=== PATIENT | female | born 1985 | race Caucasian/White ===

== ENCOUNTER 2021-10-26 08:09 | Outpatient (CLI) | payer BC, SELFPAY ==
--- NOTE | ~2021-10-26 | US_ITS ---
EXAMINATION: US abdomen complete EXAM DATE: 10/26/2021 08:52 INDICATION: Unspecified abdominal pain. TECHNIQUE: Multiple grayscale and Doppler images of the complete abdomen were obtained (by a technolo eliceo who performed the scan) and subsequently reviewed. There is no prior study for comparison. FINDINGS: The abdominal aorta is normal in caliber. Visualized portion IVC is patent. The pancreatic head a nd body are normal in appearance. The pancreatic tail is not visualized. There is echogenic liver parenchyma, hepatic steatosis. There are no focal liver lesions identified. There is no evidence of intrahepatic biliary duct dilation. Portal venous flow was seen in the he patopedal, normal direction and has normal Doppler waveform. Common bile duct measures 11 mm, which is dilated but not uncommon for postcholecystectomy status. Right kidney: There is normal contour and echogenicity. It measures 12.1 x 5.0 x 7.0 centimeters. There are no focal renal lesions identified. There is no hydronephrosis. Left kidney: There is normal contour and echogenicity. It measures 13.1 x 5.7 x 5.6 centimeters. T here are no focal renal lesions identified. There is no hydronephrosis. The spleen measures 13.5 x 4.8 centimeters and is morphologically normal. IMPRESSION: 1. Hepatic steatosis. Reviewed, dictated and finalized at location B. IMPRESSION: 1. Hepatic steatosis.
== END 2021-10-26 08:10 ==
PROVIDERS: PCP Family Medicine; Visit Provider Family Medicine
DX: R10.9 Unspecified abdominal pain (principal); K76.0 Fatty (change of) liver, not elsewhere classified
CPT/HCPCS: 76700

== ENCOUNTER 2021-12-18 15:54 | Outpatient (CLI) | payer BC, SELFPAY ==
--- NOTE | ~2021-12-18 | US_ITS ---
EXAMINATION: US thyroid DATE: 12/18/2021 16:09 INDICATION: Goiter. TECHNIQUE: Multiple ultrasound images of the thyroid were obtained. COMPARISON: None. FINDINGS: The right thyroid lobe measures 6.3 x 2.1 x 2.0 cm. The left thyroid lobe measures 5.1 x 1.6 x 1.7 c m. The thyroid is diffusely heterogeneous and hypoechoic. Vascularity is normal. No discrete nodule. IMPRESSION: 1. Heterogeneous thyroid, likely chronic lymphocytic (Martín) thyroiditis. Reviewed, dictated and finalized at location A.
== END 2021-12-18 15:55 ==
PROVIDERS: PCP Family Medicine; Visit Provider Internal Medicine Endocrinology, Diabetes & Metabolism
DX: E04.9 Nontoxic goiter, unspecified (principal)
CPT/HCPCS: 76536

== ENCOUNTER 2024-03-30 09:20 | Outpatient (CLI) | payer BC, SELFPAY ==
--- NOTE | ~2024-03-30 | CT_ITS ---
EXAMINATION: CT abdomen wo/w con DATE: 03/30/2024 10:54 INDICATION: Adrenal hyperplasia TECHNIQUE: Computed tomography (CT) of the abdomen was performed without and with 100 mL Omnipaque-35 0 intravenous contrast utilizing a standard adrenal protocol. Automated exposure control and iterativ e reconstruction technique were employed. The dose-length product was 2631.69 mGy-cm. COMPARISON: None FINDINGS: Lung bases are clear. Heart size is normal. No pericardial or pleural effusion. Diffuse hepatic steat osis. Bladder not visualized and likely surgically absent. Spleen, pancreas, bilateral adrenal glands and kidneys are normal. Postoperative change of prior gastric bypass procedure. Visualized bowels ar e unremarkable with normal appendix. No pathologically enlarged abdominal or upper pelvic lymphadenop athy. Chronic mild likely physiologic anterior wedging at T10-T12. Mild lower thoracic spondylosis. IMPRESSION: 1. Diffuse hepatic steatosis. 2. Normal bilateral adrenal glands. Reviewed, dictated and finalized at location A.
== END 2024-03-30 09:21 | disposition home or self-care (01) ==
DX: E27.0 Other adrenocortical overactivity (principal); K76.0 Fatty (change of) liver, not elsewhere classified
CPT/HCPCS: 74170; Q9967

== ENCOUNTER 2024-05-18 13:29 | Outpatient (CLI) | payer BC, SELFPAY ==
--- NOTE | ~2024-05-18 | MR_ITS ---
Procedure: MR brain/brain stem wo/w con Ordering provider: Violeta Mendez, History: . Disorder of pituitary gland . Comparison: None. Technique: MRI brain with and without contrast. MRI pituitary utilizing thin slice coronal and sagit dixie pre- and postcontrast images per protocol. 20 mL of MultiHance was given IV. FINDINGS: BONES: Normal. CRANIOCERVICAL JUNCTION: normal. MAJOR INTRACRANIAL VESSELS: Normal flow void. OPTIC NERVES AND CRANIAL NERVES VII AND VIII COMPLEXES: Grossly normal. BRAIN PARENCHYMA AND CSF SPACES: No visible white matter disease. The brainstem and cerebellum are n ormal. No acute or chronic intracranial hemorrhage. No extra axial fluid collections. Diffusion weigh nemo and ADC mapping images reveal no recent ischemia. No midline shift or mass effect. PARANASAL SINUSES: Normal. PITUITARY: Partial empty sella turcica is noted. Slight asymmetry is seen in the pituitary gland with right small area of late nonenhancement which may represent an adenoma although this is not the typi joaquina pattern of enhancement. Follow-up advised.No suprasellar abnormality. MASTOIDS: Normal SUPERFICIAL/SURROUNDING SOFT TISSUES: Normal. IMPRESSION: Possible pituitary adenoma in the right paracentral area of the pituitary gland measuring 5 mm. Follo w-up advised. Otherwise, no abnormality seen in the brain. Reviewed, dictated and finalized at location A. IMPRESSION: Possible pituitary adenoma in the right paracentral area of the pituitary gland measuring 5 mm. Follow-up advised. Otherwise, no abnormality seen in the brain .
== END 2024-05-18 13:30 | disposition home or self-care (01) ==
PROVIDERS: Visit Provider Internal Medicine Endocrinology, Diabetes & Metabolism
DX: E23.7 Disorder of pituitary gland, unspecified (principal)
CPT/HCPCS: 70553; A9577

== ENCOUNTER 2025-01-31 08:51 | Outpatient (CLI) | payer BC, SELFPAY ==
--- NOTE | ~2025-01-31 | MR_ITS ---
EXAMINATION: MR brain/brain stem wo/w con DATE: 01/31/2025 10:22 INDICATION: Disorder of pituitary TECHNIQUE: Magnetic resonance imaging (MRI) of the brain and brainstem was performed without and with 19 mL Multihance intravenous contrast. Whole-brain sequences included sagittal T1-weighted FSE, axia l diffusion-weighted FS EPI, axial T2*-weighted GRE, axial T2-weighted FLAIR Propeller, and axial T2- weighted Propeller. Small [id number] sequences included sagittal and coronal T1-weighted FSE cente red at the pituitary. Postcontrast sequences included small [id number] coronal T1-weighted FSE in a time course and sagittal T1-weighted FSE and whole-brain axial T1-weighted FSE. Apparent diffusion coefficient (ADC) maps were created. COMPARISON: 05/18/2024 FINDINGS: There are no areas of restricted diffusion to suggest acute infarction. No intracranial hemorrhage or abnormal intracranial mass lesion. There are no intraparenchymal signal abnormalities seen on the ot her pulse sequences. The ventricles are symmetric and normal in size. No interval change in the pitui tary which occupies the inferior third of the sella with a concave cephalad margin consistent with pa rtially empty sella. The pituitary stalk is midline. Again seen is a subtle inconsistently visualiz ed thin linear region of decreased signal on the post contrast images at the right side of the pituit rosmery on the coronal imaging and measures 1 mm diameter on the sagittal imaging which could represent a small microadenoma or a tiny arterial flow void. There are no abnormal extra-axial fluid collections . Flow voids are seen in the cerebral arteries on the T2-weighted sequences consistent with their exp ected patency. Visualized orbits and soft tissues are unremarkable. No other abnormal enhancing lesio ns on postcontrast imaging. IMPRESSION: 1. Partially empty sella with concave margin to the pituitary which occupies the caudal third of the sella hemorrhage can be seen in the setting of idiopathic intracranial hypertension. Thin linear focu s of decreased signal which is inconsistently visualized in the right side of the pituitary on the po stcontrast coronal imaging. This could represent a small microadenoma although configuration favors a tiny arterial flow void. 2. Otherwise unremarkable brain MRI. Reviewed, dictated and finalized at location A. IMPRESSION: 1. Partially empty sella with concave margin to the pituitary which occupies th e caudal third of the sella hemorrhage can be seen in the setting of idiopathic intracranial hypertension. Thin linear focus of decreased signal which is inco nsistently visualized in the right side of the pituitary on the postcontrast co obed imaging. This could represent a small microadenoma although configuration favors a tiny arterial flow void. 2. Otherwise unremarkable brain MRI.
--- OUTSIDE RECORDS SUMMARY | 2025-01-31 08:55 | XMS_ITS | Clinical Summary ---
Author Organization [facility] Address [address] [place] [address] Phone Care Team Providers Care Psych Rn Name Role Phone Pallavi Meeks MD Primary Care Provider [phone] Allergies Active Allergy Reactions Criticality Noted Date Comments Codeine Anaphylaxis High 11/16/2017 Medications iron,carb/vit C/vit B12/folic (IRON 100 PLUS ORAL) Take by mouth. Activ e ergocalciferol (VITAMIN D2) 50,000 unit capsule Take 1 Capsule (50,000 Units) by mouth every 7 days. 12 Capsule 1 9 Active diazePAM (VALIUM) 5 mg tabletIndicatio ns:Claustrophob ia 1-2 tab 1/hr before procedure and may repeat in 1 hr if needed during the procedure.. 4 Tablet 9 Active Active Problems Problem Noted Date Diagnosed Date Numbness and tingling of right face 01/04/2019 Eye twitch 01/04/2019 Family history of MS (multiple sclerosis) 2018 Fatigue 08/29/2018 Sciatica of right side 08/29/2018 Morbid obesity with BMI of 50.0-59.9, adult 08/02 History of PCOS 08/29/2018 History of tonsillectomy 08/29/2018 Chronic anemia 08/29/2018 Benign positional vertigo 08/29/2018 Vaginal delivery 03/18/2018 Clear vaginal discharge 01/23/2018 Post depression 03/25/2016 NVD, F 7/14 02/11/2016 04/24, Fever, WBC 5.1, UT I/pyelo?, cipro PO, pt refusing IV 04/24/2013 Lower abdominal pain Resolved Problems Problem Noted Date Diagnosed Date Resolved Date labor, AROM(1215), gbs-, B+ 04/24/2013 04/24/2013 Immunizations Immunization Administration Dates Next Due (ADACEL/BOOSTRIX)(10 YR UP) TDAP VACCINE, 0.5ML, IM 01/14/2016 Family History Medical History Relation Name Comments Healthy Father Healthy Mother Relation Name Status Comments Father Alive Mother Alive Social History Tobacco Use Types Packs/Day Years Used Date Smoking Tobacco: Never Smokeless Tobacco: Never Alcohol Use Standard Drinks/Week Comments No 0 (1 standard drink = 0.6 oz pur e alcohol) Comments No Sex and Gender Information Value Date Recorded Sex Assigned at Not on file Legal Sex Female 10:26 PM CDT Gender Identity Not on file Sexual Orientation Not on file Last Filed Vital Signs Vital Sign Reading Time Taken Comments Blood Pressure 122/82 01/04/2019 11:33 AM CDT Pulse 70 01/04/2019 11:33 AM CDT Temperature 36.8 C (98.2 F) 01/04/2019 11:33 AM CDT Respiratory Rate 16 01/04/2019 11:33 AM CDT Oxygen Saturation 97% 01/04/2019 11:33 AM CDT Inhaled Oxygen Concentration - - Weight 174.2 kg (384 lb) 01/04/2019 11:33 AM CDT Height 172.7 cm (5' 8) 01/04/2019 11:33 AM CDT Body Mass Index 58.39 01/04/2019 11:33 AM CDT Plan of Treatment Health Maintenance Due Date Last Done Comments HEPATITIS B VACCINES (1 of 3 - 19+ 3-dose series) 2004 HPV/Cotest (21-29) 2006 CERVICAL CANCER SCREENING 10/10/2015 HPV/Cotest (30-65) 10/10/2015 PAP SMEAR 10/10/2015 Pre-Diabetes and Diabetes Screening 01/04/2022 01/04/2019 Preventative Visit- Commercial 08/01/2024 07/07/2017, 08/22/2012 INFLUENZA VACCINE (#1) 2025 04/01/2018 DTAP/TDAP/TD VACCINES (3 - T d or Tdap) 01/13/2026 01/14/2016, 06/05/2013 HPV VACCINES Aged Out No longer eligi ble based on patient's age to complete this topic Procedures Procedure Name Priority Date/Time Associated Diagnosis Comments HEMOGLOBIN A1C Routine 01/04/2019 12:34 PM CDT Neurological deficit present Numbness and tingling of right face Fatigue, unspecified type Chronic anemia Morbid obesity with BMI of 50.0-59.9, adult (CMS/[facility]) Normal routine physical examination from Last 3 Months or Most Recently Relevant to Health Maintenance Results * HEMOGLOBIN A1C (01/04/2019 12:34 PM CDT) HEMOGLOBIN A1C 5.6 <5.7 % 01/04/2019 7:31 PM CDT [facility] EST. AVG GLUCOSE, A1C 114 mg/dL 01/04/2019 7:31 PM CDT [facility] Blood Venipuncture / Unknown 01/04/2019 12:34 PM CDT 01/04/2019 12:34 PM CDT Narrative [facility] - 01/04/2019 7:31 PM CDT HGB A1C INTERPRETATION NORMAL: <5.7% PRE-DIABETES: 5.7 - 6.4% DIABETES: 6.5% OR GREATER Pallavi Meeks MD CHEMISTRY ORDERABLES Final Resu lt [facility] [employer] [facility] CLIA# [id number] [address] [place] [address] [address] from Last 3 Months or Most Recently Relevant to Health Maintenance Insurance [address] [place] [place] [address] [employer] [facility] Address: [facility] [id number] [place] [id number] [address] [id number] Advance Directives For more information, please contact: [phone] * Full Code (Latest Code Status on File) Date Activated Date Inactivated Comments 03/18/2018 7:39 PM 03/19/2018 7:38 PM * Full Code Date Activated Date Inactivated Comments 03/18/2018 3:36 PM 03/18/2018 7:39 PM * Full Code Date Activated Date Inactivated Comments 01/23/2018 5:24 PM 01/23/2018 9:01 PM * Full Code Date Activated Date Inactivated Comments 11/16/2017 1:31 PM 11/16/2017 4:34 PM * Full Code Date Activated Date Inactivated Comments 02/12/2016 4:58 AM 02/14/2016 1:03 PM Care Teams Psych Rn Relationship Specialty [place] [address] [place] [address] PCP - General Internal Medicine 08/29/18
--- OUTSIDE RECORDS SUMMARY | 2025-01-31 08:55 | XMS_ITS | Encounter Summary ---
Author Organization [facility] Address [address] [place] [address] Phone Care Team Providers Care Math And Science Instructor Name Role Phone Andre Novoa MD Unavailable [phone] Jacki Medel NP Primary Care Provider [phone] Encounter Details Date Type Department Care Team (Late st Contact Info) Description 01/31/2025 Orders Only [facility] [address] [place] [address] [address] [place] [address] Katya Murillo RN Iron deficiency anemia due to chronic blood loss (Primary Dx) Social History Tobacco Use Types Packs/Day Years Used Date Smoking Tobacco: Never Smokeless Tobacco: Never Alcohol Use Standard Drinks/Week Comments Yes 0 (1 standard drink = 0.6 oz pur e alcohol) AUDIT-C Answer Date Recorded Q1: How often do you have a drink containing alc ohol? Monthly or less 03/19/2022 Q2: How many drinks containi ng alcohol do you have on a typical day when you are drinking? 1 or 2 03/19/2022 Q3: How often do you have si x or more drinks on one occasion? 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 Gender Identity Not on file Sexual Orientation Not on file documented as of this encounter Plan of Treatment Scheduled Orders Name Type Priority Associated Diagnoses Orde r Schedule CBC with auto differential Lab Routine Iron deficiency anemia due to chronic blood loss Expected: 02/06/2025, Expires: 01/31/2026 Ferritin Lab Routine Iron deficiency anemia due to chronic blood loss Expected: 02/06/2025, Expires: 01/31/2026 Iron profile w/ IBC Lab Routine Iron deficiency anemia due to chronic blood loss Expected: 02/06/2025, Expires: 01/31/2026 Vitamin B12 Lab Routine Iron deficiency anemia due to chronic blood loss Expected: 02/06/2025, Expires: 01/31/2026 Folate Lab Routine Iron deficiency anemia due to chronic blood loss Expected: 02/06/2025, Expires: 01/31/2026 documented as of this encounter Visit Diagnoses Diagnosis Iron deficiency anemia due to chronic blood loss- Primary Iron deficiency anemia secondary to blood loss (chronic) documented in this encounter Orders Appointment Requests Count Last Ordered Date Fi rst Ordered Date ONCBCN LAB APPOINTMENT 1 01/31/2025 documented in this encounter Care Teams Math And Science Instructor Relationship Specialty Start Date End Date Jacki Medel NP [address] [address] PCP - General Nurse Practitioner 02/01/24 Andre Novoa MD [address] [place] [address] MEDICAL ONCOLOGY, [facility] [address] [place] [address] Medical Oncologist/Men'S Golf Coach Hematology and Oncology 02/01/24 documented as of this encounter
--- OUTSIDE RECORDS SUMMARY | 2025-01-31 08:55 | XMS_ITS | Encounter Summary ---
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 Gender Identity Not on file Sexual Orientation Not on file documented as of this encounter Plan of Treatment Not on file documented as of this encounter Procedures Procedure Name Priority Date/Time Associated Diagnosis Comments DIFFERENTIAL AUTO Routine 01/30/2025 1:0 1 PM CDT Iron deficiency anemia due to chronic blood loss IRON PROFILE W/ IBC Routine 01/30/2025 1 :01 PM CDT Iron deficiency anemia due to chronic blood loss CBC WITH AUTO DIFFERENTIAL Routine 01/30/2025 1:01 PM CDT Iron deficiency anemia due to chronic blood loss FOLATE Routine 01/30/2025 1:01 PM CDT Iron deficiency anemia due to chronic blood loss FERRITIN Routine 01/30/2025 1:01 PM CDT Iron deficiency anemia due to chronic blood loss VITAMIN B12 Routine 01/30/2025 1:01 PM CDT Iron deficiency anemia due to chronic blood loss documented in this encounter Results * Differential, auto (01/30/2025 1:01 PM CDT) [facility] Neutrophil abs 4.38 1.50 - 6.50 K/cumm Comment:Testing performed by : [address] [address] Imm gran abs 0.02 0.00 - 0.10 K/cumm CHANCE Comment:Testing performed by : [address] [address] Lymphocyte abs 1.93 0.80 - 3.30 K/cumm CHANCE Comment:Testing performed by : [address] [address] Monocyte abs 0.48 0.20 - 0.80 K/cumm CHANCE Comment:Testing performed by : [address] [address] Eosinophil abs 0.13 0.00 - 0.50 K/cumm CHANCE Comment:Testing performed by : [address] [address] Basophil abs 0.02 0.00 - 0.10 K/cumm CHANCE Comment:Testing performed by : [address] [address] Neutrophil pct 62.9 % CHANCE Comment: Interpretive Data Percent cell count reference ranges are not reported, since discordance with absolute values may lead to misinterpretation of CBC data. Current Interpretive Data was last revised on 2017. Testing performed by: [address] [address] Imm gran pct 0.3 % [facility] Comment: Interpretive Data Percent cell count reference ranges are not reported, since discordance with absolute values may lead to misinterpretation of CBC data. Current Interpretive Data was last revised on 2017. Testing performed by: [address] [address] Lymphocyte pct 27.7 % C[facility] Comment: Interpretive Data Percent cell count reference ranges are not reported, since discordance with absolute values may lead to misinterpretation of CBC data. Current Interpretive Data was last revised on 2017. Testing performed by: [address] [address] Monocyte pct 6.9 % [facility] Comment: Interpretive Data Percent cell count reference ranges are not reported, since discordance with absolute values may lead to misinterpretation of CBC data. Current Interpretive Data was last revised on 2017. Testing performed by: [address] [address] Eosinophil pct 1.9 % [facility] Comment: Interpretive Data Percent cell count reference ranges are not reported, since discordance with absolute values may lead to misinterpretation of CBC data. Current Interpretive Data was last revised on 2017. Testing performed by: [address] [address] Basophil pct 0.3 % [facility] Comment: Interpretive Data Percent cell count reference ranges are not reported, since discordance with absolute values may lead to misinterpretation of CBC data. Current Interpretive Data was last revised on 2017. Testing performed by: [address] [address] Blood 01/30/2025 1:01 PM CDT 01/30/2025 1:03 PM CDT Andre Novoa MD LAB BLOOD ORDERABLES Fi nal Result CHACNE [address] [facility] Department [place] [address] * CBC with auto differential (01/30/2025 1:01 PM CDT) WBC 6.96 3.80 - 9.90 K/cumm Comment:Testing performed by : [address] [address] Hgb 13.1 11.9 - 15.5 g/dL CHANCE Comment:Testing performed by : [address] [address] Hct 39.7 35.6 - 45.5 % CHANCE Comment:Testing performed by : [address] [address] Plt 329 150 - 400 K/cumm CHANCE Comment:Testing performed by : [address] [address] MPV 9.4 9.1 - 12.3 fL CHANCE Comment:Testing performed by : [address] [address] RBC 4.79 3.90 - 5.20 M/cumm CHANCE Comment:Testing performed by : [address] [address] MCV 82.9 81.3 - 96.4 fL [facility]ANCE Comment:Testing performed by : [address] [address] MCH 27.3 27.1 - 33.3 pg CHANCE Comment:Testing performed by : [address] [address] MCHC 33.0 32.3 - 35.7 g/dL CHANCE Comment:Testing performed by : [address] [address] RDW CV 13.2 11.1 - 14.9 % CHANCE Comment:Testing performed by : [address] [address] RDW SD 39.8 35.7 - 48.1 fL CHANCE Comment:Testing performed by : [address] [address] NRBC abs 0.00 0.00 - 0.01 K/cumm CHANCE Comment:Testing performed by : [address] [address] ANC Prelim 4.38 1.50 - 6.50 K/cumm [facility] [place] Comment: Interpretive Data The rapid ANC is a preliminary automated count and may vary from the final ANC (Neut Abs) reported in the WBC differential that follows. Current interpretive data was last revised 2024. Testing performed by: [address] [address] Blood 01/30/2025 1:01 PM CDT 01/30/2025 1:03 PM CDT Andre Novoa MD LAB BLOOD ORDERABLES Fi nal Result Performing Organization Address City/[facility]/ZIP Co de Phone Number [address] [place] [address] * Ferritin (01/30/2025 1:01 PM CDT) Ferritin 53 13 - 150 ng/mL Comment:Testing performed by : [address] [address] Blood 01/30/2025 1:01 PM CDT 01/30/2025 4:13 PM CDT Andre Novoa MD LAB BLOOD ORDERABLES Fi nal Result [address] [place] [address] * Iron profile w/ IBC (01/30/2025 1:01 PM CDT) Iron See Comment 20 - 944 Comment: Unable to perform testing due to: hemolysis. If testing still needed, please re-order and contact the patient to return for testing. Testing performed by: [address] [address] TIBC See Comment 250 - 400 [facility] Comment: Unable to perform testing due to: hemolysis. If testing still needed, please re-order and contact the patient to return for testing. Testing performed by: [address] [address] Transferrin saturation See Comment 20 - 50 [facility] Comment: Unable to perform testing due to: hemolysis. If testing still needed, please re-order and contact the patient to return for testing. Testing performed by: [address] [address] Blood 01/30/2025 1:01 PM CDT 01/30/2025 4:13 PM CDT Andre Novoa MD LAB BLOOD ORDERABLES Fi nal Result Performing Organization Address [facility] Co de Phone Number [address] [place] [address] * Vitamin B12 (01/30/2025 1:01 PM CDT) Pathologist [facility] Vitamin B12 See Comment [phone] Comment: Unable to perform testing due to: hemolysis. If testing still needed, please re-order and contact the patient to return for testing. Testing performed by: [address] [address] Blood 01/30/2025 1:01 PM CDT 01/30/2025 4:14 PM CDT Andre Novoa MD LAB BLOOD ORDERABLES Fi nal Result Performing Organization Address [facility] Co de Phone Number [address] [facility] [place] [address] * Folate (01/30/2025 1:01 PM CDT) Folic acid See Comment >=5.0 Comment: Unable to perform testing due to: hemolysis. If testing still needed, please re-order and contact the patient to return for testing. Testing performed by: [address] [address] Blood 01/30/2025 1:01 PM CDT 01/30/2025 4:14 PM CDT us Andre Novoa MD LAB BLOOD ORDERABLES Fi nal Result [facility] [address] [facility] Department [place] [address] documented in this encounter Visit Diagnoses Diagnosis Iron deficiency anemia due to chronic blood loss Iron deficiency anemia secondary to blood loss (chronic) documented in this encounter Orders Appointment Requests Count Last Ordered Date Fi rst Ordered Date ONCBCN LAB APPOINTMENT 1 01/30/2025 documented in this encounter Care Teams Server Systems Administrator Relationship Specialty Start Date End Date Jacki Medel NP [address] [facility] [address] [place] [address] PCP - General Nurse Practitioner 02/01/24 Andre Novoa MD [address] [place] [address] MEDICAL ONCOLOGY, [facility] [address] [place] [address] Medical Oncologist/Project Surveyor Hematology and Oncology 02/01/24 documented as of this encounter
--- OUTSIDE RECORDS SUMMARY | 2025-01-31 08:55 | XMS_ITS | Encounter Summary ---
Author Organization [facility] Address [address] [place] [address] Phone Care Team Providers Care Medical Administrative Assistant Name Role Phone Andre Novoa MD Unavailable [phone] Jacki Medel NP Primary Care Provider [phone] Encounter Details Date Type Department Care Team (Late st Contact Info) Description 01/30/2025 1:15 PM CDT Office Visit [facility] Oncology [facility] [address] [place] [address] Andre Novoa MD [address] [place], [place] [id number] Iron deficiency anemia due to chronic blood [...] on file 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 Gender Identity Not on file Sexual Orientation Not on file documented as of this encounter Last Filed Vital Signs Vital Sign Reading Time Taken Comments Blood Pressure 117/77 01/30/2025 1:07 PM CDT Pulse 88 01/30/2025 1:07 PM CDT Temperature 36.7 C (98 F) 01/30/2025 1:07 PM CDT Respiratory Rate 16 01/30/2025 1:07 PM CDT Oxygen Saturation 97% 01/30/2025 1:07 PM CDT Inhaled Oxygen Concentration - - Weight 158.9 kg (350 lb 5 oz) 01/30/2025 1:07 PM CDT Height 170 cm (5' 6.93) 01/30/2025 1:07 PM CDT Body Mass Index 54.98 01/30/2025 1:07 PM CDT documented in this encounter Progress Notes * Andre Novoa MD - 01/30/2025 1:15 PM CDT Hematology/Oncology Return Visit Date: 01/30/2025 Primary Care Physician: Jacki Medel, CARL Julianna Martinez 39 y.o. female Interval History: Ms. Martinez is a 39 y.o. year old female who returns today for follow up with Hematology for Iron deficiency anemia. Since the last visit, the patient has been doing well but still has complaints of easy fatigability HPI: This is a 39-year-old woman with remote history of iron deficiency that was secondary probably to absorbed of defect from gastric bypass surgery and formerly heavy menstrual periods, but she did havehysterectomy Ultimately, the patient did require intravenous iron therapy but she has not required intravenous iron therapy for some time now. In addition, while she lost a significant amount of weight following her gastric bypass surgery in 2008 she subsequently became and following that she regained all her weight and she currently has a weight of 166 kg. 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 She does take however folic acid by mouth but she takes a 1000 mcg of B12 parenterally every week. CBC performed January 30, 2025 revealed a white blood cell count of 6900 hemoglobin of 13.1 hematocrit 39.7 and a platelet count of [id number]. Cell indices were completely normal. Last iron studies were performed 01/2024 and she had a iron of 55 ferritin of 83 and 15% saturation. Past Medical History: Diagnosis Date ??? Anemia ??? Anxiety ??? Complex atypical endometrial hyperplasia ??? Depression Depression ??? Frequent headaches ??? HX OTHER MEDICAL fatty liver related to obesity ??? Hypotension ??? Hypothyroidism ??? Low iron ??? Morbid obesity (HCC) ??? Motion sickness long distances in car Past Surgical History: Procedure Laterality Date ??? CHOLECYSTECTOMY 2008 Cholecystectomy ??? COLONOSCOPY W/ ENDOSCOPIC US 2021 ??? DILATION AND CURETTAGE OF UTERUS 2021 ??? GASTRIC BYPASS 2007 Gastric bypass ??? TONSILLECTOMY 2002 Tonsillectomy ??? WISDOM TOOTH EXTRACTION 2001 Current Outpatient Medications: ??? BD Insulin Syringe Ultra-Fine, as directed ??? medical cannabis, 1 Dose, PRN ??? Vitamin D3, take by Oral route (Patient taking differently: 5,000 Units, oral, Every morning) ??? cyanocobalamin, 1,000 mcg, subcutaneous, Weekly ??? dextroamphetamine-amphetamine, 5 mg, oral, BID ??? diphenhydrAMINE, 50 mg, oral, Nightly PRN ??? ergocalciferol, TAKE 1 CAPSULE BY MOUTH ONE TIME PER WEEK IN THE MORNING ??? ferrous sulfate, Take 1 tablet (325 mg total) by mouth ??? FLUoxetine, 40 mg, oral, QAM ??? FLUoxetine, Take 1 capsule (20 mg total) by mouth Takes with 40mg to =60 mg daily ??? folic acid, 1,000 mcg, oral, QAM ??? levothyroxine, 125 mcg, oral, Daily - 0600 ??? medroxyPROGESTERone, ??? melatonin, 6 mg, oral, Nightly PRN ??? metFORMIN XR, 500 mg, oral, Nightly ??? multivitamin with minerals, 1 tablet, oral, QAM ??? Ozempic, INJECT 1 MG SUBCUTANEOUSLY ONCE A WEEK 90 DAYS ??? spironolactone, 100 mg, oral, QAM ??? Unithroid, 50 mcg, oral, QAM Allergies Allergen Reactions ??? Codeine Anaphylaxis Tolerated Hydromorphone and Fentanyl during surgery 03/25/22. Social History Tobacco Use ??? Smoking status: Never ??? Smokeless tobacco: Never Substance and Sexual Activity ??? Drug use: Yes Frequency: 1.5 times per week Types: Marijuana Comment: CBD/THC gummy ??? Sexual activity: Defer Alcohol Use: Not At Risk (03/19/2022) AUDIT-C ??? Frequency of Alcohol Consumption: Monthly or less ??? Average Number of Drinks: 1 or 2 ??? Frequency of Binge Drinking: Never Family History Problem Relation Age of Onset ??? Hypertension Mother ??? Other Mother Alive and well; ??? Depression Mother Depression; ??? Esophageal cancer Mother ??? Stroke Mother ??? Dementia Father ??? Coronary artery disease Father Coronary artery disease; ??? Hypertension Father Hypertension; ??? Heart attack Father ??? Asthma Sister Asthma; ??? Other (hpv) Sister ??? Allergies Sister ??? No Known Problems Sister ??? Allergies Brother ??? Multiple sclerosis Brother ??? Asthma Brother Asthma; ??? Depression Brother Depression; ??? Uterine cancer Maternal Grandmother ??? Prostate cancer Maternal Grandfather Cancer -prostate; ??? Stroke Paternal Grandmother ??? Heart attack Paternal Grandfather ??? No Known Problems Child ??? Asthma Child ??? Allergies Child ??? Autism Child ??? No Known Problems Child ??? Breast cancer Father's Sister Cancer -breast; ??? Breast cancer Cousin ??? Ovarian cancer Maternal Great-Grandmother ??? Colon cancer Maternal Great-Grandfather ??? Other Other No family history of Diabetes mellitus; ??? Other Other No family history of Stroke; ??? Anesthesia problems Neg Hx Review of Systems: Review of Systems Constitutional: Positive for fatigue. Negative for unexpected weight change. 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 Physical Exam: Physical Exam Constitutional: Appearance: She is obese. Cardiovascular: Rate and Rhythm: Normal rate and regular rhythm. Psychiatric: Mood and Affect: Mood normal. Behavior: Behavior normal. Thought Content: Thought content normal. Judgment: Judgment normal. Lab/Radiology/Diagnostic Review: Recent Results (from the past 12 weeks) CBC with auto differential Collection Time: 01/30/25 1:01 PM Result Value Ref Range WBC 6.96 3.80 - 9.90 K/cumm Hgb 13.1 11.9 - 15.5 g/dL Hct 39.7 35.6 - 45.5 % Plt 329 150 - 400 K/cumm MPV 9.4 9.1 - 12.3 fL RBC 4.79 3.90 - 5.20 M/cumm MCV 82.9 81.3 - 96.4 fL MCH 27.3 27.1 - 33.3 pg MCHC 33.0 32.3 - 35.7 g/dL RDW CV 13.2 11.1 - 14.9 % RDW SD 39.8 35.7 - 48.1 fL NRBC abs 0.00 0.00 - 0.01 K/cumm ANC Prelim 4.38 1.50 - 6.50 K/cumm Differential, auto Collection Time: 01/30/25 1:01 PM Result Value Ref Range Neutrophil abs 4.38 1.50 - 6.50 K/cumm Imm gran abs 0.02 0.00 - 0.10 K/cumm Lymphocyte abs 1.93 0.80 - 3.30 K/cumm Monocyte abs 0.48 0.20 - 0.80 K/cumm Eosinophil abs 0.13 0.00 - 0.50 K/cumm Basophil abs 0.02 0.00 - 0.10 K/cumm Neutrophil pct 62.9 % Imm gran pct 0.3 % Lymphocyte pct 27.7 % Monocyte pct 6.9 % Eosinophil pct 1.9 % Basophil pct 0.3 % No results found. Patient Active Problem List Diagnosis Date Noted ??? Complex atypical endometrial hyperplasia 03/16/2022 ??? Menorrhagia with irregular cycle 03/16/2022 ??? Lower abdominal pain 03/04/2022 ??? Painless rectal bleeding 03/04/2022 ??? Iron deficiency anemia due to chronic blood loss 02/04/2022 ??? Hypothyroidism 01/06/2022 ??? Anxiety 10/15/2021 ??? Attention deficit hyperactivity disorder 10/15/2021 ??? Depressive disorder 10/15/2021 ??? Neuropathy 10/15/2021 ??? Polycystic ovary syndrome 10/15/2021 ??? 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 Neuropathic pain 01/25/2019 ??? Eye twitch 01/04/2019 ??? Numbness and tingling of right face 01/04/2019 ??? Benign positional vertigo 08/29/2018 ??? Chronic anemia 08/29/2018 ??? Fatigue 08/29/2018 ??? Sciatica of right side 08/29/2018 ??? History of surgical procedure 04/28/2011 ??? Irregular menstrual cycle 06/08/2010 Assessment: In summary, this is a 39-year-old woman who had gastric bypass surgery in 2008 as described above. Subsequently following a , all the weight that she had lost she regained. She did require IV iron in the past however her current a CBC and platelet count as well as iron studies are normal and she has not received intravenous iron for several years. Plan: Monitor iron studies as well as B12 and folic acid levels. It is highly likely that she does not require parental B12 in that dose and that frequency but will await the B12 levels. Otherwise her follow-up in probably be made for 1 year. My total encounter time on 01/30/2025 was 25 minutes which was spent in the activities documented in the note. This includes time spent prior to the visit and after the visit in direct care of the patient. This time does not include time spent in any separately reportable services. Dr. Andre Novoa [facility] Hematology Department documented in this encounter Plan of Treatment Scheduled Orders Name Type Priority Associated Diagnoses Orde r Schedule CBC with auto differential Lab Routine Iron deficiency anemia due to chronic blood loss Expected: 01/29/2026, Expires: 08/02/2026 Ferritin Lab Routine Iron deficiency anemia due to chronic blood loss Expected: 01/29/2026, Expires: 08/02/2026 Iron profile w/ IBC Lab Routine Iron deficiency anemia due to chronic blood loss Expected: 01/29/2026, Expires: 08/02/2026 Vitamin B12 Lab Routine Iron deficiency anemia due to chronic blood loss Expected: 01/29/2026, Expires: 08/02/2026 Folate Lab Routine Iron deficiency anemia due to chronic blood loss Expected: 01/29/2026, Expires: 08/02/2026 documented as of this encounter Visit Diagnoses Diagnosis Iron deficiency anemia due to chronic blood loss- Primary Iron deficiency anemia secondary to blood loss (chronic) documented in this encounter Orders Appointment Requests Count Last Ordered Date Fi rst Ordered Date ONCBCN CLINIC APPOINTMENT REQUEST 2 025 ONCBCN LAB APPOINTMENT 1 01/30/2025 documented in this encounter Care Teams Medical Administrative Assistant Relationship Specialty Start Date End Date Jacki Medel NP [address] [facility] [address] [place] [address] PCP - General Nurse Practitioner 02/01/24 Andre Novoa MD [facility], [facility] [address] [place] [address] Medical Oncologist/Water Hydrant Installer Hematology and Oncology 02/01/24 documented as of this encounter
--- OUTSIDE RECORDS SUMMARY | 2025-01-31 08:55 | XMS_ITS | Referral Summary ---
Author Organization [facility] Address [address] [place] [id number] Care Team Providers Care Job Change Crew Member Name Role Phone Andre Novoa MD Unavailable [phone] Jacki Medel NP Primary Care Provider [phone] Encounters Date Type Department Care Team Description 01/31/2025 Orders Only [facility] Oncology [address] [place] [phone] Katya Murillo RN Iron deficiency anemia due to chronic blood loss (Primary Dx) 01/30/2025 12:45 PM CDT Lab [facility] at [address] [id number] Iron deficiency anemia due to chronic blood loss 01/30/2025 1:15 PM CDT Office Visit [facility] Oncology [address] [place] [phone] Andre Novoa MD Iron deficiency anemia due to chronic blood loss (Primary Dx) 11/28/2024 Telephone [facility] Oncology [address] [place] [phone] Remedios Johnson, TEMPLATE CLERK from Last 3 Months Allergies Active Allergy Reactions Criticality Noted Date Comments Codeine Anaphylaxis High 11/16/2017 Tolerated Hydromorphone and Fentanyl during surgery 03/25/22. Medications cholecalciferol (VITAMIN D3) 2,000 unit capsule take by Oral route 0 0 10/15/19 15 Active Additional Information Patient taking differently: 5,000 Units oral Every morning, Informant: Self, Reported on 01/30/2025 multivitamin with minerals tabletIndications :supplement Take 1 tablet by mouth every morning Active ferrous sulfate 325 mg (65 mg of elemental iron) tabletIndications :Iron Deficiency Anemia Take 1 tablet (325 mg total) by mouth Active FLUoxetine (PROzac) 20 mg capsuleIndication s:depression Take 1 capsule (20 mg total) by mouth Takes with 40mg to =60 mg daily 01/19/20 22 Active FLUoxetine (PROzac) 10 mg tablet/capsuleInd ications:Anxiety with Depression Take 4 tablet/capsule (40 mg total) by mouth every morning 60 mg daily Active metFORMIN XR (GLUCOPHAGE XR) 500 mg 24 hr tabletIndications :prediabetic Take 1 tablet (500 mg total) by mouth nightly 02/27/20 22 Active spironolactone (ALDACTONE) 50 mg tabletIndications :Polycystic Ovarian Syndrome Take 2 tablets (100 mg total) by mouth every morning 02/29/20 22 Active BD Insulin Syringe Ultra-Fine 1 mL 31 gauge x 5/16 syringe as directed 02/29/20 22 Active cyanocobalamin (Vitamin B-12) 1,000 mcg/mL injectionIndicati ons:Vitamin B12 Deficiency Inject 1 mL (1,000 mcg total) under the skin once a week Tuesday02/29/20 22 Active dextroamphetamine -amphetamine (ADDERALL) 5 mg tabletIndications :Attention-Defici t Hyperactivity Disorder Take 1 tablet (5 mg total) by mouth 2 (two) times a day 03/01/20 22 Active Unithroid 50 mcg tabletIndications :hypothyroidism Take 1 tablet (50 mcg total) by mouth every morning 02/29/20 22 Active medroxyPROGESTERo ne (PROVERA) 10 mg tablet 03/15/20 22 Active melatonin tabletIndications :sleep Take 2 tablets (6 mg total) by mouth nightly as needed for sleep Active diphenhydrAMINE (BENADRYL) 50 mg capsuleIndication s:sleep Take 1 capsule (50 mg total) by mouth nightly as needed for itching or sleep Active cannabidiol, CBD, (medical cannabis) eachIndications:p ain 1 Dose as needed 40 mg CBD+20mg THC Active folic acid (FOLVITE) 1 mg tablet Take 1 tablet (1,000 mcg total) by mouth every morning 03/14/20 Active ergocalciferol (VITAMIN D) 50,000 unit capsule TAKE 1 CAPSULE BY MOUTH ONE TIME PER WEEK IN THE MORNING 02/10/20 Active Ozempic 1 mg/dose (4 mg/3 mL) pen injector injection INJECT 1 MG SUBCUTANEOUSLY ONCE A WEEK 90 DAYS Active levothyroxine (SYNTHROID) 125 mcg tablet Take 1 tablet (125 mcg total) by mouth brickmason before breakfast Active Active Problems Problem Noted Date Diagnosed Date Complex atypical endometrial hyperplasia 022 Overview (03/16/2022): Added automatically from request for surgery [id number] Menorrhagia with irregular cycle 03/16/2022 Overview (03/16/2022): Added automatically from request for surgery [id number] Lower abdominal pain 03/04/2022 Painless rectal bleeding 03/04/2022 Iron deficiency anemia due to chronic blood loss 02/04/2022 Hypothyroidism 01/06/2022 Anxiety 10/15/2021 Attention deficit hyperactivity disorder 022 Depressive disorder 10/15/2021 Neuropathy 10/15/2021 Polycystic ovary syndrome 10/15/2021 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 Neuropathic pain 01/25/2019 Eye twitch 01/04/2019 Numbness and tingling of right face 01/04/2019 Benign positional vertigo 08/29/2018 Chronic anemia 08/29/2018 Fatigue 08/29/2018 Sciatica of right side 08/29/2018 History of surgical procedure 04/28/2011 Overview (11/05/2016): BARIATRIC SURGERY STATUS Irregular menstrual cycle 06/08/2010 Overview (11/04/2016): IRREGULAR MENSTRUATION Immunizations Immunization Administration Dates Next Due Influenza, Quadrivalent, Spl it, Preservative Free, Intradermal 05/19/2016,05/01/2015 Influenza, Quadrivalent, Spl it, Preservative Free, Intramuscular 06/12/2021,04/29/2020 Influenza, Trivalent, IM (MDV) 04/01/2013 Influenza, Trivalent, Preservative Free, Intramu scular 04/14/2018 Tdap 01/14/2016 Social History Tobacco Use Types Packs/Day Years Used Date Smoking Tobacco: Never Smokeless Tobacco: Never Tobacco Cessation:Counseling Given: Not Answered Alcohol Use Standard Drinks/Week Comments Yes 0 [...] on file 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 Gender Identity Not on file Sexual Orientation [...] Mass Index 54.98 01/30/2025 1:07 PM CDT Plan of Treatment Not on file Procedures Procedure Name Priority Date/Time Associated Diagnosis [...] deficiency anemia due to chronic blood loss from Last 3 Months Results * Differential, auto (01/30/2025 1:01 PM CDT) Pathologist [facility] Neutrophil abs 4.38 1.50 - 6.50 K/cumm Comment:Testing performed by : [address] [address] Imm gran abs 0.02 0.00 - 0.10 K/cumm [facility]ANCE Comment:Testing performed by : [address] [address] Lymphocyte abs 1.93 0.80 - 3.30 K/cumm [facility] Comment:Testing performed by : [address] [address] Monocyte abs 0.48 0.20 - 0.80 K/cumm [facility]ANCE Comment:Testing performed by : [address] [address] Eosinophil abs 0.13 0.00 - 0.50 K/cumm [facility]ANCE Comment:Testing performed by : [address] [address] Basophil abs 0.02 0.00 - 0.10 K/cumm [facility]ANCE Comment:Testing performed by : [address] [address] Neutrophil pct 62.9 % [facility] Comment: Interpretive Data Percent cell count reference ranges are not reported, since discordance with absolute values may lead to misinterpretation of CBC data. Current Interpretive Data was last revised on 2017. Testing performed by: [address] [address] Imm gran pct 0.3 % [facility] Comment: Interpretive Data Percent cell count reference ranges are not reported, since discordance with absolute values may lead to misinterpretation of CBC data. Current Interpretive Data was last revised on 2017. Testing performed by: [address] [address] Lymphocyte pct 27.7 % [facility] Comment: Interpretive Data Percent cell count reference ranges are not reported, since discordance with absolute values may lead to misinterpretation of CBC data. Current Interpretive Data was last revised on 2017. Testing performed by: [address] [address] Monocyte pct 6.9 % [facility] Comment: Interpretive Data Percent cell count reference ranges are not reported, since discordance with absolute values may lead to misinterpretation of CBC data. Current Interpretive Data was last revised on 2017. Testing performed by: [address] [address] Eosinophil pct 1.9 % [facility] Comment: Interpretive Data Percent cell count reference ranges are not reported, since discordance with absolute values may lead to misinterpretation of CBC data. Current Interpretive Data was last revised on 2017. Testing performed by: [address] [address] Basophil pct 0.3 % [facility] Comment: Interpretive Data Percent cell count reference ranges are not reported, since discordance with absolute values may lead to misinterpretation of CBC data. Current Interpretive Data was last revised on 2017. Testing performed by: [address] [address] Blood 01/30/2025 1:01 PM CDT 01/30/2025 1:03 PM CDT us Andre Novoa MD LAB BLOOD ORDERABLES Fi nal Result [facility] [address] [facility] Department [place] [address] * Iron profile w/ IBC (01/30/2025 1:01 PM CDT) Iron See Comment 68 - 534 Comment: Unable to perform testing due to: hemolysis. If testing still needed, please re-order and contact the patient to return for testing. Testing performed by: [address] [address] TIBC See Comment 250 - 400 [facility] Comment: Unable to perform testing due to: hemolysis. If testing still needed, please re-order and contact the patient to return for testing. Testing performed by: [address] [address] Transferrin saturation See Comment 20 - 50 [facility] Comment: Unable to perform testing due to: hemolysis. If testing still needed, please re-order and contact the patient to return for testing. Testing performed by: [address] [address] Blood 01/30/2025 1:01 PM CDT 01/30/2025 4:13 PM CDT us Andre Novoa MD LAB BLOOD ORDERABLES nal Result Performing Organization Address City/State/[facility] Co de Phone Number [facility] [address] [facility] Department [place] [address] * CBC with auto differential (01/30/2025 1:01 PM CDT) WBC 6.96 3.80 - 9.90 K/cumm Comment:Testing performed by : [address] [address] Hgb 13.1 11.9 - 15.5 g/dL [facility] Comment:Testing performed by : [address] [address] Hct 39.7 35.6 - 45.5 % [facility] Comment:Testing performed by : [address] [address] Plt 329 150 - 400 K/cumm [facility]AN[facility] Comment:Testing performed by : [address] [address] MPV 9.4 9.1 - 12.3 fL [facility] Comment:Testing performed by : [address] [address] RBC 4.79 3.90 - 5.20 M/cumm [facility] Comment:Testing performed by : [address] [address] MCV 82.9 81.3 - 96.4 fL [facility] Comment:Testing performed by : [address] [address] MCH 27.3 27.1 - 33.3 pg [facility] Comment:Testing performed by : [address] [address] MCHC 33.0 32.3 - 35.7 g/dL [facility] Comment:Testing performed by : [address] [address] RDW CV 13.2 11.1 - 14.9 % [facility] Comment:Testing performed by : [address] [address] RDW SD 39.8 35.7 - 48.1 fL [facility] Comment:Testing performed by : [address] [address] NRBC abs 0.00 0.00 - 0.01 K/cumm [facility] Comment:Testing performed by : [address] [address] ANC Prelim 4.38 1.50 - 6.50 K/cumm [facility] Comment: Interpretive Data The rapid ANC is a preliminary automated count and may vary from the final ANC (Neut Abs) reported in the WBC differential that follows. Current interpretive data was last revised 2024. Testing performed by: [address] [address] Blood 01/30/2025 1:01 PM CDT 01/30/2025 1:03 PM CDT us Andre Novoa MD LAB BLOOD ORDERABLES Fi nal Result [facility] [address] [facility] Department [place] [address] * Folate (01/30/2025 1:01 PM CDT) [facility] Folic acid See Comment >=5.0 Comment: Unable to perform testing due to: hemolysis. If testing still needed, please re-order and contact the patient to return for testing. Testing performed by: [address] [address] Blood 01/30/2025 1:01 PM CDT 01/30/2025 4:14 PM CDT Andre Novoa MD LAB BLOOD ORDERABLES Fi nal Result [facility] [address] [place] [address] * Ferritin (01/30/2025 1:01 PM CDT) [facility] Ferritin 53 13 - 150 ng/mL Comment:Testing performed by : [address] [address] Blood 01/30/2025 1:01 PM CDT 01/30/2025 4:13 PM CDT Andre Novoa MD LAB BLOOD ORDERABLES Fi nal Result Performing Organization Address [facility] Co de Phone Number BEN[address] [place] [address] * Vitamin B12 (01/30/2025 1:01 PM CDT) [facility] Vitamin B12 See Comment [phone] Comment: Unable to perform testing due to: hemolysis. If testing still needed, please re-order and contact the patient to return for testing. Testing performed by: [address] [address] Blood 01/30/2025 1:01 PM CDT 01/30/2025 4:14 PM CDT Andre Novoa MD LAB BLOOD ORDERABLES Fi nal Result [address] [employer] [place], [place] [id number] from Last 3 Months Insurance [facility] [employer] [place] [employer] [place] Care Teams Job Change Crew Member Relationship Specialty Start Date End Date Jacki Medel NP [address] [place] [address] [address] [place] [address] PCP - General Nurse Practitioner 02/01/24 Andre Novoa MD [address] [place] [address] [place] [id number] Medical Oncologist/Relay Associate Hematology and Oncology 02/01/24
--- OUTSIDE RECORDS SUMMARY | 2025-01-31 08:55 | XMS_ITS | Data Portability ---
Author Organization [place] - [facility] [place], Main Office Address [address] [place] [address] Assessment No assessment recorded. Plan of Treatment Reminders Order Date Submit Date Provider Last Modified By Organization Details Last Modified Time Details Appointments None recorded. Lab None recorded. Referral psychiatris t referral 2022 023 [email or web address] [place], [address] [facility], [address], [place], [address], 3 09:53:28 Procedures None recorded. Surgeries None recorded. Imaging None recorded. Medication Orders dextroamphe tamine-amph etamine 10 mg tablet 2023 024 [facility] #[id number], [address] , [place], [address], 4 08:57:53 dextroamphe tamine-amph etamine 10 mg tablet 2022 023 [id number] [address], [place], [address], 3 08:17:55 cyanocobala min (vit B-12) 1,000 mcg/mL injection solution 2022 023 [facility], [address], [place], [address], 3 10:21:52 spironolact one 50 mg tablet 2022 023 [facility], [address], [place], [address], 3 10:17:06 metformin ER 500 mg tablet,exte nded release 24 hr 2022 023 [facility], [address], [place], [address], 3 10:17:07 Synthroid 100 mcg tablet 2022 023 [facility], [address], [place], [address], 3 10:17:08 fluoxetine 20 mg capsule 2022 023 [facility], [address], [place], [address], 3 08:12:57 Patient TargetsNo targets recorded. Patient InstructionsNo instructions recorded. Reason for Referral Psychiatrist Referral for De pressive disorder Referring Physician: Kelsy Khan, Family Medicine, Encounter Date: 03/17/2023 Results Created Date Observation Date Name Description Value Unit Range Abnormal Flag Note LastModifiedBy Organization Detail LastModifiedTime 03/04/2003/05/2023 IRON AND TOTAL IRON DANIEL NG CAPAC ITY iron, total 73 mcg/d L 40-190 normal Not Available [facility] [address] [address] [place], [address], 03/05/2023 04:25:57 03/04/2003/05/2023 IRON AND TOTAL IRON DANIEL NG CAPAC ITY iron binding capacity 376 mcg/d L_(ca lc) 250-45 0 normal Not Available [facility] [address] [address] [place], [address], 03/05/2023 04:25:57 03/04/20 23 03/05/2023 IRON AND TOTAL IRON DANIEL NG CAPAC ITY % saturation 19 %_(ca lc) 16-45 normal Not Available [address], [address], 03/05/2023 04:25:57 03/04/2003/05/2023 CBC (INCL UDES DIFF/ PLT) white blood cell count 7.2 thous and/u L 3.8-10 .8 normal Not Available [address], [address], 03/05/2023 04:25:59 03/04/20 23 03/05/2023 CBC (INCL UDES DIFF/ PLT) red blood cell count 4.42 priscilla on/uL 3.80-5 .10 normal Not Available [address], [address], 03/05/2023 04:25:59 03/04/2003/05/2023 CBC (INCL UDES DIFF/ PLT) hemoglobin 13.0 g/dL 11.7-1 5.5 normal Not Available [address], [address], 03/05/2023 04:25:59 03/04/20 23 03/05/2023 CBC (INCL UDES DIFF/ PLT) hematocrit 39.1 % 35.0-4 5.0 normal Not Available [address], [address], 03/05/2023 04:25:59 03/04/2003/05/2023 CBC (INCL UDES DIFF/ PLT) MCV 88.5 fL 80.0-1 00.0 normal Not Available [address], [address], 03/05/2023 04:25:59 03/04/20 23 03/05/2023 CBC (INCL UDES DIFF/ PLT) MCH 29.4 pg 27.0-3 3.0 normal Not Available [facility] [address], [address], 03/05/2023 04:25:59 03/04/2003/05/2023 CBC (INCL UDES DIFF/ PLT) MCHC 33.2 g/dL 32.0-3 6.0 normal Not Available [address], [address], 03/05/2023 04:25:59 03/04/20 23 03/05/2023 CBC (INCL UDES DIFF/ PLT) RDW 12.3 % 11.0-1 5.0 normal Not Available [address], [address], 03/05/2023 04:25:59 03/04/20 23 03/05/2023 CBC (INCL UDES DIFF/ PLT) platelet count 297 thous and/u L 140-40 0 normal Not Available [address], [address], 03/05/2023 04:25:59 03/04/20 23 03/05/2023 CBC (INCL UDES DIFF/ PLT) MPV 9.9 fL 7.5-12 .5 normal Not Available [address], [address], 03/05/2023 04:25:59 03/04/2003/05/2023 CBC (INCL UDES DIFF/ PLT) absolute neutrophils 3665 cells /uL 1500-7 800 normal Not Available [facility] [address], [address], 03/05/2023 04:25:59 03/04/2003/05/2023 CBC (INCL UDES DIFF/ PLT) absolute lymphocytes 2837 cells /uL 850-39 00 normal Not Available [facility] [address], [address], 03/05/2023 04:25:59 03/04/20 23 03/05/2023 CBC (INCL UDES DIFF/ PLT) absolute monocytes 418 cells /uL 200-95 0 normal Not Available [address], [address], 03/05/2023 04:25:59 03/04/20 23 03/05/2023 CBC (INCL UDES DIFF/ PLT) absolute eosinophils 252 cells /uL 15-500 normal Not Available [facility] [address], [address], 03/05/2023 04:25:59 03/04/20 23 03/05/2023 CBC (INCL UDES DIFF/ PLT) absolute basophils 29 cells /uL 0-200 normal Not Available [facility] [address], [address], 03/05/2023 04:25:59 03/04/20 23 03/05/2023 CBC (INCL UDES DIFF/ PLT) neutrophils 50.9 % normal Not Available [facility] [address], [address], 03/05/2023 04:25:59 03/04/20 23 03/05/2023 CBC (INCL UDES DIFF/ PLT) lymphocytes 39.4 % normal Not Available [facility] [address], [address], 03/05/2023 04:25:59 03/04/20 23 03/05/2023 CBC (INCL UDES DIFF/ PLT) monocytes 5.8 % normal Not Available [facility] [address], [address], 03/05/2023 04:25:59 03/04/20 23 03/05/2023 CBC (INCL UDES DIFF/ PLT) eosinophils 3.5 % normal Not Available [facility] [address], [address], 03/05/2023 04:25:59 08/04/03/05/2023 CBC (INCL UDES DIFF/ PLT) basophils 0.4 % normal Not Available [address], [address], 03/05/2023 04:25:59 03/04/20 23 03/05/2023 DUC TIN ferritin 62 NG/mL 16-154 normal Not Available [address], [address], 03/05/2023 04:25:59 03/04/2003/10/2023 COMPR EHENS RITCHIE METAB OLIC PANEL glucose 94 mg/dL 65-99 normal Fasti ng refer ence inter yoselyn Not Available [address], [address], 03/10/2023 17:39:13 03/04/20 23 03/10/2023 COMPR EHENS RITCHIE METAB OLIC PANEL urea nitrogen (BUN) 13 mg/dL 7-25 normal Not Available [address], [address], 03/10/2023 17:39:13 03/04/20 23 03/10/2023 COMPR EHENS RITCHIE METAB OLIC PANEL creatinine 0.59 mg/dL 0.50-0 .97 normal Not Available [address], [address], 03/10/2023 17:39:13 03/04/20 23 03/10/2023 COMPR EHENS RITCHIE METAB OLIC PANEL eGFR 119 mL/mi n/1.7 3m2 > or = 60 normal Not Available [address], [address], 03/10/2023 17:39:13 03/04/20 23 03/10/2023 COMPR EHENS RITCHIE METAB OLIC PANEL BUN/creatini ne ratio SEE NOTE: (calc ) 6-22 Not Repor nemo: BUN and Creat inine are withi n refer ence range . Not Available [address], [address], 03/10/2023 17:39:13 03/04/2003/10/2023 COMPR EHENS RITCHIE METAB OLIC PANEL sodium 139 mmol/ L 135-14 6 normal Not Available [address], [address], 03/10/2023 17:39:13 03/04/20 23 03/10/2023 COMPR EHENS RITCHIE METAB OLIC PANEL potassium 4.2 mmol/ L 3.5-5. 3 normal Not Available [address], [address], 03/10/2023 17:39:13 03/04/2003/10/2023 COMPR EHENS RITCHIE METAB OLIC PANEL chloride 103 mmol/ L 98-110 normal Not Available [address], [address], 03/10/2023 17:39:13 03/04/20 23 03/10/2023 COMPR EHENS RITCHIE METAB OLIC PANEL carbon dioxide 26 mmol/ L 20-32 normal Not Available [address], [address], 03/10/2023 17:39:13 03/04/20 23 03/10/2023 COMPR EHENS RITCHIE METAB OLIC PANEL calcium 9.5 mg/dL 8.6-10 .2 normal Not Available [address], [address], 03/10/2023 17:39:13 03/04/2003/10/2023 COMPR EHENS RITCHIE METAB OLIC PANEL protein, total 6.8 g/dL 6.1-8. 1 normal Not Available [address], [address], 03/10/2023 17:39:13 03/04/20 23 03/10/2023 COMPR EHENS RITCHIE METAB OLIC PANEL albumin 4.5 g/dL 3.6-5. 1 normal Not Available [address], [address], 03/10/2023 17:39:13 03/04/20 23 03/10/2023 COMPR EHENS RITCHIE METAB OLIC PANEL globulin 2.3 g/dL_ (calc ) 1.9-3. 7 normal Not Available [address], [address], 03/10/2023 17:39:13 03/04/20 23 03/10/2023 COMPR EHENS RITCHIE METAB OLIC PANEL albumin/glob ulin ratio 2.0 (calc ) 1.0-2. 5 normal Not Available [address], [address], 03/10/2023 17:39:13 03/04/20 23 03/10/2023 COMPR EHENS RITCHIE METAB OLIC PANEL bilirubin, total 0.3 mg/dL 0.2-1. 2 normal Not Available [address], [address], 03/10/2023 17:39:13 03/04/20 23 03/10/2023 COMPR EHENS RITCHIE METAB OLIC PANEL alkaline phosphatase 53 U/L 31-125 normal Not Available [address], [address], 03/10/2023 17:39:13 03/04/20 23 03/10/2023 COMPR EHENS RITCHIE METAB OLIC PANEL AST 15 U/L 10-30 normal Not Available [address], [address], 03/10/2023 17:39:13 03/04/20 23 03/10/2023 COMPR EHENS RITCHIE METAB OLIC PANEL ALT 22 U/L 6-29 normal Not Available [address] [place], [address], 03/10/2023 17:39:13 03/04/2003/10/2023 DEXAM ETHAS ONE dexamethason e 52 NG/dL Refer ence Range s for Dexam ethas one: Basel ine: Less than 20 ng/dL 1 mg dexam ethas one overn ight: 180-5 50 ng/dL (8:00 -10:0 0 AM) This test was devel oped and its naomy tical perfo rmanc e jackelin cteri stics have been deter mined by [facility] Maximiliano Strongi matthew Sanz . It has not been clear ed or appro moe by FDA. This assay has been valid ated pursu ant to the CLIA regul ation s and is used for clini joaquina purpo ses. Not Available [facility] [address] [address] [place], [address], 03/10/2023 17:39:13 03/04/2003/10/2023 INSUL IN insulin 13.2 uIU/m L normal Refer ence Range < or = 18.4 Risk: Optim al < or = 18.4 Moder ate NA High >18.4 Adult cardi ovasc ular event risk categ ory cut point s (opti mal, moder ate, high) are based on Insul in Refer ence Inter yoselyn studi es perfo rmed at [facility] in 2021. Not Available [facility] [address] [place], [address], 03/10/2023 17:39:14 03/04/2003/10/2023 CORTI GIANNA, A.M. cortisol, A.M. 5.1 mcg/d L normal Refer ence Range 8 a.m. (7-9 a.m.) Speci men: 4.0-2 2.0 Not Available [facility] [address] [address] [place], [address], 03/10/2023 17:39:14 03/04/2003/10/2023 VITAM IN B12/F OLATE , SERUM PANEL vitamin B12 780 pg/mL 200-11 00 normal Not Available [address], [address], 03/10/2023 17:39:15 03/04/20 23 03/10/2023 VITAM IN B12/F OLATE , SERUM PANEL folate, serum 8.7 NG/mL normal Refer ence Range Low: <3.4 Borde rline : 3.4-5 .4 Gayle l: >5.4 Not Available [address], [address], 03/10/2023 17:39:15 03/04/2003/10/2023 T3, FREE T3, free 2.6 pg/mL 2.3-4. 2 normal Not Available [address], [address], 03/10/2023 17:39:16 03/04/2003/10/2023 TSH+F REE T4 TSH 0.75 mIU/L normal Refer ence Range > or = 20 Years 0.40- 4.50 Pregn nithya Range s First trime ster 0.26- 2.66 Secon d trime ster 0.55- 2.73 Third trime ster 0.43- 2.91 Not Available [address], [address], 03/10/2023 17:39:16 03/04/2003/10/2023 TSH+F REE T4 T4, free 0.9 NG/dL 0.8-1. 8 normal Not Available [address], [address], 03/10/2023 17:39:16 03/04/2003/10/2023 HEMOG LOBIN A1C hemoglobin A1C 5.3 %_of_ total _HGB <5.7 normal For the purpo se of scree neva for the prese nce of diabe duncan: <5.7% Consi stent with the absen ce of diabe duncan 5.7-6 .4% Consi stent with incre ased risk for diabe duncan (pred iabet es) > or =6.5% Consi stent with diabe duncan This assay resul t is consi stent with a decre ased risk of diabe duncan. Curre ntly, no conse nsus exist s wyatt spencer use of hemog lobin A1c for diagn osis of diabe duncan in child jazzy. Accor ding to Ameri can [place] dun[place] Assoc iatio n (ADA) guide lines , hemog lobin A1c <7.0% repre sents optim al contr ol in non-p regna nt diabe tic patie nts. Diffe rent metri cs may apply to speci fic patie nt popul ation s. [facility]ds of Medic al Care in [place] dun[place](A DA). Not Available [facility] [address] [place], [address], 03/10/2023 17:39:17 05/21/20 24 05/18/2024 MRI, brain + brain stem, w/wo contr ast No observ ation record ed. [email or web address] [facility] [address], [place], [address], 05/21/2024 17:05:42 Result Notes None recorded. Problems Name Problem SNOMED Code Status Onset Date Resolution Date Notes Provider Name and Address Organization Details Recorded Time Polycystic ovary syndrome 987610804 Active 2021 Not Available [facility] 3 00:27:16 Depressive disorder 54570996 Active 2021 Not Available [facility] 3 00:27:16 Neuropathy 152230119 Active 2021 Not Available [facility] 3 00:27:16 Attention deficit hyperactivity disorder 597238611 Active 2021 Not Available [facility] 3 00:27:16 Hypothyroidis m 33780592 Active 2021 Not Available [facility] 3 00:27:16 Painless rectal bleeding 624822903 Active Not Available [facility] 3 00:27:16 Anxiety 55159565 Active 2021 Not Available [facility] 3 00:27:16 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 3 17:19:46 Vitamin B12 deficiency (non anemic) 43115568 Active 2022 Cady Ghotra [facility], [facility] 3 12:03:11 Acute sinusitis 27773110 Active 2023 EVAN Logan [address] [facility] [address], [place], [address] , [facility] 4 15:44:32 Problem Notes Documentation Provider Name and Address Organization Details Recorded Time Consult Note : [facility] [address], [facility] [address]ESHCNO, Amber (id #[id number], : 1985) Documents sent via fax will include the following message: This fax may contain sensitive and confidential personal health information that is being sent for the sole use of the intended recipient. Unintended recipients are directed to securely destroy any materials received. You are hereby notified that the unauthorized disclosure or other unlawful use of this fax or any personal health information is prohibited. To the extent patient information contained in this fax is subject to 42 CFR Part 2, this regulation prohibits unauthorized disclosure of these records. If you received this fax in error, please visit [email or web address] to notify the sender and confirm that the information will be destroyed. If you do not have internet access, please call to notify the sender and confirm that the information will be destroyed. Thank you for your attention and cooperation. [ID:[id number]][facility] [address] [place] [address] , Date: 03/29/2023RE: Julianna Martinez, : 1985, PT ID #[id number] L Kalaher MD, I would like to thank you for referring Julianna Martinez to our practice for consultation and evaluation of FU ON LABS , on 03/29/2023. I have enclosed a copy of the office evaluation for your records. Once again, thank you for allowing me to participate in the care of this patient. Sincerely, Electronically Signed by: GERMAN DEE MD Encounter Reason/Date FU ON LABS 03/29/2023 - 09:00AM - [facility] Bryanna Bradley Problems:Problems not reviewed (last reviewed 03/17/2023) Hypothyroidism - Onset: 01/06/2022 Vitamin B12 deficiency (non anemic) - Onset: 11/19/2022 Iron deficiency anemia - Onset: 11/04/2021 Anxiety - Onset: 10/15/2021 Depressive disorder - Onset: 10/15/2021 Attention deficit hyperactivity disorder - Onset: 10/15/2021 Trigeminal nerve disorder - Onset: 10/15/2021 Neuropathy - Onset: 10/15/2021 Hemorrhoids - Onset: 10/14/2022 Painless rectal bleeding Prediabetes - Onset: 10/18/2022 Polycystic ovary syndrome - Onset: 10/15/2021 Allergies: Reviewed Allergies CODEINE: Anaphylaxis Medications: Reviewed Medications NameDate Source BD Insulin Syringe Ultra-Fine 1 mL 31 gauge x 5/16USE DIRECTED.01/17/23 filled surescripts cyanocobalamin (vit B-12) 1,000 mcg/mL injection solutionInject 1 mL every week by subcutaneous route in the morning for 90 days.03/29/23 prescribed German Dee MD dextroamphetamine-amphetamine 5 mg tabletTAKE 1 TABLET BY MOUTH ONCE DAILY IN THE MORNING THEN 1 BY MOUTH IN EARLY NCFNGOTTG32/16/23 prescribed Kelsy Khan MD ergocalciferol (vitamin D2) 1,250 mcg (50,000 unit) capsuleTAKE 1 CAPSULE BY MOUTH ONE TIME PER WEEK IN THE USXAFOO85/12/23 filled surescripts FLUoxetine 20 mg capsuleTAKE 1 CAPSULE BY MOUTH ONCE DAILY WITH 40 MG CAPSULE DAILY FOR TOTAL OF 60 MG A DAY03/17/23 filled surescripts FLUoxetine 40 mg capsuleTAKE 1 CAPSULE BY MOUTH EVERY DAY02/06/23 filled surescripts folic acid 1 mg tabletTAKE 1 TABLET BY MOUTH EVERY DAY IN THE ONBVRNP36/14/23 filled surescripts hydrocortisone 2.5 % topical cream with perineal applicatorAPPLY TOPICALLY A THIN LAYER TO AFFECTED AREA TWICE A DAY TO 4 TIMES A DAY ODQXMD70/16/23 filled surescripts metFORMIN ER 500 mg tablet,extended release 24 hrTake 1 tablet(s) every day by oral route at dinner for 90 days.03/29/23 prescribed German Dee MD spironolactone 50 mg tabletTAKE 2 TABLETS EVERY DAY BY ORAL ROUTE IN THE MORNING FOR 90 DAYS.03/29/23 prescribed German Dee MD Synthroid 100 mcg tabletTake 1 tablet(s) every day by oral route in the morning for 90 days.03/29/23 prescribed German Dee MD Unithroid 75 mcg tabletTAKE 1 TABLET BY MOUTH EVERY DAY IN THE QCERVTM87/21/23 filled surescripts Vitamin D3 125 mcg (5,000 unit) tabletTAKE 2 TABLETS EVERY DAY BY ORAL ROUTE AT DINNER FOR 90 DAYS.02/06/23 filled surescripts iron mvi Family History:Family History not reviewed (last reviewed 12/14/2022) Maternal Grandmother - Malignant neoplasm of skin - Malignant tumor of ovary Maternal Grandfather - Malignant tumor of pancreas Paternal Grandmother - Cerebrovascular accident - Peripheral vascular disease Paternal Grandfather - Myocardial infarction - in his 50s Father - Heart disease Mother - Sj gren's syndrome - Rheumatoid arthritis - Essential hypertension - Malignant tumor of esophagus ( age: 70) Sister - Asthma Brother - Asthma Brother - Multiple sclerosis breast cancer-cousin Social History:Social History not reviewed (last reviewed 12/14/2022) Substance UseDo you or have you ever smoked tobacco?: Never smokerDo you or have you ever used any other forms of tobacco or nicotine?: NoWhat was the date of your most recent tobacco screening?: 10/15/2021Has tobacco cessation counseling been provided?: NoWhat is your level of alcohol consumption?: NoneDo you use any illicit or recreational drugs?: YesWhich illicit or recreational drugs have you used?: CBD gummies (Notes: once or twice per week)Have you used IV drugs?: NoWhat is your level of caffeine consumption?: NonePublic Health and TravelHave you recently traveled abroad?: NoIn the 14 days before symptom onset, have you had close contact with a laboratory-confirmed COVID-19 while that case was ill?: NoIn the 14 days before symptom onset, have you had close contact with a person who is under investigation for COVID-19 while that person was ill?: NoMarriage and SexualityWhat is your relationship status?: MarriedDiet and ExerciseWhat type of diet are you following?: RegularWhat is your exercise level?: OccasionalGender Identity and LGBTQ IdentityGender identity: Identifies as FemaleAssigned sex at : FemaleLives with and 3 daughters [facility] Surgical HistorySurgical History not reviewed (last reviewed 12/14/2022) Hysterectomy - 03/01/2022 - pt had endometrial cancer Colonoscopy - 11/30/2021 Endoscopy - 11/30/2021 Tonsillectomy 2002 Cholecystectomy 07/2009 Gastric bypass 04/2008 Additional HistoryNone recordedHistory of Present Illness:37 yo female comes in for follow up in management of hypothyroidism, impaired fasting glucose last seen in Sep at that time we continued metformin for insulin sensitization- we trialed wegovy for weight management. we continued synthroid 75 mcg daily for thyroid She had been on ozempic for close to 1 year and she lost up to 30 pounds and maintaining. As far as her diet she doesn't eat the best. She will either not eat for most of the day and eat at night or she snacks all day. She will snack on turkey sticks and cheese and fruit/nut/cheese packs. She has some fatigue and low energy in the morning/and afternoon. She has not had a sleep study. She doesn't snore and doesn't gasp for breath. labs from 03/04/23:H/H .1iron sat 19%a1c 5.3%TSH of 0.75 uIU/mlFT4 of 0.9 ng/dLFT3 of 2.6 pg/mlB12/folate normaldexa level low so cortisol not reliableinsulin 13.2 uU/mlglucose 94 mg/dLCr normalLFT normal Review of Systems:ROS as noted in the HPIPhysical ExamConstitutional:General Appearance: not anxious/nervous, no sweating, andobese. Level of Distress: no acute distress. Eyes:Lids and Conjunctivae: no discharge, pallor, lid lag, or periorbital edema and non-injected. Neck:Neck: supple, trachea midline, no masses, and full range of motion. Thyroid: no enlargement or nodules and non-tender. Neck vessels: no carotid bruits or thyroid bruits. Lymph Nodes: no anterior cervical LAD, posterior cervical LAD, submandibular LAD, submental LAD, preauricular LAD, or supraclavicular LAD. Cardiovascular:Apical Impulse: not displaced. Heart Auscultation: normal S1 and S2; no murmurs, rubs, or gallops; and regular rate and rhythm. Lungs:Auscultation: no wheezing, rales/crackles, or rhonchi and breath sounds normal, good air movement, and clear to auscultation. Psychiatric:Mental Status: normal mood and affect, no diffuse anxiety or paranoid ideations, and active and alert.Procedure DocumentationNone recordedAssessment/Plan1. Hypothyroidism-FT4 low normal range- will uptitrate synthroid to 100 mcg daily. She was reminded to take her tirosint on empty stomach with glass of water and wait one hour to eat or have her coffee in morning and up to 4 hours if ever taking any heartburn or reflux medications to help optimize absorption. Discussed paleo like diet with restriction of GMOs to help with energy and to optimize absorption of vitamins and minerals and reduce inflammation.E03.9: Hypothyroidism, unspecified Synthroid 100 mcg tablet - Take 1 tablet(s) every day by oral route in the morning for 90 days. Qty: (90) tablet Refills: 1 BASIA: Y Pharmacy: [id number] 2. Polycystic ovary syndrome-Insulin and testosterone levels in normal range with A1C of 5.3%- continue on metformin with dinner along with spironolactone 100 mg daily as patient tolerating well..Recommended up to 120 grams of carbs a day split into 6 small 15-20 gram carb meals in addition to up to 120 grams of protein daily split into 15-20 grams for 5-6 smaller meals. The recommended diet should be one of which she can incorporate on a daily basis that will not modulate her lifestyle - discussed a diet of increased fiber; decreased refined carbohydrates, trans fats, and saturated fats with focus on monounsaturated fats such as unprocessed chicken, turkey, nuts (excluding peanuts) and beans. Recommended [facility] protein shakes / program as this doesn't contain artificial sweetners and will all patient to meet daily protein / caloric demands as patient doesn't eat consistently through the day and eats a large dinner and inconsistent in weight loss. Insurance will not cover GLP1 hormone therapies.E28.2: Polycystic ovarian syndrome spironolactone 50 mg tablet - TAKE 2 TABLETS EVERY DAY BY ORAL ROUTE IN THE MORNING FOR 90 DAYS. Qty: (180) tablet Refills: 1 Pharmacy: [facility][id number] metformin ER 500 mg tablet,extended release 24 hr - Take 1 tablet(s) every day by oral route at dinner for 90 days. Qty: (90) tablet Refills: 1 Pharmacy: [id number] 3. Vitamin B12 deficiency (non anemic)-continue on B12 injections. Spent up to 25 minutes preparing to see the patient (eg, review of tests), obtaining and/or reviewing separately obtained history, performing a medically appropriate examination and evaluation, counseling and educating the patient, ordering medications, tests, along with documenting clinical information in the electronic health record, independently interpreting results and communicating results to the patient. Patient can be followed by PCP - she/he is aware of my resignation and last day of May 13. 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 All questions /concerns answered and refills necessary at visit today.E53.8: Deficiency of other specified B group vitamins cyanocobalamin (vit B-12) 1,000 mcg/mL injection solution - Inject 1 mL every week by subcutaneous route in the morning for 90 days. Qty: (13) mL Refills: 2 Pharmacy: [id number] INSULIN SYRINGE U-100 WITH NEEDLE 1 ML 31 GAUGE X 5/16 - inject B12 SQ once weekly x 90 days Qty: 13 Units Refills: 3 Supplier: [facility][id number] Return to Office Kelsy Khan MD for Follow Up 15 at [facility] on 04/28/2023 at 07:30 AM Shasta Wylie RN [facility], [facility] 03/29/2023 11:56:41 Procedures Surgical History Date Name Laterality Status Provider Name and Address Organization Details Recorded Time 2 Hysterectomy completed Not Available [facility] 023 00:26:11 2 Endoscopy completed Not Available [facility] 3 00:26:11 2 Colonoscopy completed Not Available [facility] 10/01/19 23 00:26:11 Imaging Results None recorded. Procedure Notes None recorded. Medical Equipment None Reported. Allergies Allergen ID Allergen Name Allergen Category Reaction Reaction Severity Criticality Documentation Date Start Date Code Code System Note Provider Name and Address Organization Details Recorded Time 29766 codeine medicatio n anaphylax is Not available Not available 09/30/2022 2670 RxNorm Not Available [facility] 3 00:28:33 Medications Name Sig Start Date Stop Date Status Note LastModified by Organization Details LastModified Time fluoxetine 40 mg capsule TAKE 1 CAPSULE BY MOUTH EVERY DAY active Not Available Not Available No t Available amoxicillin 500 mg capsule TAKE 1 CAPSULE BY MOUTH THREE TIMES A DAY 10/15 completed Not Available Not Available Not Available medroxyprog esterone 10 mg tablet TAKE 1 TABLET BY MOUTH EVERY DAY FOR 30 DAYS 03/29 completed Not Available Not Available Not Available azithromyci n 250 mg tablet TAKE 2 TABLETS (500 MG) BY ORAL ROUTE ONCE DAILY FOR 1 DAY THEN 1 TABLET (250 MG) BY ORAL ROUTE ONCE DAILY FOR 4 DAYS 09/13 completed Not Available Not Available Not Available dextroamphe tamine-amph etamine 10 mg tablet TAKE 1 TABLET BY MOUTH TWICE A DAY active Not Available Not Available No t Available Synthroid 100 mcg tablet TAKE 1 TABLET BY MOUTH EVERY DAY IN THE MORNING active Not Available Not Available No t Available sertraline 100 mg tablet TAKE 2 TABLETS BY MOUTH EVERY DAY 10/15 completed Not Available Not Available Not Available amoxicillin 500 mg tablet TAKE 1 TABLET BY MOUTH 3 TIMES A DAY FOR 10 DAYS 10/15 completed Not Available Not Available Not Available hydrocortis one 2.5 % topical cream with perineal applicator APPLY TOPICALLY A THIN LAYER TO AFFECTED AREA TWICE A DAY TO 4 TIMES A DAY NEEDED active Not Available Not Available No t Available amoxicillin 875 mg tablet TAKE 1 TABLET BY MOUTH EVERY 12 HOURS FOR 7 DAYS 05/03 completed Not Available Not Available Not Available alprazolam 0.25 mg tablet TAKE 1 TABLET BY MOUTH TWICE A DAY NEEDED FOR ANXIETY 10/15 completed Not Available Not Available Not Available dexamethaso ne 1 mg tablet TAKE DEXA TABLET AT 10 PM NIGHT BEFORE 8 AM CORTISOL 03/17 completed Not Available Not Available Not Available Unithroid 50 mcg tablet Take 1 tablet every day by oral route in the morning for 90 days. 08/05 completed Not Available Not Available Not Available cyanocobala min (vit B-12) 1,000 mcg/mL injection solution 1 ml sc qmonth 2023 active Not Available Not Available Not Avai lable triamcinolo ne acetonide 0.1 % topical ointment APPLY 3 TIMES A DAY UNTIL DIRECTED TO STOP 10/15 completed Not Available Not Available Not Available progesteron e micronized 200 mg capsule TAKE 1 CAPSULE BY MOUTH EVERYDAY AT BEDTIME 11/04 completed Not Available Not Available Not Available fluoxetine 10 mg capsule TAKE 1 CAPSULE BY MOUTH ONCE DAILY WITH 20 MG CAPSULE FOR TOTAL OF 30 MG A DAY active Not Available Not Available No t Available folic acid 1 mg tablet TAKE 1 TABLET BY MOUTH EVERY DAY IN THE MORNING active Not Available Not Available No t Available Unithroid 25 mcg tablet TAKE 1 TABLET BY MOUTH EVERY DAY FOR 30 DAYS 03/01 completed Not Available Not Available Not Available ergocalcife rol (vitamin D2) 1,250 mcg (50,000 unit) capsule active Not Available Not Available Not Available Anusol-HC 25 mg rectal suppository Insert 1 supposito ry twice a day by rectal route for 14 days. 10/15 completed Not Available Not Available Not Available Unithroid 75 mcg tablet TAKE 1 TABLET BY MOUTH EVERY DAY IN THE MORNING active Not Available Not Available No t Available fluoxetine 20 mg capsule TAKE 1 CAPSULE BY MOUTH ONCE DAILY WITH 40 MG CAPSULE DAILY FOR TOTAL OF 60 MG A DAY active Not Available Not Available No t Available metformin ER 500 mg tablet,exte nded release 24 hr TAKE 1 TABLET BY MOUTH EVERY DAY AT DINNER FOR 90 DAYS active Not Available Not Available No t Available Sudafed 30 mg tablet Take 2 tablets every 4-6 hours by oral route. 2023 active Not Available Not Available Not Avai lable dextroamphe tamine-amph etamine 5 mg tablet TAKE 1 TABLET BY MOUTH ONCE DAILY IN THE MORNING THEN 1 TABLET IN EARLY AFTERNOON active Not Available Not Available No t Available spironolact one 50 mg tablet TAKE 2 TABLETS EVERY DAY BY ORAL ROUTE IN THE MORNING FOR 90 DAYS. active Not Available Not Available No t Available oxycodone 5 mg tablet 05/28 completed Not Available Not Available Not Available Vitamin D3 125 mcg (5,000 unit) tablet TAKE 2 TABLETS EVERY DAY BY ORAL ROUTE AT DINNER FOR 90 DAYS. 2022 active Not Available Not Available Not Avai lable BD Insulin Syringe Ultra-Fine 1 mL 31 gauge x 5/16 USE DIRECTED. active Not Available Not Available No t Available Ozempic 0.25 mg or 0.5 mg (2 mg/1.5 mL) subcutaneou s pen injector INJECT 0.5 MG EVERY WEEK BY SUBCUTANE OUS ROUTE AT DINNER FOR 90 DAYS. 12/30 completed Not Available Not Available Not Available Ozempic 1 mg/dose (4 mg/3 mL) subcutaneou s pen injector INJECT 1 MG SUBCUTANE OUSLY ONCE A WEEK 90 DAYS active Not Available Not Available No t Available Wegovy 1 mg/0.5 mL subcutaneou s pen injector 01/04 completed Not Available Not Available Not Available Ozempic 0.25 mg or 0.5 mg (2 mg/3 mL) subcutaneou s pen injector INJECT 0.5MG UNDER THE SKIN EVERY WEEK FOR 30 DAYS. 12/12 completed Not Available Not Available Not Available Vitals Date Recorded Body height Body mass index (BMI) Body weight Body temperature Heart rate Oxygen saturation Oxygen saturation in Arterial blood by Pulse oximetry Systolic blood pressure Diastolic blood pressure Provider Name and Address Organization Details Last Updated DateTime 4 172.72 cm 59.9 kg/m2 996518. 39 g 97.3 [degF] 87 /min 98 % 98 % 122 mm[Hg] 76 mm[Hg] SRIKANTH Dalal [facility] [employer] [facility] 4 08:49:33 Date Recorded Body height Body mass index (BMI) Body weight Body temperature Heart rate Oxygen saturation Oxygen saturation in Arterial blood by Pulse oximetry Systolic blood pressure Diastolic blood pressure Provider Name and Address Organization Details Last Updated DateTime 4 172.72 cm 58.8 kg/m2 431957. 25 g 97.9 [degF] 83 /min 97 % 97 % 132 mm[Hg] 80 mm[Hg] SRIKANTH Dalal [facility] [employer] [facility] 4 08:42:18 Date Recorded Body height Body mass index (BMI) Body weight Body temperature Heart rate Oxygen saturation Oxygen saturation in Arterial blood by Pulse oximetry Systolic blood pressure Diastolic blood pressure Provider Name and Address Organization Details Last Updated DateTime 3 172.72 cm 56.1 kg/m2 259517. 58 g 97.3 [degF] 79 /min 98 % 98 % 138 mm[Hg] 84 mm[Hg] Shasta Wylie RN [facility] [employer] [facility] 3 08:01:33 Date Recorded Body height Body mass index (BMI) Body weight Body temperature Respiratory rate Heart rate Systolic blood pressure Diastolic blood pressure Provider Name and Address Organization Details Last Updated DateTime 3 172.72 cm 56.2 kg/m2 624494. 02 g 97.8 [degF] 14 /min 63 /min 106 mm[Hg] 69 mm[Hg] Bree Jones RN [facility] [employer] [facility] 3 10:03:22 Date Recorded Body height Body mass index (BMI) Body weight Body temperature Heart rate Oxygen saturation Oxygen saturation in Arterial blood by Pulse oximetry Systolic blood pressure Diastolic blood pressure Provider Name and Address Organization Details Last Updated DateTime 3 172.72 cm 58.5 kg/m2 894756. 06 g 98.1 [degF] 68 /min 98 % 98 % 118 mm[Hg] 82 mm[Hg] Judy Mart paul, [facility] [employer] [facility] 08:05:23 Social History Question Answer Notes LastModified by Organizat ion Details LastModified Time Tobacco Smoking Status Never Smoker Cady marrufo, [facility] [employer] [facility] 03/29/2023 09:58:43 Do You Have An Advance Directive? No [id number] Information not available 09/30/2022 What Is Your Level Of Caffeine Consumption? None [id number] Information not available 09/30/2022 In The 14 Days Before Symptom Onset, Have You Had Close Contact With A Laboratory-confir med COVID-19 While That Case Was Ill? No Information not available 03/29/2023 In The 14 Days Before Symptom Onset, Have You Had Close Contact With A Person Who Is Under Investigation For COVID-19 While That Person Was Ill? No Information not available 03/29/2023 What Type Of Diet Are You Following? REGULAR [id number] Information not available 09/30/2022 Which Illicit Or Recreational Drugs Have You Used? CBD Gummies Once Or Twice Per Week Information not available 03/29/2023 What Was The Date Of Your Most Recent Tobacco Screening? 10/15/2021 Information not available 03/29/2023 What Is Your Relationship Status? [id number] Information not available 09/30/2022 Has Tobacco Cessation Counseling Been Provided? No Information not available 03/29/2023 Have You Recently Traveled Abroad? No Information not available 03/29/2023 Have You Used IV Drugs? No Information not available 03/29/2023 Sex: Female Functional Status Question Answer Note LastModified by Organizat ion Details LastModified Time Do you use any illicit or recreational drugs? Yes Information not available 03/29/2023 Do you or have you ever used any other forms of tobacco or nicotine? No Information not available 03/29/2023 What is your level of alcohol consumption? None [id number] Information not available 09/30/2022 What is your exercise level? Occasional [id number] Information not available 09/30/2022 Mental Status None recorded. Family History Relationship Description Onset Age of this Age Resolved Age Notes LastModified by Organization Details LastModified Time Maternal Grandmother Malignant neoplasm of skin akovach Not available 2022 09:58:42 Maternal Grandmother Malignant neoplasm of ovary akov[place] Not available 2022 09:58:42 Maternal Grandfather Malignant tumor of pancreas akov[place] Not available 2022 09:58:42 Paternal Grandmother Cerebrovascu lar accident akovach Not available 09:58:42 Paternal Grandmother Peripheral vascular disease akov[place] Not available 2022 09:58:42 Paternal Grandfather Myocardial infarction in his 50s [id number] Not available 09/30/2022 00:26:13 Father Heart disease [id number] Not available 09/30/2022 00:26:13 Mother Sj gren's syndrome akovach Not available 2022 09:58:42 Mother Rheumatoid arthritis akovach Not available 2022 09:58:42 Mother Essential hypertension akovach Not available 09:58:42 Mother Malignant tumor of esophagus 70 akovach Not available 2022 09:58:42 Sister Asthma [id number] Not available 09/30/2022 00:26:13 Brother Asthma [id number] Not available 09/30/2022 00:26:13 Brother Multiple sclerosis akovach Not available 2022 09:58:42 Notes:breast cancer-cousin Medical History Condition Response SKIN PROBLEMS Y EYE PROBLEMS Y CANCER: SPECIFY Y HEADACHES/MIGRAINES Y OBESITY Y Gynecological History Statement/Question Response STIs/STDs N Abnormal Pap N Current Control Method None Date of LMP Sexually Active? Y Obstetrics History GPAL:G 0 P 0 0 0 0 Immunizations Vaccine Type Date Status Note Provider Nam e and Address Organization Details Recorded Time Influenza, split virus, quadrivalent, PF 06/01/2022 completed Not Available [employer] 00:28:32 Influenza, split virus, quadrivalent, PF 07/28/2023 completed Judy Winter, ANAND null, [place] [facility] [place] [employer] [facility] 07/28/2023 08:27:07 Past Encounters Encounter ID Performer Location Encounter Start Date Encounter Closed Date Diagnosis/Indication Diagnosis SNOMED-CT Code Diagnosis ICD10 Code Diagnosis Note [id number] Kelsy Khan MD [facility] [address] [place] [address] 10/15/2021 00:00:00 10/20/2021 08:52:17 [id number] _ATHN_MIGR ATION_1 _ATHENA_M IGRATION_ DEFAULT_1 _1 , 11/04/2021 00:00:00 11/04/2021 11:32:14 [id number] German Dee MD [facility] [address] [place] [address] 12/14/2021 00:00:00 12/14/2021 14:51:24 [id number] Kelsy Khan MD [facility] Primary Care [address] [place] [address] 12/14/2021 00:00:00 12/28/2021 21:49:07 [id number] German [facility] [address] [place] [address] 02/26/2022 00:00:00 02/27/2022 11:16:14 [id number] Kelsy Khan MD [facility] Primary Care [address] [place] [address] 03/01/2022 00:00:00 03/01/2022 08:44:47 [id number] German Dee MD [facility] [address] [place] [address] 05/31/2022 00:00:00 05/31/2022 13:54:15 [id number] Kelsy Khan MD [facility] Primary [facility] [address] [place] [address] 06/01/2022 00:00:00 06/08/2022 16:08:47 [id number] Kelsy Khan MD [facility] [address] [facility] [address] [place] [address] 08/11/2022 00:00:00 08/11/2022 09:13:08 [id number] German Dee MD [facility] Endo Bryanna Bradley [address] [place] [address] 09/10/2022 00:00:00 09/10/2022 10:15:06 [id number] Kelsy Khan MD [facility] Primary Care [facility] [address] [facility] 140 [facility] [place] [address] 12/14/2022 07:56:53 12/14/2022 08:28:14 Attention deficit hyperactivity disorder 900524861 F90.9 stablerefi ll givenIL prescripti on monitoring website reviewed Iron defic iency anemia 76494362 D50.9 [id number] Kelsy Khan MD [facility] Care [facility] [address] [facility] [address] [place] [address] 03/17/2023 07:57:10 03/17/2023 08:14:58 Attention deficit hyperactivity disorder 696814642 F90.9 stablerefi ll givenPt understand s this medication has risk for abuse/depe ndence and agrees to take it only as prescribed and to guard from loss/theft no refill needed Depressive disorder 0418 9003 F32.A not in good controlinc rease fluoxetine 60 mg daily (add 20 mg to 40 mg capReviewe d potential med s/e, d/c and be seen if any si/hipsych iatry referral givenf/u in 6 weeks or sooner if needed [id number] German Dee MD [facility] Endo Bryanna Bradley [address] [place] [address] 03/29/2023 09:58:08 03/29/2023 10:20:23 Hypothyroidism 27456780 E03.9 FT4 low normal range- will uptitrate synthroid to 100 mcg daily. She was reminded to take her tirosint on empty stomach with glass of water and wait one hour to eat or have her coffee in morning and up to 4 hours if ever taking any heartburn or reflux medication s to help optimize absorption . Discussed paleo like diet with restrictio n of GMOs to help with energy and to optimize absorption of vitamins and minerals and reduce inflammati on. Polycystic ovary syndrome 203678462 E28.2 Insulin and testostero ne levels in normal range with A1C of 5.3%- continue on metformin with dinner along with spironolac tone 100 mg daily as patient tolerating well..Raulito mmended up to 120 grams of carbs a day split into 6 small 15-20 gram carb meals in addition to up to 120 grams of protein daily split into 15-20 grams for 5-6 smaller meals. The recommende d diet should be one of which she can incorporat e on a daily basis that will not modulate her lifestyle - discussed a diet of increased fiber; decreased refined carbohydra duncan, trans fats, and saturated fats with focus on monounsatu rated fats such as unprocesse d chicken, turkey, nuts (excluding peanuts) and beans. Recommende d [facility] protein shakes / program as this doesn't contain artificial sweetners and will all patient to meet daily protein / caloric demands as patient doesn't eat consistent ly through the day and eats a large dinner and inconsiste nt in weight loss. Insurance will not cover GLP1 hormone therapies. Vitamin B1 2 deficiency (non anemic) 77117934 E53.8 continue on B12 injections . Spent up to 25 minutes preparing to see the patient (eg, review of tests), obtaining and/or reviewing separately obtained history, performing a medically appropriat e examinatio n and evaluation , counseling and educating the patient, ordering medication s, tests, along with documentin g clinical informatio n in the electronic health record, independen tly interpreti ng results and communicat ing results to the patient. Patient can be followed by PCP - she/he is aware of my resignatio n and last day of May 13. If needed his/her PCP can refer patient to another endocrinol ogist in the area. All questions /concerns answered and refills necessary at visit today. [id number] Kelsy Khan MD [facility] Ksenia [address]erson [address] [facility] [address] [facility] [place] [address] 07/28/2023 08:00:20 07/28/2023 08:35:07 Attention deficit hyperactivity disorder 588660939 F90.9 stablerefi ll givenPt understand s this medication has risk for abuse/depe ndence and agrees to take it only as prescribed and to guard from loss/theft no refill needed update 07/28/23: improved focus/conc entrationb ut energy, interest and motivation downcontin ue fluoxetine 60 mg dailyincre ase adderall 10 mg bidf/u in 4 weeks, consider abilify if no improvemen tPt understand s this medication has risk for abuse/depe ndence and agrees to take it only as prescribed and to guard from loss/theft Administra tion of influenza vaccine [id number] Z23 [id number] Kelsy Khan MD [address] [place] [address] 09/13/2023 08:43:00 09/13/2023 08:56:30 Attention deficit hyperactivity disorder 407915866 F90.9 stablerefi givenPt understand s this medication has risk for abuse/depe ndence and agrees to take it only as prescribed and to guard from loss/theft no refill needed update 07/28/23: improved focus/conc entrationb ut energy, interest and motivation downcontin ue fluoxetine 60 mg dailyincre ase adderall 10 mg bidf/u in 4 weeks, consider abilify if no improvemen tPt understand s this medication has risk for abuse/depe ndence and agrees to take it only as prescribed and to guard from loss/theft update 09/13/23: much improvedco ntinue dextroamph etamine/am phetamine 10 mg bidcontinu e fluoxetine 60 mg dailyf/u in 3 months or sooner if needed [id number] Kelsy Khan MD [facility] Care [address] [place] [address] 12/13/2023 08:36:50 12/13/2023 09:49:28 Attention deficit hyperactivity disorder 098482989 F90.9 stablerefi givenPt understand s this medication has risk for abuse/depe ndence and agrees to take it only as prescribed and to guard from loss/theft no refill needed update 07/28/23: improved focus/conc entrationb ut energy, interest and motivation downcontin ue fluoxetine 60 mg dailyincre ase adderall 10 mg bidf/u in 4 weeks, consider abilify if no improvemen tPt understand s this medication has risk for abuse/depe ndence and agrees to take it only as prescribed and to guard from loss/theft update 09/13/23: much improvedco ntinue dextroamph etamine/am phetamine 10 mg bidcontinu e fluoxetine 40 mg dailyf/u in 3 months or sooner if needed update 12/13/23: doing well, no med changes needed Hypothyroidism 77789773 E03.9 sees endocrinol ogpablo Dee Prediabetes 166168332 R7 3.[address] Dee Health Concerns Section Related Observation LastModified by Organization Detai ls LastModified Time None Recorded Concern Status LastModified by Organization Details LastModified Time None Recorded Advance Directives Directive N: Payers Insurance Date Sequence Insurance Name Policy Number Policy Johnson Covered Member ID Johnson Member ID Guarantor Name 12/10/2023 1 [facility] (O) [id number] Holden Juan [id number] [place] Notes Date Note Type Note Provider Name and Address Organization Details Recorded Time 03/17/2023 text/html Physically she i s feeling well, but still struggling with the of her mother and step son recently attempted suicide. She is on fluoxetine 40 mg daily and adderall 5 mg po bid. No sell/lend/sharing, no heavy etoh, no illegal drug use. No chest pain or sob. update 03/17/23: Focus is good, mood is not at baseline. No si/hi, but feels her medication needs to be adjusted. Kelsy Khan MD [address] [place] [address], [address], [place], [address], [facility] [employer] 03/17/2023 08:14:19 03/29/2023 text/html 37 yo female com es in for follow up in management of hypothyroidism, impaired fasting glucose last seen in Sep at that time we continued metformin for insulin sensitization- we trialed wegovy for weight management. we continued synthroid 75 mcg daily for thyroid She had been on ozempic for close to 1 year and she lost up to 30 pounds and maintaining. As far as her diet she doesn't eat the best. She will either not eat for most of the day and eat at night or she snacks all day. She will snack on turkey sticks and cheese and fruit/nut/cheese packs. She has some fatigue and low energy in the morning/and afternoon. She has not had a sleep study. She doesn't snore and doesn't gasp for breath. labs from 03/04/23:H/H .1iron sat 19%a1c 5.3%TSH of 0.75 uIU/mlFT4 of 0.9 ng/dLFT3 of 2.6 pg/mlB12/folate normaldexa level low so cortisol not reliableinsulin 13.2 uU/mlglucose 94 mg/dLCr normalLFT normal German Dee MD [address], [address], [place], [address], [employer] 03/29/2023 10:22:14 07/28/2023 text/html Physically she i s feeling well, but still struggling with the of her mother and step son recently attempted suicide. She is on fluoxetine 40 mg daily and adderall 5 mg po bid. No sell/lend/sharing, no heavy etoh, no illegal drug use. No chest pain or sob. update 03/17/23: Focus is good, mood is not at baseline. No si/hi, but feels her medication needs to be adjusted. update 07/28/23: She is taking her adderall 5 mg bid as prescribed, no selling/lending/anthony ng, no heavy etoh or illegal drug use. She is taking fluoxetine 60 mg daily and feels both anxious and depressed. No si/hi Kelsy Khan MD [address], [place], [address], [employer] 07/28/2023 08:19:12 09/13/2023 text/html much improved Kelsy Khan MD [address], [place], [address], [employer] 09/29/2023 17:42:41 12/13/2023 text/html Physically she i s feeling well, but still struggling with the of her mother and step son recently attempted suicide. She is on fluoxetine 40 mg daily and adderall 5 mg po bid. No sell/lend/sharing, no heavy etoh, no illegal drug use. No chest pain or sob. update 03/17/23: Focus is good, mood is not at baseline. No si/hi, but feels her medication needs to be adjusted. update 07/28/23: She is taking her adderall 5 mg bid as prescribed, no selling/lending/anthony ng, no heavy etoh or illegal drug use. She is taking fluoxetine 60 mg daily and feels both anxious and depressed. No si/hi update 09/13/23: much improved update 12/13/23: Mood is doing well, no issues with focus/concentration. Mood is stable on fluoxetine 40 mg daily. No selling/lending/anthony ng, no heavy etoh or illegal drug use. Kelsy Khan MD [address] [place] [address], [place], [phone], [employer] 12/13/2023 08:52:57 OBGyn Episode No OBEpisode recorded.
--- OUTSIDE RECORDS SUMMARY | 2025-01-31 08:55 | XMS_ITS | Clinical Summary ---
Author Organization [facility] Address [address] [place] [address] Care Team Providers Care Middleware Administrator Name Role Phone Andre Novoa MD Unavailable [phone] Jacki Medel NP Primary Care Provider [phone] Allergies Active Allergy Reactions Criticality Noted Date [...] Syringe Ultra-Fine 1 mL 31 gauge x 12/14 syringe as directed 02/29/20 22 Active cyanocobalamin (Vitamin B-12) 1,000 mcg/mL injectionIndicati ons:Vitamin B12 Deficiency Inject 1 mL (1,000 mcg total) under the skin once a week Tuesday02/29/20 Active dextroamphetamine -amphetamine (ADDERALL) 5 mg tabletIndications [...] mcg total) by mouth every morning 03/14/20 23 Active ergocalciferol (VITAMIN D) 50,000 unit capsule TAKE 1 CAPSULE BY MOUTH ONE TIME PER WEEK IN THE MORNING 02/10/20 23 Active Ozempic 1 mg/dose (4 mg/3 mL) pen injector injection INJECT 1 MG SUBCUTANEOUSLY ONCE A WEEK 90 DAYS Active levothyroxine (SYNTHROID) 125 mcg tablet Take 1 tablet (125 mcg total) by mouth 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 before 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 Active Active Problems Problem Noted Date Diagnosed Date Complex atypical endometrial hyperplasia 022 Overview (03/16/2022): Added automatically from request for surgery [id number] Menorrhagia with irregular cycle 03/16/2022 Overview (03/16/2022): Added automatically from request for surgery [id number] Lower abdominal pain 03/04/2022 Painless rectal bleeding [...] menstrual cycle 06/08/2010 Overview (11/04/2016): IRREGULAR MENSTRUATION Encounters Date Type Department Care Team Description 01/31/2025 Orders Only [facility] [address] [place] [phone] Katya Murillo RN Iron deficiency anemia due to chronic blood loss (Primary Dx) 01/30/2025 1:15 PM CDT Office Visit [facility] [address] [place] [phone] Andre Novoa MD Iron deficiency anemia due to chronic blood loss (Primary Dx) 01/30/2025 12:45 PM CDT Lab [facility] at [address] [address] Iron deficiency anemia due to chronic blood loss 11/28/2024 Telephone [facility] [address] [place] [phone] Remedios Johnson CMA from Last 3 Months Immunizations Immunization Administration Dates Next Due Influenza, Quadrivalent, Spl it, Preservative Free, Intradermal 05/19/2016,05/01/2015 Influenza, Quadrivalent, Spl it, Preservative Free, Intramuscular 06/12/2021,04/29/2020 Influenza, Trivalent, IM (MDV) 04/01/2013 Influenza, Trivalent, Preservative Free, Intramu scular 04/14/2018 Tdap 01/14/2016 Surgical History Surgery Date Site/Laterality Comments CHOLECYSTECTOMY 08/01/2008 - 07/31/2009 Cholecystectomy GASTRIC BYPASS 08/01/2007 - 07/31/2008 Gastric bypass TONSILLECTOMY 08/01/2002 - 07/31/2003 Tonsillectomy WISDOM TOOTH EXTRACTION 08/01/2001 - 07/31/2002 DILATION AND CURETTAGE OF UTERUS 08/01/2021 - 07/31/2022 COLONOSCOPY W/ ENDOSCOPIC US 08/01/2021 - 07/31/2022 Medical History Medical History Date Comments Depression Depression Hx Other Medical fatty liver rel ated to obesity Anxiety Low iron Hypotension Anemia Frequent headaches Hypothyroidism Morbid obesity (HCC) Complex atypical endometrial hyperplasia Motion sickness long distances in car Family History Medical History Relation Name Comments Allergies Brother 1 Asthma Brother 1 Asthma; Multiple sclerosis Brother 1 Depression Brother 2 Depression; No Known Problems Child 1 Allergies Child 2 Asthma Child 2 Autism Child 2 No Known Problems Child 3 Breast cancer Cousin Coronary artery disease Father Wendy nary artery disease; Dementia Father Heart attack Father Hypertension Father Hypertension; Breast cancer Father's Sister Cancer -rolly ast; Prostate cancer Maternal Grandfather Canc er -prostate; Uterine cancer Maternal Grandmother Colon cancer Maternal Great-Grandfather Ovarian cancer Maternal Great-Grandmother Depression Mother Depression; Esophageal cancer Mother Hypertension Mother Other Mother Alive and well; Stroke Mother Other Other 1 No family histo ry of Diabetes mellitus; Other Other 2 No family histo ry of Stroke; Heart attack Paternal Grandfather Stroke Paternal Grandmother Allergies Sister 1 Asthma Sister 1 Asthma; hpv Sister 1 No Known Problems Sister 2 Anesthesia problems Neg Hx Relation Name Status Comments Brother 1 Brother 2 Child 1 Alive Child 2 Alive Child 3 Alive Cousin Alive Father Alive 1st [place] age mid- late 50s Father's Sister Maternal Grandfather Maternal Grandmother Maternal Great-Grandfather Maternal Great-Grandmother Mother Alive CVA age 68 Other 1 Other 2 Paternal Grandfather Paternal Grandmother Sister 1 Alive Sister 2 Alive Social History Tobacco Use Types Packs/Day [...] on file Legal Sex Female 6:17 PM CERTIFIED WELDER Gender Identity Not on file Sexual Orientation Not on file Obstetrics History Para Term AB IAB SAB Ectopic Multiple Livin g Live Births 3 3 3 3 3 Date Outcome GA Total Labor Labor/2nd/3rd Weight Sex Type Anes PTL Adilene A1 A5 Name Clin 2012 Term 39w 1d 14h 10m/0h 27m/ 3.43 kg (7 lb 9 oz) F Vag-S pont Epidur al Livin g 8 9 KIBLE R,GIR L1AMB ER Delivery Location[facility] Comments:No observed a nomaliotis 2015 Term 40w 2d 5h 20m/0h 24m/ 3.742 kg (8 lb 4 oz) F Vag-S pont Epidur al N Livin g 8 9 Arti Castillo Complications:None Delivery Location:[facility] 2017 Term 39w 3d 3h 23m 3h 19m/0h 01m/0h 03m 3.195 kg (7 lb 0.7 oz) F Vag-S pont Epidur al Livin g 8 9 KIBLE R,GIR L1AMB ER Jeffery wood MD Complications:None Delivery Location:[facility] ([facility] MOTHER BABY 5C) Last Filed Vital Signs Vital Sign Reading [...] 01/30/2025 1:07 PM CDT Plan of Treatment Health Maintenance Due Date Last Done Comments Cervical Cancer Screening 1985 Depression Screening 1985 Hepatitis C Screening 1985 Varicella Vaccines (1 of 2 - 13+ 2-dose series) 1998 Hepatitis B Screening 10/10/2003 Regular Well Visit/Exam 18-64 10/10/2003 Covid-19 Vaccine ( season) 2024 07/04/2021, 10/17/2020 Influenza Vaccine (#1) 2025 , 06/01/2022, 06/12/2021, Additional history exists DTaP/Tdap/Td Vaccine (2 - Td or Tdap) 01/13/2026 01/14/2016 HPV Vaccines Aged Out No longer eligi ble based on patient's age to complete this topic Pneumococcal vaccine <65 Aged Out No longer eligible based on patient's age to complete this [...] Differential, auto (01/30/2025 1:01 PM CDT) Pathologist [facility] Neutrophil abs 4.38 1.50 - 6.50 K/cumm Comment:Testing performed by : [address] [address] Imm gran abs 0.02 0.00 - 0.10 K/cumm [facility] Comment:Testing performed by : [address] [address] Lymphocyte abs 1.93 0.80 - 3.30 K/cumm [facility] Comment:Testing performed by : [address] [address] Monocyte abs 0.48 0.20 - 0.80 K/cumm [facility] Comment:Testing performed by : [address] [address] Eosinophil abs 0.13 0.00 - 0.50 K/cumm [facility] Comment:Testing performed by : [address] [address] Basophil abs 0.02 0.00 - 0.10 K/cumm [facility] Comment:Testing performed by : [address] [address] Neutrophil pct 62.9 % [facility] Comment: Interpretive Data Percent cell count reference ranges are not reported, since discordance with absolute values may lead to misinterpretation of CBC data. Current Interpretive Data was last revised on 2017. Testing performed by: [address] [address] Imm gran pct 0.3 % [facility] Comment: Interpretive Data Percent cell count reference ranges are not reported, since discordance with absolute values may lead to misinterpretation of CBC data. Current Interpretive Data was last revised on 2017. Testing performed by: [address] [address] Lymphocyte pct 27.7 % [facility] Comment: Interpretive Data Percent cell count reference ranges are not reported, since discordance with absolute values may lead to misinterpretation of CBC data. Current Interpretive Data was last revised on 2017. Testing performed by: [address] [address] Monocyte pct 6.9 % [facility] Comment: Interpretive Data Percent cell count reference ranges are not reported, since discordance with absolute values may lead to misinterpretation of CBC data. Current Interpretive Data was last revised on 2017. Testing performed by: [address], [place]., [address] Eosinophil pct 1.9 % [facility] Comment: Interpretive Data Percent cell count reference ranges are not reported, since discordance with absolute values may lead to misinterpretation of CBC data. Current Interpretive Data was last revised on 2017. Testing performed by: [address] [address] Basophil pct 0.3 % [facility] Comment: Interpretive Data Percent cell count reference ranges are not reported, since discordance with absolute values may lead to misinterpretation of CBC data. Current Interpretive Data was last revised on 2017. Testing performed by: [address] [address] Blood 01/30/2025 1:01 PM CDT 01/30/2025 1:03 PM CDT us Andre Novoa MD LAB BLOOD ORDERABLES [facility] Result [facility] [address] [facility] [place] [address] * Iron profile w/ IBC (01/30/2025 1:01 PM CDT) Iron See Comment 35 - 219 Comment: Unable to perform testing due to: hemolysis. If testing still needed, please re-order and contact the patient to return for testing. Testing performed by: [address] [address] TIBC See Comment 250 - 400 [facility] Comment: Unable to perform testing due to: hemolysis. If testing still needed, please re-order and contact the patient to return for testing. Testing performed by: [address] [address] Transferrin saturation See Comment 20 - 50 [facility] Comment: Unable to perform testing due to: hemolysis. If testing still needed, please re-order and contact the patient to return for testing. Testing performed by: [address] [address] Blood 01/30/2025 1:01 PM CDT 01/30/2025 4:13 PM CDT us Andre Novoa MD LAB BLOOD ORDERABLES Fi nal Result [facility] [address] [facility] [place] [address] * CBC with auto differential (01/30/2025 1:01 PM CDT) WBC 6.96 3.80 - 9.90 K/cumm Comment:Testing performed by : [address] [address] Hgb 13.1 11.9 - 15.5 g/dL [facility] Comment:Testing performed by : [address] [address] Hct 39.7 35.6 - 45.5 % [facility] Comment:Testing performed by : [address] [address] Plt 329 150 - 400 K/cumm [facility] Comment:Testing performed by : [address] [address] MPV 9.4 9.1 - 12.3 fL [facility] Comment:Testing performed by : [address] [address] RBC 4.79 3.90 - 5.20 M/cumm [facility] Comment:Testing performed by : [address] [address] MCV 82.9 81.3 - 96.4 fL [facility] Comment:Testing performed by : [address] [address] MCH 27.3 27.1 - 33.3 pg [facility] Comment:Testing performed by : [address] [address] MCHC 33.0 32.3 - 35.7 g/dL [facility] [place] Comment:Testing performed by : [address] [address] RDW CV 13.2 11.1 - 14.9 % [facility] Comment:Testing performed by : [address] [address] RDW SD 39.8 35.7 - 48.1 fL [facility] Comment:Testing performed by : [address] [address] NRBC abs 0.00 0.00 - 0.01 K/cumm [facility] Comment:Testing performed by : [address] [address] ANC Prelim 4.38 1.50 - 6.50 K/cumm [facility] Comment: Interpretive Data The rapid ANC is a preliminary automated count and may vary from the final ANC (Neut Abs) reported in the WBC differential that follows. Current interpretive data was last revised 2024. Testing performed by: [address] [address] Blood 01/30/2025 1:01 PM CDT 01/30/2025 1:03 PM CDT Andre Novoa MD LAB BLOOD ORDERABLES Fi nal Result [facility] [address] [facility] of [facility] [place], [place] [id number] * Folate (01/30/2025 1:01 PM CDT) Folic acid See Comment >=5.0 Comment: Unable to perform testing due to: hemolysis. If testing still needed, please re-order and contact the patient to return for testing. Testing performed by: [address] [address] Blood 01/30/2025 1:01 PM CDT 01/30/2025 4:14 PM CDT Andre Novoa MD LAB BLOOD ORDERABLES Fi nal Result Performing Organization Address City/[facility] Co de Phone Number CHANCE [address] [address] * Ferritin (01/30/2025 1:01 PM CDT) Ferritin 53 13 - 150 ng/mL Comment:Testing performed by : [address] [address] Blood 01/30/2025 1:01 PM CDT 01/30/2025 4:13 PM CDT Andre Novoa MD LAB BLOOD ORDERABLES Fi nal Result Performing Organization Address [facility] Co de Phone Number [facility] [address] [address] * Vitamin B12 (01/30/2025 1:01 PM CDT) Pathologist [facility] Vitamin B12 See Comment 230 1250 Comment: Unable to perform testing due to: hemolysis. If testing still needed, please re-order and contact the patient to return for testing. Testing performed by: [address] [address] Blood 01/30/2025 1:01 PM CDT 01/30/2025 4:14 PM CDT Andre Novoa MD LAB BLOOD ORDERABLES Fi nal Result Performing Organization Address [facility] Co de Phone Number [facility] [address] [place] [address] from Last 3 Months Insurance [employer] [place] [place] [place] Care Teams Middleware Administrator Relationship Specialty Start Date End Date Jacki Medel NP [address] [facility] [address] [place] [address] PCP - General Nurse Practitioner 02/01/24 Andre Novoa MD [address] [place] [address] MEDICAL ONCOLOGY, [facility] [address] [place] [address] Medical Oncologist/Pathology Teacher Hematology and Oncology 02/01/24
--- OUTSIDE RECORDS SUMMARY | 2025-01-31 08:55 | XMS_ITS ---
Author Organization [facility] Address [address] [address] Care Team Providers Care Customer Engagement Manager Name Role Phone Violeta Mendez Primary Care Provider Migration, Provider Unavailable Unavailable Allergies Allergen (clinical drug ingredient) Drug/Non Drug Allergy documented on EMR Reaction Allergy Type Onset Date Status codeine Codeine Unknown Drug Allergy Active REASON FOR VISIT Multum To Medispan Conversion Encounter Medications Medication SIG (Take, Route, Frequency, Duration) Notes Start Date End Date Status dexAMETHasone 1 MG 1 tab(s) orally at 10 pm night before 8 am cortisol for 1 days 05/28/2024 Active Liothyronine Sodium 5 MCG 1 tab(s) orally once a day for 90 days 03/16/2024 Active Ozempic (2 MG/DOSE) 8 MG/3ML inject 2 mg subcutaneously once a week for 90 days 05/28/2024 Active dexAMETHasone 4 MG 1 tab(s) orally at 10 pm night before 8 am cortisol for 1 days 05/28/2024 Active Cyanocobalamin 1000 MCG/ML inject 1ml subcutaneously once weekly for 90 days 05/28/2024 Active Cyanocobalamin 1000 MCG/ML INJECT 1 ML UNDER THE SKIN ONCE A MONTH for 84 Days Active metFORMIN HCl 500 MG 1 tab(s) orally onc e daily for 90 days 03/16/2024 Active Amphetamine-Dextroamp hetamine 10 MG 1 CAP(S) ORALLY 2 TIMES A DAY for 30 DAYS *Please review and pick correct strength-formulat ion from Medispan options. If intended option is not shown, discontinue and re-order from Quick Search* Active Spironolactone 50 MG TAKE 2 TABLETS EVER Y DAY BY ORAL ROUTE IN THE MORNING FOR 90 DAYS. for 90 Days Active Folic Acid 1 MG for 90 Days Ac tive Synthroid 125 MCG 1 tab(s) orally once daily with water only for 90 days 01/09/2024 Active Ozempic (1 MG/DOSE) 4 MG/3ML inject 1 mg subcutaneously once a week for 90 days 12/05/2023 Active Encounters Encounter Location Date Provider Diagnosis [facility] [address] [phone] 06/16/2024 Provider Migration Obesity, unspecified E66.9 and Type 2 diabetes mellitus with hyperglycemia E11.65 Assessments Encounter Date Diagnosis (ICD Code) Assessment Notes Treatment Notes Treatment Clinical Notes Section Notes 06/16/2024 Obesity, unspecified (ICD-10 - E66.9) 06/16/2024 Type 2 diabetes mellitus with hyperglycemia (ICD-10 - E11.65) Plan Of Treatment Medication Medication Name Sig Start Date Stop Date Notes dexAMETHasone 1 MG 1 tab(s) orally at 1 0 pm night before 8 am cortisol for 1 days 05/28/2024 Ozempic (2 MG/DOSE) 8 MG/3ML inject 2 mg subcutaneously once a week for 90 days 05/28/2024 dexAMETHasone 4 MG 1 tab(s) orally at 1 0 pm night before 8 am cortisol for 1 days 05/28/2024 Cyanocobalamin 1000 MCG/ML inject 1ml orozco bcutaneously once weekly for 90 days 05/28/2024 Progress Notes * Julianna ARNOLDDOB:1985 (39 yo F)Acc No.[id number]:06/16/2024 Patient: Julianna BUENO Provider: Shonna gracia Migration :1985 A ge:38 Y S ex:Female Date:06/16/2024 Address:[address] [place] [address] Pcp:Violeta Mendez Subjective: * Chief Complaints: * 1 . Multum To Medispan Conversion Encounter. * Medical History: * Medications: T aking Ozempic (1 MG/DOSE)(Semaglutide (1 MG/DOSE)) 4 MG/3ML Solution Pen- injector inject 1 mg subcutaneously once a week , Taking Synthroid(Levothyroxine Sodium) 125 MCG Tablet 1 tab(s) orally once daily with water only , Taking Folic Acid 1 MG Tablet , Taking Amphetamine-Dextroamphetamine 10 MG CAPSULE, EXTENDED RELEASE 1 CAP(S) ORALLY 2 TIMES A DAY , Notes to Pharmacist: *Please review and pick correct strength-formulation from [facility] options. If intended option is not shown, discontinue and re-order from Quick Search*, Taking Spironolactone 50 MG Tablet TAKE 2 TABLETS EVERY DAY BY ORAL ROUTE IN THE MORNING FOR 90 DAYS. , Taking Cyanocobalamin 1000 MCG/ML Solution INJECT 1 ML UNDER THE SKIN ONCE A MONTH , Taking metFORMIN HCl 500 MG Tablet 1 tab(s) orally once daily , Taking Liothyronine Sodium 5 MCG Tablet 1 tab(s) orally once a day * Allergies: C odeine. Objective: * Vitals: Assessment: * Assessment: 1. O besity, unspecified - E66.9 2 . T ype 2 diabetes mellitus with hyperglycemia - E11.65 Plan: * Treatment: 2. T ype 2 diabetes mellitus with hyperglycemia Start Ozempic (2 MG/DOSE) Solution Pen-injector, 8 MG/3ML, inject 2 mg, subcutaneously, once a week, 90 days, 3, Refills 1. 3. O thers Start Cyanocobalamin Solution, 1000 MCG/ML, inject 1ml, subcutaneously, once weekly, 90 days, 13 Milliliter, Refills 1. * Billing Information: * Visit Code: * Procedure Codes: * Electronic signature of Prov sapphire Migration on 01/31/2025 at 08:55 AM CDT Sign off status: Pending * Provider: Shonna gracia Migration Date: 08/16/2023 Generated for Ellie johnson/Chang/Еленаitting on: 0 01/31/2025 08:55 AM CDT
--- OUTSIDE RECORDS SUMMARY | 2025-01-31 08:56 | XMS_ITS | Patient Health Record ---
Author Organization [facility] Address [address] [facility] [address] [place] [address] Care Team Providers Care Commercial Light Fixture Assembler Name Role Phone Jyoti Radford MD Primary Care Provider Unavailable Judy Villanueva Unavailable [phone] Jyoti Greenberg Unavailable [phone] Allergies Allergen (clinical drug ingredient) Drug/Non Drug Allergy documented on EMR Reaction Allergy Type Onset Date Status codeine Codeine Unknown Drug Allergy Active Results Component Value Reference Range Notes UDT Reviewed date:06/26/2024 10:47:58 AM Interpretation: Performing Lab: Notes/Report: THC P 0 - 50 ng/ml Cocaine N 0 - 300 ng/ml Amphetamine P 0 - 1000 ng/ml Buprenorphine (BUP) N 0 - 10 ng/ml Secobarbital (Bar) N 0 - 300 ng/ml Oxazepam (BZO) N 0 - 300 ng/ml 0-redjndlmhe-1,5-gqqpdmrw-6,3-diphenylpyrrolidine (GIOVANNY P) N 0 - 300 ng/ml Methamphetamine (MET) N 0 - 1000 ng/ml Methylenedioxymethamphetamine (MDMA) N 0 - 500 ng/ml Morphine (MOP 300/[id number]) N 0 - 300 ng/ml Methadone (MTD) N 0 - 300 ng/ml Phencyclidine (PCP) N 0 - 25 ng/ml Nortriptyline (TCA) N 0 - 1000 ng/ml Oxycodone N 0 - 300 ng/ml x N 0 - 300 ng/ml Reason For Referral No Information Medications Medication SIG (Take, Route, Frequency, Duration) Notes Start Date End Date Status FLUoxetine HCl 40 MG TAKE 1 CAPSULE BY M OUTH EVERY DAY Oral; Duration: 90 Days Active Liothyronine Sodium 5 MCG Oral; Duration: 7 Days Activ e Folic Acid 1 MG TAKE 1 TABLET BY TONA TH EVERY DAY IN THE MORNING Oral; Duration: 90 Days Not-Taki ng Amphetamine-Dextroamphet amine 10 MG Oral Active Spironolactone 50 MG TAKE 2 TABLETS BY M OUTH DAILY Oral; Duration: 90 Days Active Levothyroxine Sodium 125 MCG Oral; Duration: 90 Days Acti ve FLUoxetine HCl 20 MG TAKE 1 CAPSULE BY M OUTH ONCE DAILY WITH 40 MG CAPSULE DAILY FOR TOTAL OF 60 MG A DAY Oral; Duration: 90 Days Active Vitamin D (Ergocalciferol) 1.25 MG (51839 UT) TAKE 1 CAPSULE BY MOUTH ONE TIME PER WEEK IN THE MORNING Oral; Duration: 90 Days Active Ozempic (1 MG/DOSE) 4 MG/3ML Subcutaneous; Duration: 84 Days Active metFORMIN HCl 500 MG Oral; Duration: 90 Days Active FLUoxetine HCl 40 MG 2 capsule every mor neva Oral Once a day; Duration: 90 days 06/26/2024 Active Cyanocobalamin 1000 MCG/ML INJECT 1ML SUBCUTANEOUSLY ONCE WEEKLY 90 DAYS Injection; Duration: 90 Days Active Social History Tobacco Use: Social History Observation Description Date Details (start date - stop date) Never Smoker NA - NA Sex Assigned At : Social History Observation Description Sex Assigned At Female Tobacco Control (Standard) Question Answer Notes Tobacco use: Nonsmoker AUDIT-C (Standard) Question Answer Notes Did you have a drink containing alcohol in the p ast year? No Interpretation Positive Problems Problem Type SNOMED Code ICD Code Onset Dates Problem Status W/U Status Risk Notes Problem Severe recurrent major depression without psychotic features (12209406) Major depressive disorder, recurrent severe without psychotic features (F33.2) Active confirmed Problem Generalized anxiety disorder (F41.1) Active confirmed Problem Attention deficit hyperactivity disorder, combined type (72262843) Attention-deficit hyperactivity disorder, combined type (F90.2) Active confirmed Vital Signs Heart Rate 72 /min 06/26/2024 Blood pressure diastolic 82 mm Hg 06/26/2024 Weight-kg 163.29 kg 06/26/2024 Blood pressure systolic 129 mm Hg 06/26/2024 Weight 360 lbs 06/26/2024 Encounters Encounter [facility] Date [email or web address] [address] [place] [address] [place] [id number] 06/26/2024 Jyoti Greenberg Major depressive disorder, recurrent severe without psychotic features F33.2 ; Generalized anxiety disorder F41.1 and Attention-deficit hyperactivity disorder, combined type F90.2 [facility] [employer] [facility] [address] [place] [address] [place] [address] 07/20/2024 Jyoti Greenberg Assessments Encounter Date Diagnosis (ICD Code) Assessment Notes Treatment Notes Treatment Clinical Notes Section Notes 06/26/2024 Major depressive disorder, recurrent severe without psychotic features (ICD-10 - F33.2) SSRI/SNRI side effects discussed including but not limited to, gastric upset, nausea, vomiting, diarrhea and/or constipation, weight changes, sexual side effects including loss of libido, increased suicidal thoughts/behaviors in children and young adults, and serotonin syndrome. SSRIs and Marijuana: Cannabidiol, or CBD, in marijuana can increase the levels of SSRIs in your bloodstream because CBD blocks your body from clearing the antidepressant as quickly as normal. Having increased levels of serotonin in your body from SSRI use can cause a potentially fatal condition called serotonin syndrome. Serotonin syndrome is a potentially life threatening drug reaction that causes the body to have too much serotonin, a chemical produced by nerve cells. -Causes: Serotonin syndrome most often occurs when two or more drugs that affect the body's level of serotonin are taken together at the same time. The drugs cause too much serotonin to be released or to remain in the brain area. For example, you can develop this syndrome if you take migraine medicines called triptans together with antidepressants called selective serotonin reuptake inhibitors (SSRIs) and selective serotonin/norepinep hrine reuptake inhibitors (SSNRIs). Talk to your doctor before stopping any medication. -Serotonin syndrome is more likely to occur when you first start or increase the medicine. -Drugs of abuse, such as ecstasy and LSD have also been associated with serotonin syndrome. -Symptoms: agitation or restlessness, diarrhea, fast heart rate and high blood pressure, hallucinations, loss of coordination, nausea, overactive reflexes, vomiting, sweating, tremor/shivering, fever. If you experience these symptoms, seek emergency care right away. 06/26/2024 Generalized anxiety disorder (ICD-10 - F41.1) 06/26/2024 Attention-deficit hyperactivity disorder, combined type (ICD-10 - F90.2) ADDERALL PER PCP 06/26/2024 Other Increase fluoxetine to 80mg daily --consider switching to duloxetine if fluoxetine ineffective; could help with nerve pain also. Adderall per PCP due to cannabis use, office controlled substance policy. Patient educated on all medications including potential benefits, side effects, risks. Educated on proper dosing schedule and importance of compliance. Plan Of Treatment No Information Insurance Providers Payer Name Payer Address Payer Phone Subscriber Number Group Number Insured Name Patient Relationship to Insured Coverage Start Date Coverage End Date [facility] [address] [place] [address] [id number] Julianna Martinez Self - patient is the insured Medical (General) History Medical History History ICD Code Past Psychiatric History: Anxiety Disord er,Major Depressive Episode abdominal aortic aneurysm: No atrial fibrillation: No chronic fatigue syndrome: Yes essential tremor: No hyperlipidemia: No hypertension: No Parkinson's disease: No restless leg syndrome: No stroke: No subdural hematoma: No type 1 diabetes mellitus: No type 2 diabetes mellitus: No vitamin B12 deficiency: Yes vitamin D deficiency: Yes Surgical History Surgery Date(Month/Year) gastric bypass gall bladder surgery hysterectomy
--- OUTSIDE RECORDS SUMMARY | 2025-01-31 08:56 | XMS_ITS | Encounter Summary ---
Author Organization [facility] Address [address] [facility] [address] Care Team Providers Care News Videographer Name Role Phone Lona Crandall MD Primary Care Provider Sample, Larry Gudino MD Unavailable [phone] Jyoti Radford MD Primary Care Provider Encounter Details Date Type Department Care Team (Late Contact Info) Description 12/30/2014 Therapy Visit [facility] [address] [place] [phone] Holly Barrera MD [address] [place] [phone] Social History Tobacco Use Types Packs/Day Years Used Date Smoking Tobacco: Never Alcohol Use Standard Drinks/Week Comments No 0 (1 standard drink = 0.6 oz pur e alcohol) Comments No Sex and Gender Information Value Date Recorded Sex Assigned at Not on file Legal 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 Gender Identity Female 06/01/2017 10:46 AM CDT Sexual Orientation Not on file documented as of this encounter Plan of Treatment Upcoming Encounters Date Type Department Care Team (Late Contact Info) Description 03/01/2025 11:00 AM CDT Office Visit [facility] [address] [facility] [address] [place] [address] Jenaro Finney MD [address] [facility] [address] [place] [phone] 06/13/2025 8:00 AM WEATHER TEACHER Office Visit [facility] - Family Medicine [address], [facility] [address] [place] [address] Jacki Medel, PLATE AND FRAME FILTER OPERATOR-PATIENT TRANSPORT ORDERLY [address] [facility] [address] [place] [address] documented as of this encounter Visit Diagnoses Not on filedocumented in this encounter Care Teams News Videographer Relationship Specialty [place] [address] [facility] [facility] [address] [place] [address] PCP - General Family Medicine 08/22/12 01/05/24 Jyoti Radford MD [address] [place] [address] PCP - General Internal Medicine 01/06/24 [place] [id number] [address] Coal Gasification Technician Obstetrics and Gynecology 09/15/12 documented as of this encounter
--- OUTSIDE RECORDS SUMMARY | 2025-01-31 08:56 | XMS_ITS | Encounter Summary ---
Author Organization [facility] Address [address] [place] [address] Care Team Providers Care Design Engineer Marine Equipment Name Role Phone Lona Crandall MD Primary Care Provider Sample, Larry Gudino MD Unavailable [phone] Jyoti Radford MD Primary Care Provider Encounter Details Date Type Department Care Team (Late Contact Info) Description 12/05/2014 Therapy Visit [facility] [address] [place] [phone] Holly Barrera MD [address] [place] [phone] Social History Tobacco Use Types Packs/Day Years Used Date Smoking Tobacco: Never Alcohol Use Standard Drinks/Week Comments No 0 (1 standard drink = 0.6 oz pur e alcohol) Comments No Sex and Gender Information Value Date Recorded Sex Assigned at Not on file 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 Gender Identity Female 06/01/2017 10:46 AM CDT Sexual Orientation Not on file documented as of this encounter Plan of Treatment Upcoming Encounters Date Type Department Care Team (Late Contact Info) Description 03/01/2025 11:00 AM CDT Office Visit [facility] [address] [facility] [address] [place] [address] Jenaro Finney MD [address] [facility] [address] [place] [phone] 06/13/2025 8:00 AM DANCE COACH Office Visit [facility] - Family Medicine [address], [facility] [address] [place] [address] Jacki Medel, MILLING GENERAL SUPERINTENDENT-CAR KNOCKER [address] [place] [address] documented as of this encounter Visit Diagnoses Not on filedocumented in this encounter Care Teams Design Engineer Marine Equipment Relationship Specialty Start [place] [address] [facility] [facility] [address] [place] [address] PCP - General Family Medicine 08/22/12 01/05/24 Jyoti Radford MD [address] [place] [address] PCP - General Internal Medicine 01/06/24 [place] [address] [address] Advertising Analyst Obstetrics and Gynecology 09/15/12 documented as of this encounter
--- OUTSIDE RECORDS SUMMARY | 2025-01-31 08:56 | XMS_ITS | Patient Health Record ---
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 Name Role Phone Violeta Mendez Primary Care Provider Elizabeth Ardon Unavailable [phone] Migration, Provider Unavailable Unavailable Allergies Allergen (clinical drug ingredient) Drug/Non Drug Allergy documented on EMR Reaction Allergy Type Onset Date Status codeine Codeine Unknown Drug Allergy Active Results Component Value Reference Range Notes COMPREHENSIVE METABOLIC PANE L Reviewed date:03/06/2024 09:04:08 AM Interpretation: Performing Lab:CINDY, [facility], [address], [place], [address] Abbi Salinas MD Notes/Report: ACTH, PLASMA Reviewed date:03/12/2024 08:27:03 PM Interpretation: Performing Lab:ONOFRE [facility], [address] , [place], [address] Primo Santiago M.D.,PhD Notes/Report: T3, FREE Reviewed date:03/06/2024 09:04:15 AM Interpretation: Performing Lab:KS, [facility], [address], [place], [address] Abbi Salinas MD Notes/Report: HEMOGLOBIN A1c Reviewed date:03/06/2024 09:01:57 AM Interpretation: Performing Lab:MARIANNE [facility], [address] , [place], [address] Abbi Salinas Notes/Report: CBC (INCLUDES DIFF/PLT) Reviewed date:03/06/2024 09:18:04 AM Interpretation: Performing Lab:KS, [facility], [address], [place], [address] Abbi Salinas MD Notes/Report: T4, FREE Reviewed date:03/06/2024 09:18:09 AM Interpretation: Performing Lab:[facility], [address], [place], [address] Abbi Salinas MD Notes/Report: TSH Reviewed date:03/06/2024 09:05:28 AM Interpretation: Performing Lab:[facility], [address], [place], [address] Abbi Salinas MD Notes/Report: CORTISOL, TOTAL Reviewed date:03/18/2024 02:53:41 PM Interpretation: Performing Lab:[facility], [address], [place], [address] Abbi Salinas MD Notes/Report: DEXAMETHASONE Reviewed date:04/15/2024 09:51:23 PM Interpretation: Performing Lab:[facility],, [address] [place], [address] Yanni Hollingsworth MD,PhD,[place] Notes/Report: FASTING:YES FASTING: YES DEXAMETHASONE 119 Reference Ranges for Dexamethasone: Baseline: Less than 20 ng/dL 1 mg dexamethasone overnight: 180-550 ng/dL (8:00-10:00 AM) This test was developed and its analytical performance characteristics have been determined by [employer]. It has not been cleared or approved by FDA. This assay has been validated pursuant to the CLIA regulations and is used for clinical purposes. CORTISOL, TOTAL Reviewed date:04/07/2024 08:50:05 PM Interpretation: Performing Lab:[facility], [address], [place], [address] Abbi Salinas MD Notes/Report: FASTING:YES FASTING: YES COMPREHENSIVE METABOLIC PANE L Reviewed date:06/07/2024 08:54:08 PM Interpretation: Performing Lab:[facility], [address] [place], [address] Abbi Salinas MD Notes/Report: COLLECTION KIT GIVEN TO PATIENT. PATIENT ADVISED TO RETURN. URINE VOLUME: 2000 ACTH, PLASMA Reviewed date:06/10/2024 08:54:08 AM Interpretation: Performing Lab:[facility], [address], [place], [address] Primo Santiago M.D.,PhD Notes/Report: COLLECTION KIT GIVEN TO PATIENT. PATIENT ADVISED TO RETURN. URINE VOLUME: 2000 T3, FREE Reviewed date:06/07/2024 08:53:43 PM Interpretation: Performing Lab:[facility], [address] [place], [address] Abbi Salinas MD Notes/Report: COLLECTION KIT GIVEN TO PATIENT. PATIENT ADVISED TO RETURN. URINE VOLUME: 1999 PROLACTIN, DILUTION STUDY Reviewed date:06/07/2024 08:11:18 PM Interpretation: Performing Lab:[facility], [address] [place], [address] Abbi Salinas MD Notes/Report: COLLECTION KIT GIVEN TO PATIENT. PATIENT ADVISED TO RETURN. URINE VOLUME: 2000 PROLACTIN, UNDILUTED 5.6 PROLACTIN, DILUTED Result confirmed by 1:100 dilution. No high dose hook effect detected. Reference Range Females Non- 3.0-30.0 10.0-209.0 Postmenopausal 2.0-20.0 Prolactin dilution studies are done to determine if there is a high-dose hook effect (i.e. a non-linear assay response due to a very high concentration of Prolactin). This is reported to occur at Prolactin concentrations at or above 30,000 ng/mL. This test is not recommended for identifying macroprolactin. [employer] [place], Prolactin, Total and Monomeric is the recommended test (Order code 98976). FSH Reviewed date:06/07/2024 08:53:34 PM Interpretation: Performing Lab:[facility], [address], [place], [address] Abbi Salinas MD Notes/Report: COLLECTION KIT GIVEN TO PATIENT. PATIENT ADVISED TO RETURN. URINE VOLUME: 2000 LH Reviewed date:06/07/2024 08:53:52 PM Interpretation: Performing Lab:[facility], [address], [place], [address] Abbi Salinas MD Notes/Report: COLLECTION KIT GIVEN TO PATIENT. PATIENT ADVISED TO RETURN. URINE VOLUME: 1999 CBC (INCLUDES DIFF/PLT) Reviewed date:06/11/2024 08:24:41 PM Interpretation: Performing Lab:[facility], [address], [place], [place], [address] Abbi Salinas MD Notes/Report: COLLECTION KIT GIVEN TO PATIENT. PATIENT ADVISED TO RETURN. URINE VOLUME: 1999 VITAMIN B12/FOLATE, SERUM PA HENNY Reviewed date:06/07/2024 09:40:11 PM Interpretation: Performing Lab:[facility], [address], [place], [place], [address] Abbi Salinas MD Notes/Report: COLLECTION KIT GIVEN TO PATIENT. PATIENT ADVISED TO RETURN. URINE VOLUME: 1999 T4, FREE Reviewed date:06/07/2024 08:53:26 PM Interpretation: Performing Lab:[facility], [address], [place], [place], [address] Abbi Salinas MD Notes/Report: COLLECTION KIT GIVEN TO PATIENT. PATIENT ADVISED TO RETURN. URINE VOLUME: 1999 TSH Reviewed date:06/07/2024 08:53:18 PM Interpretation: Performing Lab:[facility], [address], [place], [address] Abbi Salinas MD Notes/Report: COLLECTION KIT GIVEN TO PATIENT. PATIENT ADVISED TO RETURN. URINE VOLUME: 1999 DEXAMETHASONE Reviewed date:06/17/2024 03:38:30 PM Interpretation: Performing Lab:[facility],, [address] [place], [address] Yanni Hollingsworth MD,PhD,[place] Notes/Report: FASTING:YES FASTING: YES DEXAMETHASONE 572 Reference Ranges for Dexamethasone: Baseline: Less than 20 ng/dL 1 mg dexamethasone overnight: 180-550 ng/dL (8:00-10:00 AM) This test was developed and its analytical performance characteristics have been determined by [employer]. It has not been cleared or approved by FDA. This assay has been validated pursuant to the CLIA regulations and is used for clinical purposes. CORTISOL, TOTAL Reviewed date:06/10/2024 09:16:28 AM Interpretation: Performing Lab:[facility], [address], [place], [address] Abbi Salinas MD Notes/Report: FASTING:YES FASTING: YES COMPREHENSIVE METABOLIC PANE L Reviewed date:07/29/2024 11:46:54 AM Interpretation: Performing Lab:[facility], [address], [place], [address] Abbi Salinas MD Notes/Report: FASTING:YES FASTING: YES ACTH, PLASMA Reviewed date:08/01/2024 10:21:46 AM Interpretation: Performing Lab:[facility], [address] [facility] , [place], [address] Primo Santiago M.D.,PhD Notes/Report: FASTING:YES FASTING: YES T3, FREE Reviewed date:07/29/2024 11:46:54 AM Interpretation: Performing Lab:[facility], [address], [place], [address] Abbi Salinas MD Notes/Report: FASTING:YES FASTING: YES DHEA SULFATE Reviewed date:07/29/2024 11:46:54 AM Interpretation: Performing Lab:[facility], [address], [place], [address] Abbi Salinas MD Notes/Report: FASTING:YES FASTING: YES HEMOGLOBIN A1c Reviewed date:07/29/2024 11:46:54 AM Interpretation: Performing Lab:[facility], [address] , [place], [address] Abbi Salinas Notes/Report: FASTING:YES FASTING: YES INSULIN Reviewed date:07/29/2024 11:46:54 AM Interpretation: Performing Lab:[facility], [address], [place], [address] Abbi Salinas MD Notes/Report: FASTING:YES FASTING: YES CBC (INCLUDES DIFF/PLT) Reviewed date:07/29/2024 11:46:54 AM Interpretation: Performing Lab:[facility], [address] [place], [address] Abbi Salinas MD Notes/Report: FASTING:YES FASTING: YES PROLACTIN Reviewed date:07/29/2024 11:46:54 AM Interpretation: Performing Lab:[facility], [address] [place], [address] Abbi Salinas MD Notes/Report: FASTING:YES FASTING: YES T4, FREE Reviewed date:07/29/2024 11:46:54 AM Interpretation: Performing Lab:[facility], [place], [address] Abbi Salinas MD Notes/Report: FASTING:YES FASTING: YES TSH Reviewed date:07/29/2024 11:46:54 AM Interpretation: Performing Lab:[facility], [place], [address] Abbi Salinas MD Notes/Report: FASTING:YES FASTING: YES Reason For Referral No Information Medications Medication SIG (Take, Route, Frequency, Duration) Notes Start Date End Date Status Mounjaro 5 MG/0.5ML inject 0.5ml Subcutaneous weekly for 90 days 08/27/2024 Active Cyanocobalamin 1000 MCG/ML INJECT 1 ML UNDER THE SKIN ONCE A MONTH for 84 Days Active Synthroid 125 MCG 1 tab(s) orally once daily with water only for 90 days 01/09/2024 Active Mounjaro 2.5 MG/0.5ML inject 0.5ml Subcutaneous weekly for 30 days 08/27/2024 Active metFORMIN HCl 500 MG 1 tab(s) orally onc e daily for 90 days 03/16/2024 Active Liothyronine Sodium 5 MCG 1-2 tablet on an empty stomach Orally Once a day around noon for 90 days 08/27/2024 Active Spironolactone 50 MG TAKE 2 TABLETS EVER Y DAY BY ORAL ROUTE IN THE MORNING FOR 90 DAYS. for 90 Days Active Synthroid 137 MCG 1 tablet in the morning on an empty stomach Orally Once a day for 90 days 08/27/2024 Active Amphetamine-Dextroamp hetamine 10 MG 1 CAP(S) ORALLY 2 TIMES A DAY for 30 DAYS *Please review and pick correct strength-formulat ion from Evgen options. If intended option is not shown, discontinue and re-order from Quick Search* Active Folic Acid 1 MG for 90 Days Ac tive Ozempic (2 MG/DOSE) 8 MG/3ML inject 2 mg subcutaneously once a week for 90 days 05/28/2024 Active Liothyronine Sodium 5 MCG 1 tab(s) orally once a day for 90 days 03/16/2024 Active Problems Problem Type SNOMED Code ICD Code Onset Dates Problem Status W/U Status Risk Notes Problem Vitamin D deficiency (60363866) Vitamin D deficiency, unspecified (E55.9) Active confirmed Problem Hyperglycemia due to type 2 diabetes mellitus (763774491695683) Type 2 diabetes mellitus with hyperglycemia (E11.65) Active confirmed Problem Hypothyroidism (82343803) Hypothyroidism, unspecified (E03.9) Active confirmed Problem Anxiety disorder (536477632) Anxiety disorder, unspecified (F41.9) Active confirmed Problem Obesity (385080368) Obesity, unspecified (E66.9) Active confirmed Problem Disorder of pituitary gland (409245459) Disorder of pituitary gland, unspecified (E23.7) Active confirmed Problem [place]'s syndrome (64093824) [place]'s syndrome, unspecified (E24.9) Active confirmed Problem Corticoadrenal insufficiency (214142040) Unspecified adrenocortical insufficiency (E27.40) Active confirmed Problem Morbid obesity (disorder) (396076089) Morbid (severe) obesity due to excess calories (E66.01) Active confirmed Problem Postablative ovarian failure (089482884) Symptomatic postprocedural ovarian failure (E89.41) Active confirmed Problem Body mass index 40+ - morbidly obese (125415848) Body mass index [BMI] 50.0-59.9, adult (Z68.43) Active confirmed Vital Signs Heart Rate 84 /min 08/27/2024 Blood pressure diastolic 79 mm Hg 08/27/2024 Height 67 in 08/27/2024 Blood pressure systolic 112 mm Hg 08/27/2024 Weight 354.0 lbs 08/27/2024 BMI 55.44 kg/m2 08/27/2024 Encounters Encounter Location Date Provider Diagnosis [facility] [place] [address] [place] [id number] 06/16/2024 Provider Migration Obesity, unspecified E66.9 and Type 2 diabetes mellitus with hyperglycemia E11.65 [facility] [address] [place] [address] 03/16/2024 Elizabeth Ardon Unspecified adrenocortical insufficiency E27.40 ; Trigeminal neuralgia G50.0 ; Hypothyroidism, unspecified E03.9 ; Benign neoplasm of pituitary gland D35.2 ; Body mass index [BMI] 50.0-59.9, adult Z68.43 ; Gentry's syndrome, 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 and Prediabetes R73.03 [facility]ram [facility]endez [address] [place] [address] 05/28/2024 Violeta Mendez Hypothyroidism, unspecified E03.9 ; Obesity, unspecified E66.9 ; Disorder of pituitary gland, unspecified E23.7 and Type 2 diabetes mellitus with hyperglycemia E11.65 [facility] [address] [place] [address] 08/27/2024 Violeta Mendez Hypothyroidism, unspecified E03.9 ; Morbid (severe) obesity due to excess calories E66.01 ; Type 2 diabetes mellitus with hyperglycemia E11.65 ; Vitamin D deficiency, unspecified E55.9 ; Obesity, unspecified E66.9 ; Dietary counseling and surveillance Z71.3 ; Encounter for screening for lipoid disorders Z13.220 ; Other fatigue R53.83 and Encounter for screening for other disorder Z13.89 [facility] [address] [place] [address] 04/11/2024 Violeta Mendez Disorder of pituitar y gland, unspecified E23.7 [facility] Violetaabram Mendez [address] [place] [address] 05/02/2024 Violeta Mendez Anxiety disorder, unspecified F41.9 [facility] - Violeta Andrea [address] [place] [address] 05/25/2024 Violeta Mendez [facility] - Violeta Andrea [address] [place] [address] 07/16/2024 Violeta Mendez [facility] - Violeta Andrea [facility] [place] [address] 12/06/2024 Violeta Andrea [facility] - Violeta Andrea [address] [place] [address] 03/17/2024 Violeta Andrea Prediabetes R73.03 a nd Obesity, unspecified E66.9 [facility] [address] [address] 03/19/2024 [facility]ioleta Andrea [facility] - Violeta Andrea [address] [place] [address] 04/13/2024 Violeta Mendez Hypothyroidism, unspecified E03.9 and [place]'s syndrome, 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 [facility] - Violeta Andrea [address] [place] [address] 04/19/2024 Violeta Andrea [facility] - Violeta Andrea [address] [place] [address] 05/24/2024 Violeta Mendez Assessments Encounter Date Diagnosis (ICD Code) Assessment Notes Treatment Notes Treatment Clinical Notes Section Notes 06/16/2024 Obesity, unspecified (ICD-10 - E66.9) 03/16/2024 Unspecified adrenocortical insufficiency (ICD-10 - E27.40) Send for CT adrenal glands due to high cortisol level need to rule out hyperplasia or adenoma. - DEXA suppression test results: Total cortisol at 3, with a previous level of 15.7 in October 2023. - No symptoms of sleep apnea, purple stretch acosta, or blood pressure concerns noted. Plan: Conduct a CT scan of the adrenals with and without contrast to investigate hyperplasia or adenoma. Consult with Dr. Mendez regarding potential pituitary issues and consider additional imaging (MRI Pituitary) Faxed to [facility] at: [phone] 03/16/2024 Trigeminal neuralgia (ICD-10 - G50.0) -Pt had recent MRI for diagnosis. Consider sending for MRI pituitary given her hx of suspicous mass in her pituitary gland when she was younger. Pt has severe clausterphobia - consider sending to [facility] ([facility]) for MR Pituitary if CT adrenal is negative. 05/28/2024 Hypothyroidism, unspecified (ICD-10 - E03.9) 05/28/2024 Obesity, unspecified (ICD-10 - E66.9) 08/27/2024 Hypothyroidism, unspecified (ICD-10 - E03.9) 08/27/2024 Morbid (severe) obesity due to excess calories (ICD-10 - E66.01) 04/11/2024 Disorder of pituitary gland, unspecified (ICD-10 - E23.7) 05/02/2024 Anxiety disorder, unspecified (ICD-10 - F41.9) 03/17/2024 Obesity, unspecified (ICD-10 - E66.9) 03/17/2024 Prediabetes (ICD-10 - R73.03) 04/13/2024 Hypothyroidism, unspecified (ICD-10 - E03.9) 03/16/2024 Hypothyroidism, unspecified (ICD-10 - E03.9) -Continue Synthroid 125mcg. We discussed we may need to decrease dose if she loses weight on Ozempic. The patient is currently on Synthroid 125 mcg without any over-correction or under-correction symptoms. - Recent lab results: TSH at 0.13, T3 at 2.9, T4 at 1.1. Plan: Maintain Synthroid 125 mcg dosage. Introduce Liothyronine 5 mcg in the afternoon to address low T3 levels and enhance energy. Pt aware to take this medication with water 1hr before or after lunch. Monitor for signs of over-correction, such as heart palpitations or increased anxiety. 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) 06/16/2024 Type 2 diabetes mellitus with hyperglycemia (ICD-10 - E11.65) 03/16/2024 Benign neoplasm of pituitary gland (ICD-10 - D35.2) 05/28/2024 Type 2 diabetes mellitus with hyperglycemia (ICD-10 - E11.65) 08/27/2024 Vitamin D deficiency, unspecified (ICD-10 - E55.9) 03/16/2024 Body mass index [BMI] 50.0-59.9, adult (ICD-10 - Z68.43) 08/27/2024 Obesity, unspecified (ICD-10 - E66.9) 03/16/2024 [place]'s syndrome, unspecified (ICD-10 - E24.9) 08/27/2024 Dietary counseling and surveillance (ICD-10 - Z71.3) 03/16/2024 Prediabetes (ICD-10 - R73.03) - A1c level at 5.5 - Patient is on Ozempic 1 mg, with Metformin discontinued due to prescription issues. Plan: Resume Metformin 500 mg instant release (considering patient's gastric bypass surgery). Continue Ozempic 1 mg. Regularly monitor blood glucose and A1c levels. 08/27/2024 Encounter for screening for lipoid disorders (ICD-10 - Z13.220) 08/27/2024 Other fatigue (ICD-10 - R53.83) 08/27/2024 Encounter for screening for other disorder (ICD-10 - Z13.89) 03/16/2024 Other Case discussed with Elizabeth Ardon NP and I agree with plan and recommendations. 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 Perform urine cortisol and salivary cortisol tests to ensure no co-secreting ACTH. Prescribe 4 mg of dexamethasone for the next suppression test. 2. Obesity:- Patient on Ozempic 1 mg, has lost some weight from 390 lbs.- Plan: Increase Ozempic to 2 mg once weekly. Monitor weight and appetite. If no improvement, consider prescribing Mounjaro with dose titration per insurance requirements. 3. Possible pituitary microadenoma:- Patient reports breast discharge, headaches, and vision problems. Possible 5-mm microadenoma on imaging.- Plan: Check prolactin levels. If elevated, initiate treatment with cabergoline or bromocriptine. Encourage patient to see an eye doctor for visual field testing. 4. Hypothyroidism:- Patient on Synthroid 125 mcg and liothyronine 5 mcg in the afternoon.- Plan: Continue current medications. Thyroid levels from March were within normal limits. 5. Vitamin B12 deficiency:- Patient on B12 injections, needs a refill.- Plan: Refill B12 vials. Patient has sufficient syringes. 6. Diabetes mellitus type 2:- Patient on metformin once daily. A1c was 5.5 in March.- Plan: Continue metformin as prescribed. Monitor A1c levels. 7. Anxiety:- Patient took Xanax for MRI.- Plan: Assess need for a neurologist based on visual field testing results and prolactin levels. If prolactin is elevated, treatment will be with medication, not surgery. 8. Hypertension:- Patient on spironolactone.- Plan: Continue spironolactone as prescribed. Monitor blood pressure, especially with the increase in Ozempic dosage. Spent 25 minutes preparing to see the patient (ex review of tests/chart), obtaining and / or reviewing separately obtained history, performing a medically appropriate examination and/or evaluation, counseling and educating the patient/family/caregive r, ordering medications, tests, or procedures, referring and communicating with other health clinical care manager, documenting clinical information in the electronic or other health record, independently interpreting results and communicating results to the patient/family/caregive r and care coordinating patient plan. Patient alert and oriented x 4 and aware of discussion noted above and in agreeance to plan in management of galactorrhea in setting of pituitary microadenoma-sending for prolactin, hypothyroidism, well controlled type 2 DM (A1C of 5.5%), obesity/weight management. 08/27/2024 Other Assessment and Plan: Obesity with metabolic PCOS-like symptomsPatient has achieved significant weight loss on Ozempic but insulin levels remain borderline elevated.Switch from Ozempic to Mounjaro for potentially better efficacy. Initiate Mounjaro: Start with 4 shots for the first month, then consider titration up to 15 mg. Monitor patient at 5 mg dose; patient to call if desiring to increase to 7.5 mg. Plan to repeat DEXA suppression test in summer. Further investigation warranted if no weight loss occurs on Mounjaro. HypothyroidismThyroid function is borderline with current medication regimen.Increase Synthroid from 125 mcg to 137 mcg daily.Continue T3 5 mcg in the afternoon, with the option to take 1-2 T3 in the afternoon if experiencing exhaustion. Pituitary microadenomaPrevious imaging revealed a small 5 mm pituitary growth with normal prolactin and ACTH levels.Schedule repeat pituitary imaging test in summer. Post-hysterectomy menopausal symptomsPatient reports night hot flashes and unusual urinary odor following complete hysterectomy.Perform urine test and test hormone levels at next visit.Monitor for UTI symptoms, severe dryness, and pain.Consider hormone patch or cream if symptoms worsen. Follow-up:Schedule a follow-up appointment to review the effectiveness of the new medication regimen and assess the response to interventions.Encourage patient to report any new or worsening symptoms. Spent 15 minutes preventative counseling patient on dietary recommendations and changes in setting of hyperglycemia- need to restrict refined sugars and processed foods and incorporate up to 150 minutes of moderate level activity weekly. Spent 25 minutes preparing to see the patient (ex review of tests/chart), obtaining and / or reviewing separately obtained history, performing a medically appropriate examination and/or evaluation, counseling and educating the patient/family/caregive r, ordering medications, tests, or procedures, referring and communicating with other health clinical care manager, documenting clinical information in the electronic or other health record, independently interpreting results and communicating results to the patient/family/caregive r and care coordinating patient plan. Patient alert and oriented x 4 and aware of discussion noted above and in agreeance to plan in management of hypothyroidism, obesity/weight management, type 2 DM/well conrolled, fatigue and vit D def. Plan Of Treatment Pending Test Test Name Order Date MRI BRAIN WITH AND WITHOUT CONTRAST 04/01 CT adrenal gland W/WO 03/16/2024 Insurance Providers Payer Name Payer Address Payer Phone Subscriber Number Group Number Insured Name Patient Relationship to Insured Coverage Start Date Coverage End Date [facility] [address] [place] [address] [id number] Moiz Martinez Spouse - patient is the spouse of the insured Medical (General) History Medical History History ICD Code Hypothyroidism, unspecified E03.9 Symptomatic postprocedural ovarian failu re E89.41 Morbid (severe) obesity due to excess ca lories E66.01 Unspecified adrenocortical insufficiency E27.40 Vitamin B12 deficiency anemia, unspecifi ed D51.9
--- OUTSIDE RECORDS SUMMARY | 2025-01-31 08:56 | XMS_ITS | Clinical Summary ---
Author Organization [facility] Address [address] [place] [address] Care Team Providers Care Physics And Astronomy Professor Name Role Phone Sample, Larry Gudino MD Unavailable [phone] Jyoti Radford MD Primary Care Provider Source Comments [facility],non-owned Affiliates and Associated Physician Practices is amultiple site organization consisting of ambulatory clinics and hospital sitesin [place], [place], [place] and [place]. This disclosure is being madepursuant to the Care Everywhere program and may not contain all information available regarding this patient. Last updated 18.[facility] Allergies Active Allergy Reactions Criticality Noted Date Comments Bupropion Psychiatric,Other Medium 05/31/2019 Codeine Anaphylaxis High 11/16/2017 Medications * This document contains information received from the source organization and may not represent a complete record from that organization. * Be aware that medications may not be up to date on this document. Alwaysverify current medications with the patient. vitamin D, ergocalciferol, (DRISDOL) 97555 units capsule 01/09/20 19 Active cyanocobalamin (Vitamin B-12) injection 01/03/20 24 Active folic acid (Folvite) 1 MG tablet Take 1 (one) tablet by mouth every morning 03/14/20 23 Active BD Insulin Syringe U/F 31G X 12/14 1 ML syringe INJECT B12 UNDER THE SKIN ONCE WEEKLY X 90 DAYS 07/05/20 23 Active spironolactone (Aldactone) 50 MG tablet Take 2 (two) tablets by mouth once daily Active melatonin 3 MG tablet Take 2 (two) tablets by mouth at bedtime Active ferrous sulfate 325 (65 FE) MG tablet Take 1 (one) tablet by mouth daily with breakfast Active Multiple Vitamins-Minerals (Super Thera Elizabeth M) TABS Take 1 (one) tablet by mouth once daily Active metFORMIN ER 24hr (Glucophage XR) 500 MG tablet Take 2 (two) tablets by mouth daily with dinner 09/11/19 25 Active fremanezumab-vfrm (Ajovy) 225 MG/1.5ML injectionIndicati ons:Chronic migraine without aura with status migrainosus, not intractable Inject 1.5 mL subcutaneously every 30 days 1.5 mL 11 10/13/19 25 Active liothyronine (Cytomel) 5 MCG tablet 11/16/19 25 Active SUMAtriptan (Imitrex) 100 MG tablet Take medication at the onset of migraine, may repeat in 2 hours 9 tablet 11 11/17/19 25 Active topiramate (Topamax) 25 MG tabletIndications :Migraine Take 1 (one) tablet by mouth at bedtime Reasons: Migraine Headache 30 tablet 3 11/17/19 25 Active Synthroid 137 MCG tablet Take 1 (one) tablet by mouth daily before breakfast Active Mounjaro 5 MG/0.5ML injection Inject 5 (five) mg subcutaneously every 7 days (once a week) 11/16/19 25 Active FLUoxetine (PROzac) 40 MG capsule Take 2 (two) capsules by mouth once daily 180 capsule 12/18/19 25 Active amphetamine-dextr oamphetamine (Adderall) 10 MG tabletIndications :Attention deficit hyperactivity disorder (ADHD), unspecified ADHD type Take 1 (one) tablet by mouth 2 times daily 60 tablet 12/18/19 25 Active Active Problems Problem Noted Date Diagnosed Date Mild sleep apnea 05/23/2024 Abnormal LFTs 04/10/2024 Amenorrhea 01/06/2024 Anxiety state 01/06/2024 Hirsutism 01/06/2024 History of Jason-en-Y gastric bypass 01/06/2024 Screening for malignant neoplasm of cervix 01/05 Vitamin B12 deficiency (non anemic) 11/19/2022 Assessment & Plan (12/11/2024 10:11 AM CDT): Labs reviewed via patient [facility] portal. Patient continued on monthly vitamin B12 supplement Prediabetes 10/18/2022 Assessment & Plan (12/11/2024 10:11 AM CDT): Conditions managed by endocrinology Continue current medication regimen Patient encouraged to upload imaging/labs to [facility] as I do not have access to records Hemorrhoids 10/14/2022 Complex atypical endometrial hyperplasia 022 Overview (12/11/2024): Added automatically from request for surgery [id number] Added automatically from request for surgery [id number] Menorrhagia with irregular cycle 03/16/2022 Overview (12/11/2024): Added automatically from request for surgery [id number] Added automatically from request for surgery [id number] Painless rectal bleeding 03/04/2022 Hypothyroidism 01/06/2022 Assessment & Plan (12/11/2024 10:11 AM CDT): Conditions managed by endocrinology Continue current medication regimen Patient encouraged to upload imaging/labs to [facility] as I do not have access to records Iron deficiency anemia 11/04/2021 Assessment & Plan (12/11/2024 10:11 AM CDT): Labs reviewed via patient class portal. Patient continues on iron supplement with vitamin-C Attention deficit hyperactivity disorder (ADHD) 10/15/2021 Assessment & Plan (12/11/2024 10:06 AM CDT): ell controlled with use of fluoxetine. ADHD is well controlled on Adderall. Continue. Patient scheduled with Psychiatry next month Neuropathy 10/15/2021 Assessment & Plan (12/11/2024 10:11 AM CDT): Migraines/neuropathy are currently unrelieved with Aimovig, topiramate, and Imitrex as needed. Patient following with Neurology. Continue Polycystic ovary syndrome 10/15/2021 Assessment & Plan (12/11/2024 10:11 AM CDT): Conditions managed by endocrinology Continue current medication regimen Patient encouraged to upload imaging/labs to [facility] as I do not have access to records 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 Body mass index (BMI) 60.0-69.9, adult Vitamin D deficiency 04/23/2019 Assessment & Plan (12/11/2024 10:11 AM CDT): Labs reviewed via patient [facility] portal. Patient continues on [id number]-[id number] vitamin-D Recurrent major depression 04/04/2019 Numbness and tingling of right face 01/04/2019 Family history of MS (multiple sclerosis) 2018 Benign positional vertigo 08/29/2018 Chronic anemia 08/29/2018 Fatigue 08/29/2018 Morbid obesity with body mass index of 50.0-59.9 in adult 08/29/2018 Sciatica of right side 08/29/2018 Resolved Problems Problem Noted Date Diagnosed Date Resolved Date Exposure to COVID-19 virus 04/10/2024 0 04/10/2024 Sore throat 04/10/2024 04/10/2024 Acute pharyngitis 01/06/2024 01/06/2024 Acute cystitis 01/06/2024 01/06/2024 Bronchitis 01/06/2024 04/10/2024 Dysuria 01/06/2024 01/06/2024 Encounter for supervision of normal first , first trimester 01/06/2024 01/06/2024 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 01/06/2024 04/10/2024 Pain in soft tissues of limb 01/06/2024 01/06/2024 Palpitations 01/06/2024 04/10/2024 care and examinat ion immediately after delivery 01/06/2024 01/06/2024 Urinary tract infection 01/06/2024 06/0 01/2024 Neuropathic pain 01/25/2019 04/10/2024 Eye twitch 01/04/2019 04/10/2024 History of PCOS 08/29/2018 01/06/2024 History of tonsillectomy 08/29/201801/2024 Clear vaginal discharge 01/23/2018 06/0 01/2024 Post depression 03/25/201604/10 Normal labor 02/11/2016 01/06/2024 Vaginal delivery 04/24/2013 01/06/2024 Threatened miscarriage 10/24/201201/05 History of surgical procedure 04/28/2011 01/06/2024 Overview (01/06/2024): BARIATRIC SURGERY STATUS Routine follow-up 08/24/2010 01/06/2024 Irregular menstrual cycle 06/08/2010 Overview (01/06/2024): IRREGULAR MENSTRUATION Lower abdominal pain 07/01/2009 024 Encounters Date Type Department Care Team Description 12/17/2024 Refill [facility] [address] [place] [address] Jyoti Radford MD MEDICATION REFILL 12/17/2024 Refill [facility] [address] [place] [address] Jacki Medel APRN-IMMIGRATION INSPECTOR MEDICATION REFILL 12/11/2024 8:00 AM CDT Office Visit [facility] [address] [place] [address] Jacki Medel APRN-IMMIGRATION INSPECTOR COLIN (generalized anxiety disorder) (Primary Dx); Mild depression; Attention deficit hyperactivity disorder (ADHD), unspecified ADHD type; Primary insomnia; Polycystic ovary syndrome; Hypothyroidism, unspecified type; Pituitary adenoma (HCC); Prediabetes; Class 3 severe obesity due to excess calories with serious comorbidity and body mass index (BMI) of 50.0 to 59.9 in adult (HCC); Chronic migraine without aura without status migrainosus, not intractable; Neuropathy; Vitamin B12 deficiency (non anemic); Iron deficiency anemia, unspecified iron deficiency anemia type; Vitamin D deficiency; Need for hepatitis B screening test; Screen for STD (sexually transmitted disease) 12/11/2024 Travel 11/28/2024 Results Follow-Up [facility] [address] [place] [address] Jacki Medel, COMPUTER TECHNOLOGY TEACHER-IMMIGRATION INSPECTOR 11/20/2024 Orders Only [facility] [address] [place] [address] Jacki Medel, COMPUTER TECHNOLOGY TEACHER-IMMIGRATION INSPECTOR 11/16/2024 2:20 PM CDT Office Visit [facility] [address] [place] [address] Jenaro Finney MD Chronic migraine without aura with status migrainosus, not intractable (Primary Dx); Pituitary microadenoma (HCC); B12 deficiency 11/12/2024 Refill [facility] [address] [place] [address] Jyoti Radford MD MEDICATION REFILL from Last 3 Months Immunizations Immunization Administration Dates Next Due INFLUENZA VACCINE, TRIV. (AF LURIA, FLUZONE TRIVALENT; 6MO+) (IIV3) 04/01/2013 FLU VACCINE QUAD IIV4 PF ID 05/19/2016, 5 FLU VACCINE TRI IIV3 SPLIT P F IM (FLUVIRIN) 04/14/2018 INFLUENZA VACCINE 06/05/2013 INFLUENZA VACCINE, QUADR. (F LUZONE; FLULAVAL; FLUARIX; AFLURIA QUADRIVALENT; 6MO+), 0.5 ML (IIV4) 07/28/2023,06/01/2022,06/12/2021,2019,04/14/2018 TDAP (7yrs+) 01/13/2016,06/05/2013 Family History Medical History Relation Name Comments Asthma Brother Multiple Sclerosis Brother Seizures Brother CAD (Coronary Artery Disease) Father Cancer - Skin, Non Melanoma Father Hypertension Father Cancer - Ovarian Maternal Grandmother Cancer - Skin, Non Melanoma Maternal Grandmother Arthritis - Rheumatoid Mother Cancer - Esophageal Mother Hypertension Mother Cancer - Colon Paternal Grandfather Other Paternal Uncle Factor 5 but pts father neg Asthma Sister Relation Name Status Comments Brother Alive Father Alive Maternal Grandfather Maternal Grandmother Mother Paternal Grandfather Paternal Grandmother Paternal Uncle Sister Alive Social History Tobacco Use Types Packs/Day Years Used Date Smoking Tobacco: Never Smokeless Tobacco: Never Tobacco Cessation:Counseling Given: No Alcohol Use Standard Drinks/Week Comments Not Currently 0 (1 standard drink = 0.6 oz pur e alcohol) mixed drinks 1-2 a month PHQ-2 Answer Date Recorded Patient Health Questionnaire-2 Score 2 12/07/2024 Comments No Sex and Gender Information Value Date Recorded Sex Assigned at Not on file Legal Sex Female 8:15 AM NON FOOD RECEIVING CLERK Gender Identity Female 06/01/2017 10:46 AM CDT Sexual Orientation Not on file Last Filed Vital Signs Vital Sign Reading Time Taken Comments Blood Pressure 112/74 12/11/2024 8:07 AM CDT Pulse 88 12/11/2024 8:07 AM CDT Temperature 36.3 C (97.3 F) 12/11/2024 8:07 AM CDT Respiratory Rate 18 12/11/2024 8:07 AM CDT Oxygen Saturation 98% 12/11/2024 8:07 AM CDT Inhaled Oxygen Concentration - - Weight 158.2 kg (348 lb 12.8 oz) 12/11/2024 8:07 AM CDT Height 172.7 cm (5' 8) 11/16/2024 2:13 PM CDT Body Mass Index 53.03 11/16/2024 2:13 PM CDT Plan of Treatment Upcoming Encounters Date Type Department Care Team (Late st Contact Info) Description 03/01/2025 11:00 AM CDT Office Visit [facility] [address] [place] [address] Jenaro Finney MD [address] [place] [id number] 06/13/2025 8:00 AM NON FOOD RECEIVING CLERK Office Visit [facility] [address] [place] [address] Jacki Medel, COMPUTER TECHNOLOGY TEACHER-IMMIGRATION INSPECTOR [address] [place] [address] Health Maintenance Due Date Last Done Comments HEPATITIS B VACCINE (1 of 3 - 19+ 3-dose series) 2004 PAP with HPV 07/07/2022 07/07/2017, 08/22/2012 COVID-19 VACCINE (3 - 2023- season) 2024 07/04/2021, 10/17/2020 INFLUENZA VACCINE (Season Ended) 2025 07/28/2023, 06/01/2022, 06/12/2021, Additional history exists DTAP/TDAP/TD VACCINES (3 - Td or Tdap) 01/12/2026 01/13/2016, 06/05/2013 ZOSTER VACCINE (1 of 2) 10/10/2035 HIV SCREENING Completed 10/05/2012 HEPATITIS C SCREENING Completed 11/19/2020 DEPRESSION SCREENING Completed 12/11/2024, 01/06/20 24 HIB VACCINE Aged Out No longer eligi ble based on patient's age to complete this topic HPV VACCINE Aged Out No longer eligi ble based on patient's age to complete this topic MENINGOCOCCAL (Group B) VACCINE SHARED DECISION-MAKING Aged Out No longer eligible based on patient's age to complete this topic MENINGOCOCCAL GROUPS A/C/Y/W VACCINE Aged Out No longer eligible based on patient's age to complete this topic PNEUMOCOCCAL VACCINE Aged Out No long er eligible based on patient's age to complete this topic Procedures Procedure Name Priority Date/Time Associated Diagnosis Comments COMPREHENSIVE METABOLIC PANEL 11/20/2024 7:23 AM CDT PAP IG LB+HPV APTIMA Routine 07/07/2017 5:14 PM NON FOOD RECEIVING CLERK Well woman exam Anovulation HIV-1 HIV-2 ANTIBODY Routine 10/05/2012 10:23 AM NON FOOD RECEIVING CLERK Supervision of normal first from Last 3 Months or Most Recently Relevant to Health Maintenance Results * COMPREHENSIVE METABOLIC PANEL (11/20/2024 7:23 AM CDT) Glucose 90 65 - 99 mg/dL [facility] Comment: Fasting reference interval BUN 15 7 - 25 mg/dL [facility] Creatinine 0.65 0.50 - 0.97 mg/dL [facility] eGFR by Cystatin C 115 > OR = 60 mL/min/1. 73m2 [facility] BUN/Creatinine Ratio SEE NOTE: (calc) [facility] Comment: Not Reported: BUN and Creatinine are within reference range. Sodium 138 135 - 146 mmol/L [facility] Potassium 4.0 3.5 - 5.3 mmol/L [facility] Chloride 101 98 - 110 mmol/L [facility] CO2 28 20 - 32 mmol/L [facility] Calcium 9.4 8.6 - 10.2 mg/dL [facility] Protein Total 7.6 6.1 - 8.1 g/dL [facility] Albumin 4.7 3.6 - 5.1 g/dL [facility] Globulin Total 2.9 1.9 - 3.7 g/dL (calc) [facility] Albumin/Globulin Ratio 1.6 1.0 - 2.5 (calc) [facility] Bilirubin Total 0.3 0.2 - 1.2 mg/dL [facility] Alkaline Phosphatase 68 31 - 125 U/L [facility] AST 19 10 - 30 U/L [facility] ALT 26 6 - 29 U/L [facility] Comment: REPORT COMMENT: FASTING:YES Test Performed at: [facility] [address] [place] [id number] TATA MARTINS MD 11/20/2024 7:23 AM CDT 11/20/2024 7:26 AM CDT us Jacki Medel COMPUTER TECHNOLOGY TEACHER-IMMIGRATION INSPECTOR LAB - CHEMISTRY ORDERABL ES Final Result [facility] [address] [place] [address] * PAP IG LB+HPV APTIMA (07/07/2017 5:14 PM NON FOOD RECEIVING CLERK) Diagnosis [facility] INSURANCE BILL Comment:NEGATIVE FOR INTRAEP ITHELIAL LESION AND MALIGNANCY. Specimen Adequacy [facility] INSURANCE BILL Comment:Satisfactory for jj luation. No endocervical component is identified. Clinician Provided ICD10 [facility] INSURANCE BILL Comment: Z01.419 N97.0 Performed by [facility] INSURANCE BILL Comment:John Martínez otechnologist (ASCP) Comment . [facility] INSURANCE BILL Note [facility] INSURANCE BILL Comment: The Pap smear is a screening test designed to aid in the detection of premalignant and malignant conditions of the uterine cervix. It is not a diagnostic procedure and should not be used as the sole means of detecting cervical cancer. Both false-positive and false-negative reports do occur. . IGLBP CPT Code Automation [facility] INSURANCE BILL Comment: This liquid based ThinPrep(R) pap test was screened with the use of an image guided system. Human papillomavirus Aptima Negative Negative [facility] INSURANCE BILL Comment: This test detects fourteen high-risk HPV types (16/18/31/33/35/39/45/ 51/52/56/58/59/66/68) without differentiation. PART OF UTERINE CERVIX / Unknown 07/07/2017 5:14 PM NON FOOD RECEIVING CLERK 07/08/2017 Narrative [facility] INSURANCE BILL - 07/12/2017 9:07 PM NON FOOD RECEIVING CLERK No. of containers..01 ThinPrep Vial Resulting Agency Comment [facility] [place] [place] [phone] [place] Janel Santana MD LAB - PATHOLOGY/CYTOLOGY OR DERABLES Final Result [facility] INSURANCE BILL [address] [place] [address] * HIV-1 HIV-2 ANTIBODY (10/05/2012 10:23 AM NON FOOD RECEIVING CLERK) HIV-1 Antibody O.D. Ratio <1.00 <1.00 [facility] INSURANCE BILL Comment:Index Value: Specime n reactivity relative to the negative cutoff. HIV-1/HIV-2 Non Reactive Non Reactive [facility] INSURANCE BILL Blood specimen (specimen) BLOOD SPECIMEN / Unknown 10/05/2012 10:23 AM NON FOOD RECEIVING CLERK 10/05/2012 2:21 PM NON FOOD RECEIVING CLERK Narrative Resulting Agency Comment [facility] [address] [facility] [phone] [place] Jeana Salcido APRN-IMMIGRATION INSPECTOR LAB - CHEMISTRY ORDERABLE S Final Result Performing Organization Address City/[facility]/ZIP Co de Phone Number [facility] INSURANCE BILL [address] [place] [address] from Last 3 Months or Most Recently Relevant to Health Maintenance Insurance ANTHEM Care Teams Physics And Astronomy Professor Relationship Specialty Start Date End Date Jyoti Radford MD [address] [place] [address] PCP - General Internal Medicine 01/06/24 Sample, [place] [address] [facility] [address] [address] [place] [id number] [place] [facility]ne[facility] 09/15/12
--- OUTSIDE RECORDS SUMMARY | 2025-01-31 08:56 | XMS_ITS | Clinical Summary ---
Author Organization [facility] Address [address] [place] [id number] Care Team Providers Care Digital Account Supervisor Name Role Phone Jyoti Radford MD Primary Care Provide r Allergies Active Allergy Reactions Criticality Noted Date Comments Bupropion Other (see comment) Medium 05/31/2019 Codeine Anaphylaxis High 11/16/2017 Medications vitamin D2, ergocalciferol, (DRISDOL) 1.25 mg capsule Take 1 capsule (1.25 mg total) by mouth every 7 days. 03/21/2024 Active Multiple Vitamins-Minera ls (SUPER THERA TRICIA M) Tab Take 1 tablet by mouth daily. Active melatonin 3 MG tablet Take 2 tablets (6 mg total) by mouth. Active ferrous sulfate, 65 mg elemental, 325 (65 FE) MG tablet Take 1 tablet (325 mg total) by mouth. Active folic acid (FOLVITE) 1 MG tablet Take 1 tablet (1 mg total) by mouth every morning. Active FLUoxetine (PROZAC) 20 MG capsule Take 1 capsule (20 mg total) by mouth daily. TAKE 1 CAPSULE BY MOUTH ONCE DAILY WITH 40 MG CAPSULE DAILY FOR TOTAL OF 60 MG A DAY Active FLUoxetine (PROZAC) 40 MG capsule Take 1 capsule (40 mg total) by mouth daily. TAKE 1 CAPSULE BY MOUTH ONCE DAILY WITH 20 MG CAPSULE DAILY FOR TOTAL OF 60 MG A DAY Active spironolactone (ALDACTONE) 50 MG tablet Take 2 tablets (100 mg total) by mouth daily. Active cyanocobalamin (B-12) 1000 MCG/ML injection Inject 1 mL (1,000 mcg total) into the skin. Active liothyronine (CYTOMEL) 5 MCG Tab Take 2 tablets (10 mcg total) by mouth daily. 08/27/2024 Active MOUNJARO 2.5 MG/0.5ML injection Inject 2.5 mg into the skin every 7 days. 08/29/2024 Active amphetamine-dex troamphetamine (ADDERALL) 10 MG tablet Take 1 tablet (10 mg total) by mouth 2 (two) times daily. 08/02/2024 Active SYNTHROID 137 MCG tablet Take 1 tablet (137 mcg total) by mouth every morning. 08/27/2024 Active metFORMIN (GLUCOPHAGE) 500 MG tablet Take 1 tablet (500 mg total) by mouth daily. 06/11/2024 Active cyclobenzaprine (FLEXERIL) 10 MG tablet Take 1 tablet (10 mg total) by mouth 3 (three) times daily as needed for Muscle Spasms. 16 tablet 09/04/2024 Active naproxen (NAPROSYN) 500 MG tablet Take 1 tablet (500 mg total) by mouth 2 (two) times daily with meals. 30 tablet 09/04/2024 Active Active Problems Problem Noted Date Diagnosed Date Abnormal LFTs 04/10/2024 Amenorrhea 01/06/2024 Anxiety state 01/06/2024 Hirsutism 01/06/2024 History of Jason-en-Y gastric bypass 01/06/2024 Vitamin B12 deficiency (non anemic) 11/19/2022 Prediabetes 10/18/2022 Hemorrhoids 10/14/2022 Complex atypical endometrial hyperplasia 022 Overview (04/20/2024): Added automatically from request for surgery [id number] Menorrhagia with irregular cycle 03/16/2022 Overview (04/20/2024): Added automatically from request for surgery [id number] Painless rectal bleeding 03/04/2022 Hypothyroidism 01/06/2022 Iron deficiency anemia 11/04/2021 Attention deficit hyperactivity disorder (ADHD) 10/15/2021 Neuropathy 10/15/2021 Polycystic ovary syndrome 10/15/2021 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 Body mass index (BMI) 60.0-69.9, adult Vitamin D deficiency 04/23/2019 Recurrent major depression 04/04/2019 Family history of MS (multiple sclerosis) 2018 Numbness and tingling of right face 01/04/2019 Benign positional vertigo 08/29/2018 Chronic anemia 08/29/2018 Fatigue 08/29/2018 Morbid obesity with body mass index of 50.0-59.9 in adult 08/29/2018 Sciatica of right side 08/29/2018 Resolved Problems Problem Noted Date Diagnosed Date Resolved Date Screening for malignant neoplasm of cervix 01/06/2024 04/23/2024 Immunizations Immunization Administration Dates Next Due Fluzone Intradermal Quad (IIV4) 05/19/2016,05/01 Influenza (Generic) 04/14/2018,06/05/2013,2012 Influenza Adult (Generic) 07/28/2023,06/01/2022, 06/12/2021,04/29/2020 Tdap (Generic) 01/13/2016,06/05/2013 Family History Medical History Relation Comments Asthma Brother Depression Brother COPD Father Cancer Father Skin Heart Disease Father Hyperlipidemia Father Hypertension Father Stroke Father Cancer Maternal Grandfather Pancreatic Cancer Maternal Grandmother Skin, uteri ne Miscarriages / Stillbirths Maternal Grandmother Alcohol Abuse Maternal Uncle 1 Cancer Maternal Uncle 2 Pancreatic Early Hearing Loss Maternal Uncle 2 Arthritis Mother Cancer Mother Esophageal & ova tad Depression Mother Hypertension Mother Mental Health Mother Stroke Mother Hyperlipidemia Paternal Grandmother Hypertension Paternal Grandmother Stroke Paternal Grandmother Asthma Sister Depression Sister Relation Status Comments Brother Father Alive Maternal Grandfather Maternal Grandmother Maternal Uncle 1 Maternal Uncle 2 Mother Paternal Grandmother Sister Social History Tobacco Use Types Packs/Day Years Used Date Smoking Tobacco: Never Passive Smoke Exposure: Never Smokeless Tobacco: Never Tobacco Cessation:Counseling Given: Yes Alcohol Use Standard Drinks/Week Comments Not Currently 0 (1 standard drink = 0.6 oz pur e alcohol) Comments Unknown Sex and Gender Information Value Date Recorded Sex Assigned at Female 09/04/2024 11:34 AM TRIAL JUDGE Legal Sex Female 2:15 PM CDT Gender Identity Not on file Sexual Orientation Not on file Last Filed Vital Signs Vital Sign Reading Time Taken Comments Blood Pressure 113/71 09/04/2024 3:14 PM TRIAL JUDGE Pulse 88 09/04/2024 3:14 PM TRIAL JUDGE Temperature 36.8 C (98.3 F) 09/04/2024 11:57 AM TRIAL JUDGE Respiratory Rate 20 09/04/2024 3:14 PM TRIAL JUDGE Oxygen Saturation 100% 09/04/2024 3:14 PM TRIAL JUDGE Inhaled Oxygen Concentration - - Weight 161.1 kg (355 lb 2.6 oz) 025 11:57 AM TRIAL JUDGE Height 170.2 cm (5' 7) 09/04/2024 11:5 7 AM TRIAL JUDGE Body Mass Index 55.63 09/04/2024 11:57 AM TRIAL JUDGE Plan of Treatment Health Maintenance Due Date Last Done Comments Annual Physical 1988 Hepatitis C 10/10/2003 Hepatitis B Vaccines (1 of 3 - 19+ 3-dose series) 2004 COVID-19 Vaccine (2023-2 5 season) 2024 07/04/2021, 10/17/2020 PHQ-2 (Physician [place]) 08/01/2024 DTaP, Tdap and Td Vaccines ( 3 - Td or Tdap) 01/12/2026 01/13/2016, 06/05/2013 HPV Vaccines Aged Out No longer eligi ble based on patient's age to complete this topic Meningococcal B Vaccine Aged Out No l onger eligible based on patient's age to complete this topic Meningococcal Vaccine Aged Out No chet praveena eligible based on patient's age to complete this topic Pneumococcal Vaccine: Pediatrics (0 to 5 Years) and At-Risk Patients (6 to 49 Years) Aged Out No longer eligible b ased on patient's age to complete this topic RSV Immunizations Under 20 Months Aged Out No longer eligible b ased on patient's age to complete this topic Insurance [facility] Care Teams Digital Account Supervisor Relationship Specialty Start Date End Date Jyoti Radford MD [address] [address] PCP - General INTERNAL MEDICINE 04/20/24
--- OUTSIDE RECORDS SUMMARY | 2025-01-31 08:56 | XMS_ITS | Encounter Summary ---
Author Organization [facility] Address [address] [place] [address] Care Team Providers Care Lead Former Name Role Phone Lona Crandall MD Primary Care Provider Sample, Larry Gudino MD Unavailable [phone] Jyoti Radford MD Primary Care Provider Encounter Details Date Type Department Care Team (Late Contact Info) Description 10/31/2014 Therapy Visit 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 Neurosciences [address] [facility] [address] [place] [address] Jenaro Finney MD [address] [facility] [address] [place] [id number] 06/13/2025 8:00 AM JUMPBASTING FACING BASTER Office Visit [facility] - Family Medicine [address] [place] [address] Jacki Medel, PRIME BROKER-RETAIL SERVICE LEAD MERCHANDISER [address] [facility] [address] [place] [address] documented as of this encounter Visit Diagnoses Not on filedocumented in this encounter Care Teams Lead Former Relationship Specialty [place] [address] [facility] [facility] [address] [place] [address] PCP - General Family Medicine 08/22/12 01/05/24 Jyoti Radford MD [address] [place] [address] PCP - General Internal Medicine 01/06/24 [place] [address] [address] Internal Communications Writer Obstetrics and Gynecology 09/15/12 documented as of this encounter
--- OUTSIDE RECORDS SUMMARY | 2025-01-31 08:56 | XMS_ITS ---
Author Organization [facility] Address [address] [place] [address] Care Team Providers Care Multi Township Assessor Name Role Phone Violeta Mendez Primary Care Provider REASON FOR VISIT lab review/3 month fu Encounters Encounter Location Date Provider Diagnosis [facility] - Violeta Mendez [address] [place] [address] 12/25/2024 Violeta Mendez Plan Of Treatment No Information Progress Notes * Julianna ARNOLDDOB:1985 (39 yo F)Acc No.[id number]:12/25/2024 Progress Notes Patient: Julianna BUENO Provider: Cathie Mendez MD :1985 A ge:39 Y S ex:Female Date:12/25/2024 Address:[address] [place], [place] [id number] Subjective: * Chief Complaints: * 1 . Lab review/3 month fu. * Medical History: Objective: * Vitals: Assessment: Plan: * Treatment: * Billing Information: * Visit Code: * Procedure Codes: * Electronic signature of Kavon Mendez MD on 01/31/2025 at 08:56 AM CDT Sign off status: Pending * Provider: Cathie Mendez MD Date: 12/25/2024 Generated for Ellie johnson/Chang/eTkanesmitting on: 01/31/2025 08:56 AM CDT
--- OUTSIDE RECORDS SUMMARY | 2025-01-31 08:56 | XMS_ITS | Data Portability ---
Author Organization [place] [facility] - IP Address [address] [place] [address] Care Team Providers Care Structured Cabling Technician Name Role Phone GERMAN DEE OTHER VASHTI SHELDON Primary Care Provider [phone] Assessment No assessment recorded. Plan of Treatment Reminders Order Date Submit Date Provider Last Modified By Organization Details Last Modified Time Details Appointments None recorded. Lab pap, IG + HR HPV 2022 023 MARIE [facility]), [address] [place], [address], 16:12:48 culture, urine 2021 022 HEMLOCK [facility]), [address] [place], [address], 14:37:54 Referral gynecologic oncologist referral 2021 022 MARIE Not available 11:45:29 Procedures None recorded. Surgeries None recorded. Imaging US, pelvis 2021 022 [email or web address] Not available 10:23:51 Medication Orders None recorded. Patient TargetsNo targets recorded. Patient Instructions Encounter Date Encounter Id Patient Instructions Last Modified By Organization Details Last Modified Time 01/05/2022 [id number] body mass index: care instructions [email or web address] Not available 01/05/2022 20:40:05 learning about healthy weight Not available 01/05/2022 20:40:05 02/25/2022 [id number] learning about future when you are overweight [id number] Not available 02/25/2022 15:55:52 learning about planning for future [email or web address] Not available 02/25/2022 15:55:52 12/16/2022 [id number] body mass index: care instructions oiyeaeimlom89 Not available 12/16/2022 11:51:41 learning about healthy weight [email or web address] Not available 12/16/2022 11:51:41 breast self-exam : care instructions Not available 12/16/2022 11:51:41 A healthy lifestyle: care instructions [id number] Not available 12/16/2022 11:51:41 continue exercise [email or web address] Not avai lable 12/16/2022 11:51:41 calcium and vitamin D combination [id number] Not available 12/16/2022 11:51:41 12/28/2023 [id number] body mass index: care instructions [id number] Not available 12/28/2023 09:49:07 learning about healthy weight [email or web address] Not available 12/28/2023 09:49:06 breast self-exam : care instructions [email or web address] Not available 12/28/2023 09:49:07 A healthy lifestyle: care instructions [id number] Not available 12/28/2023 09:49:07 continue exercise [email or web address] Not avai lable 12/28/2023 09:49:07 calcium and vitamin D combination [email or web address] Not available 12/28/2023 09:49:07 01/09/2025 [id number] body mass index: care instructions [id number] Not available 01/09/2025 19:09:56 learning about healthy weight [id number] Not available 01/09/2025 19:09:56 breast self-exam : care instructions [id number] Not available 01/09/2025 19:09:55 A healthy lifestyle: care instructions [id number] Not available 01/09/2025 19:09:56 continue exercise [email or web address] Not avai lable 01/09/2025 19:09:55 calcium and vitamin D combination [email or web address] Not available 01/09/2025 19:09:56 Reason for Referral Gynecologic 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 Referring Physician: Rima Santana, TOY MECHANIC, Encounter Date: 02/25/2022 Results Created Date Observation Date Name Description Value Unit Range Abnormal Flag Note LastModifiedBy Organization Detail LastModifiedTime 12/16/19 22 12/17/2021 IGP, SUSAN HPV16 /18 HPV other HR types Negati ve negati ve Not Available [facility] ([facility]) [address] [place], [address], 12/18/2021 16:38:06 12/16/19 22 12/17/2021 IGP, SUSAN HPV16 /18 HPV 16 Negati ve negati ve Not Available [facility] ([facility]) [address] [place], [address], 12/18/2021 16:38:06 12/16/19 22 12/17/2021 IGP, SUSAN HPV16 /18 HPV 18 Negati ve negati ve This nucle ic acid ampli ficat ion test detec ts fourt een high- risk HPV types : HPV16 , HPV18 and twelv e other high- risk types (31,3 3,35, 39,45 ,51,5 2,56, 58,59 ,66,6 8) witho ut diffe renti ation . Not Available [facility] ([facility]) [address] [place], [address], 12/18/2021 16:38:06 12/16/19 22 12/18/2021 IGP, SUSAN HPV16 /18 diagnosis: Commen t NEGAT RITCHIE FOR INTRA EPITH ELIAL LESIO N OR YOVANI MÉNDEZ . Not Available [facility] ([facility]) [address] [place], [address], 12/18/2021 16:38:06 12/16/19 22 12/18/2021 IGP, SUSAN HPV16 /18 specimen adequacy: Commen t Satis facto ry for evalu ation . No endoc ervic al compo nent is ident ified . Not Available [facility] ([facility]) [address] [place], [address], 12/18/2021 16:38:06 12/16/19 22 12/18/2021 IGP, SUSAN HPV16 /18 clinician provided ICD10: Camryn manuel Z12.4 Not Available [facility] ([facility]) [address] [place], [address], 12/18/2021 16:38:06 12/16/19 22 12/18/2021 IGP, SUSAN HPV16 /18 performed by: Camryn henderson, Cytomar manuel (ASCP ) Not Available [facility] ([facility]) [address] [place], [address], 12/18/2021 16:38:06 12/16/19 22 12/18/2021 IGP, SUSAN HPV16 /18 . . Not Available [facility] ([facility]) [address] [place], [address], 12/18/2021 16:38:06 12/16/19 22 12/18/2021 IGP, SUSAN HPV16 /18 note: Camryn manuel The Pap smear is a scree neva test desig anastasia to aid in the detec tion of vidhya ligna nt and malig nant condi tions of the uteri ne cervi x. It is not a diagn ostic proce dure and shoul d not be used as the sole means of detec ting cervi joaquina cance r. Both false -posi tive and false -nega tive repor ts do occur . Not Available [facility] ([facility]) [address] [place], [address], 12/18/2021 16:38:06 12/16/19 22 12/18/2021 IGP, SUSAN HPV16 /18 test methodology: Commen t This liqui d based ThinP rep(R ) pap test was emma oconnor with the use of an image guide renate eubanks Not Available [facility] ([facility]) [address], [place], [address], 12/18/2021 16:38:06 02/26/20 22 02/27/2022 URINE CULTU RE, ROUTI NE urine culture, routine Final report abnormal Not Available [facility] ([facility]) [address], [place], [address], 02/27/2022 14:37:52 02/26/20 22 02/27/2022 URINE CULTU RE, ROUTI NE result 1 Commen t abnormal Beta hemol ytic Strep tococ cus, group B 50,00 0-100 ,000 colon y formi ng units per mL Penic illin and ampic illin are drugs of choic e for treat ment of beta- hemol ytic strep tococ joaquina infec tions . Susce ptibi lity testi ng of penic illin s and other beta- lacta m agent s appro moe by the FDA for treat ment of beta- hemol ytic strep tococ joaquina infec tions need not be perfo rmed natalya rodriguezau se nonsu scept ible isola duncan are extre jayesh rare in any beta- hemol ytic strep tococ cus and have not been repor nemo for Strep tococ cus pyoge darrell (grou p A). (CLSI ) Not Available [facility] ([facility]) [address], [place], [address], 02/27/2022 14:37:52 12/17/19 23 12/17/2022 IGP, SUSAN HPV16 /18 HPV other HR types Negati ve negati ve Not Available [facility] ([facility]) [address] [place], [address], 12/23/2022 16:12:48 12/17/19 23 12/17/2022 IGP, SUSAN HPV16 /18 HPV 16 Negati ve negati ve Not Available [facility] ([facility]) [address], [place], [address], 12/23/2022 16:12:48 12/17/19 23 12/17/2022 IGP, SUSAN HPV16 /18 HPV 18 Negati ve negati ve This nucle ic acid ampli ficat ion test detec ts fourt een high- risk HPV types : HPV16 , HPV18 and twelv e other high- risk types (31,3 3,35, 39,45 ,51,5 2,56, 58,59 ,66,6 8) witho ut diffe renti ation . Not Available [facility] ([facility]) [address], [place], [address], 12/23/2022 16:12:48 12/17/19 23 12/23/2022 IGP, SUSAN HPV16 /18 diagnosis: Camryn VALENZUELA IVE FOR INTRA EPITH ELIAL LESIO N OR YOVANI MÉNDEZ . Not Available [facility] ([facility]) [address], [place], [address], 12/23/2022 16:12:48 12/17/19 23 12/23/2022 IGP, SUSAN HPV16 /18 specimen adequacy: Camryn manuel Satis facto ry for evalu ation . No endoc ervic al compo nent is ident ified . Not Available [facility] ([facility]) [address], [place], [address], 12/23/2022 16:12:48 12/17/19 23 12/23/2022 IGP, SUSAN HPV16 /18 clinician provided ICD10: Camryn manuel Z12.4 Z11.3 Z11.5 1 Not Available [facility] ([facility]) [address], [place], [address], 12/23/2022 16:12:48 12/17/19 23 12/23/2022 IGP, SUSAN HPV16 /18 performed by: Camryn ferrell, Cytot echno jluis t (ASCP ) Not Available [facility] ([facility]) [address], [place], [address], 12/23/2022 16:12:48 12/17/19 23 12/23/2022 IGP, SUSAN HPV16 /18 . . Not Available [facility] ([facility]) [address], [place], [address], 12/23/2022 16:12:48 12/17/19 23 12/23/2022 IGP, SUSAN HPV16 /18 note: Camryn t The Pap smear is a scree neva test desig anastasia to aid in the detec tion of vidhya ligna nt and malig nant condi tions of the uteri ne cervi x. It is not a diagn ostic proce dure and shoul d not be used as the sole means of detec ting cervi joaquina cance r. Both false -posi tive and false -nega tive repor ts do occur . Not Available [facility] ([facility]) [address], [place], [address], 12/23/2022 16:12:48 12/17/19 23 12/23/2022 IGP, SUSAN HPV16 /18 test methodology: Camryn manuel This liqui d based ThinP rep(R ) pap test was scree anastasia with the use of an image guide renate systsherif m. Not Available [facility] ([facility]) [address], [place], [address], 12/23/2022 16:12:48 01/06/20 22 01/05/2022 ultra sound image s RAD [id number] [employer] [id number] 01/18/2022 13:53:44 Result Notes None recorded. Problems Name Problem SNOMED Code Status Onset Date Resolution Date Notes Provider Name and Address Organization Details Recorded Time Poojaar y fernandezulamar orpablo inferelvi ity [id number] Completed 201412/16/2022 Rima Santana , DO [address] [place] [address] [address] [facility] [place], [address] , [place] [facility] 3 11:39:46 Postpart um depressi on [id number] Active 2015 Not Available [facility] 16:49:12 Female infertil ity associat ed with anovulat ion [id number] Completed 201412/16/2022 Rima Santana , DO [address] [place] [address] [address] [place] [place], [address] , [place] [facility] 3 11:39:36 Secondar y physiolo gic amenorrh ea 51431828 Completed 201912/16/2022 Rima Santana , DO [address] [place] [address] [address] [place], [place], [address] , [place] [facility] 3 11:40:01 Menometr orrhagia 996390610 Completed 202112/16/2022 Rima Santana , [address] [place], [place], [address] , [place] [facility] 3 11:39:39 Polyp of corpus uteri 83596879 Completed 202112/16/2022 full cavity of endometr ial polyps-- - removed Rima Santana , [address] [place], [place], [address] , [place] [facility] 3 11:39:43 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 Procedures Surgical History Date Name Laterality Status Provider Name and Address Organization Details Recorded Time 2022 Date of Last Pap Smear completed Rima manuel, [address] [place], [address], [place] [facility] 3 18:21:14 2021 total abdominal hysterectomy with bilateral salpingo-oophorectomy completed Rima manuel, [address] [place], [address], [place] [facility] 2 20:52:08 2021 hysteroscopy with biopsy completed Rima manuel, [address] [place], [address], [place] [facility] 2 12:57:04 2021 colonoscopy completed Rima manuel [address] [place], [address], [place] [facility] 2 14:27:21 2021 esophagogastroduodenoscopy completed Doyle manuel, [address] [place], [address], [place] [facility] 2 14:27:40 2021 Dilation and Curettage completed Delores Alexander [place] [facility] 3 10:58:09 2021 Total Laparoscopic Hysterectomy completed Delores Alexander [place] [facility] 3 10:58:10 2021 Colonoscopy completed Delores ED[facility] 3 10:58:10 2018 mixed nerve conduction study completed Rima manuel DO [address] [place], [address], [place] [facility] 9 14:22:25 2007 bypass of stomach completed Heaven EDDY - [facility] 9 14:14:57 2007 Other completed Delores Alexander [place] [facility] 3 10:58:09 2002 Tonsillectomy completed Heaven EDDY - [facility] 9 14:05:49 2002 Appendectomy completed Delores EDDY - [facility] 3 10:58:09 2002 Nowata teeth completed Delores EDDY - [facility] 3 10:58:10 Cholecystectomy completed Heaven EDDY - [facility] 9 14:05:21 open enlargement of atrial septal defect completed Heaven EDDY - [facility] 9 14:34:23 Imaging Results None recorded. Procedure Notes None recorded. Medical Equipment None Reported. Allergies Allergen ID Allergen Name Allergen Category Reaction Reaction Severity Criticality Documentation Date Start Date Code Code System Note Provider Name and Address Organization Details Recorded Time 90565 bupropion Not available Not available Not available [facility] 01/09/20252018 27986 RxNorm unrec ogniz ed react ion (text : Psych iatri c, code: 42186 002) (from exter nal sourc e) unrec ogniz ed react ion (text : Other , code: 89889 07) (from exter nal sourc e) Rima manuel DO [address] [place], [address], [place] [facility] 5 19:10:19 9709 ibuprofen medicatio n other Not available Not available 07/13/2018 5640 RxNorm React ion: Gastr itis; Rima Manrique Betina t, DO [address] [facility] [address] [place], [address], [place] [facility] 9 11:23:46 9718 codeine medicatio n anaphylax is Not available Not available 07/13/2018 2670 RxNorm Rima Manrique Betina t, DO [address] [place], [address], [place] [facility] 9 11:23:42 Medications Name Sig Start Date Stop Date Status Note LastModified by Organization Details LastModified Time fluoxetine 40 mg capsule TAKE 2 CAPSULE BY MOUTH TWICE A DAY active Not Available Not Available No t Available cyclobenzap rine 10 mg tablet TAKE 1 TABLET BY MOUTH THREE TIMES A DAY NEEDED FOR MUSCLE SPASMS 01/06 completed Not Available Not Available Not Available amoxicillin 500 mg capsule TAKE 1 CAPSULE BY MOUTH THREE TIMES A DAY 12/15 completed Not Available Not Available Not Available medroxyprog esterone 10 mg tablet TAKE 1 TABLET BY MOUTH EVERY DAY FOR 30 DAYS 12/13 completed Not Available Not Available Not Available metformin 500 mg tablet TAKE 1 TABLET BY MOUTH EVERY DAY active Not Available Not Available No t Available trazodone 50 mg tablet 07/30 completed Not Available Not Available Not Available azithromyci n 250 mg tablet TAKE 2 TABLETS BY MOUTH TODAY, THEN TAKE 1 TABLET DAILY FOR 4 DAYS DIRECTED 12/27 completed Not Available Not Available Not Available sumatriptan 100 mg tablet TAKE MEDICATIO N AT THE ONSET OF MIGRAINE, MAY REPEAT IN 2 HOURS active Not Available Not Available No t Available dextroamphe tamine-amph etamine 10 mg tablet TAKE 1 (ONE) TABLET BY MOUTH 2 TIMES DAILY active Not Available Not Available No t Available Synthroid 100 mcg tablet 01/09 completed Not Available Not Available Not Available sertraline 100 mg tablet TAKE 2 TABLETS BY MOUTH EVERY DAY 12/15 completed Not Available Not Available Not Available sumatriptan 50 mg tablet 1 TABLET AT THE ONSET OF MIGRAINE MAY REPEAT AFTER 2 HOURS ONCE IN A 24 HOUR PERIOD IF NEEDED 01/09 completed Not Available Not Available Not Available topiramate 25 mg tablet TAKE 1 (ONE) TABLET BY MOUTH AT BEDTIME REASONS: MIGRAINE HEADACHE 01/06 completed Not Available Not Available Not Available hydroxyzine HCl 50 mg tablet TAKE 1/2 1 TABLET BY MOUTH NIGHTLY NEEDED FOR INSOMNIA 10/01 completed Not Available Not Available Not Available liothyronin e 5 mcg tablet TAKE 1-2 TABLETS BY MOUTH ON AN EMPTY STOMACH ONCE A DAY AROUND NOON 90 DAYS active Not Available Not Available No t Available amoxicillin 500 mg tablet TAKE 1 TABLET BY MOUTH 3 TIMES A DAY FOR 10 DAYS 12/15 completed Not Available Not Available Not Available hydrocortis one 2.5 % topical cream with perineal applicator APPLY TOPICALLY A THIN LAYER TO AFFECTED AREA TWICE A DAY TO 4 TIMES A DAY NEEDED 01/06 completed Not Available Not Available Not Available alprazolam 0.5 mg tablet TAKE UP TO 2 TABLETS ORALLY NEEDED 30 MINUTES PRIOR TO IMAGING active Not Available Not Available No t Available amoxicillin 875 mg tablet TAKE 1 TABLET BY MOUTH EVERY 12 HOURS FOR 7 DAYS 12/13 completed Not Available Not Available Not Available alprazolam 0.25 mg tablet TAKE 1 TABLET BY MOUTH TWICE A DAY NEEDED 10/01 completed Not Available Not Available Not Available dexamethaso ne 1 mg tablet active Not Available Not Available Not Available meclizine 25 mg tablet 07/30 completed Not Available Not Available Not Available benzonatate 100 mg capsule TAKE 1 CAPSULE BY MOUTH THREE TIMES A DAY NEEDED FOR COUGH 01/09 completed Not Available Not Available Not Available Unithroid 50 mcg tablet 12/13 completed Not Available Not Available Not Available cyanocobala min (vit B-12) 1,000 mcg/mL injection solution INJECT 1 ML INTRAMUSC ULARLY ONCE A WEEK active Not Available Not Available No t Available metformin 1,000 mg tablet Take 1 tablet twice a day by oral route. 10/01 completed Not Available Not Available Not Available levothyroxi ne 125 mcg tablet TAKE 1 TABLET BY MOUTH EVERY DAY FOR 90 DAYS 01/09 completed Not Available Not Available Not Available triamcinolo ne acetonide 0.1 % topical ointment APPLY 3 TIMES A DAY UNTIL DIRECTED TO STOP 12/15 completed Not Available Not Available Not Available dexamethaso ne 4 mg tablet PLEASE SEE ATTACHED FOR DETAILED DIRECTION S 01/09 completed Not Available Not Available Not Available progesteron e micronized 200 mg capsule TAKE 1 CAPSULE BY MOUTH EVERYDAY AT BEDTIME 12/15 completed Not Available Not Available Not Available fluoxetine 10 mg capsule TAKE 1 CAPSULE BY MOUTH ONCE DAILY WITH 20 MG CAPSULE FOR TOTAL OF 30 MG A DAY 12/13 completed Not Available Not Available Not Available folic acid 1 mg tablet TAKE 1 TABLET BY MOUTH EVERY DAY IN THE MORNING active Not Available Not Available No t Available hydroxyzine HCl 25 mg tablet TAKE 1 TABLET BY MOUTH DAILY AT BEDTIME NEEDED FOR INSOMNIA 10/01 completed Not Available Not Available Not Available Unithroid 25 mcg tablet TAKE 1 TABLET BY MOUTH EVERY DAY FOR 30 DAYS 12/13 completed Not Available Not Available Not Available ergocalcife rol (vitamin D2) 1,250 mcg (50,000 unit) capsule TAKE 1 CAPSULE BY MOUTH WEEKLY active Not Available Not Available No t Available ibuprofen 600 mg tablet TAKE 1 TABLET BY MOUTH EVERY 6 HOURS NEEDED FOR PAIN 12/15 completed Not Available Not Available Not Available Unithroid 75 mcg tablet TAKE 1 TABLET BY MOUTH EVERY DAY IN THE MORNING 12/27 completed Not Available Not Available Not Available fluoxetine 20 mg capsule TAKE 1 CAPSULE BY MOUTH ONCE DAILY WITH 40 MG CAPSULE DAILY FOR TOTAL OF 60 MG A DAY 01/09 completed Not Available Not Available Not Available metformin ER 500 mg tablet,exte nded release 24 hr TAKE 1 TABLET BY MOUTH EVERY DAY AT DINNER FOR 90 DAYS 01/06 completed Not Available Not Available Not Available sertraline 50 mg tablet 07/30 completed Not Available Not Available Not Available dextroamphe tamine-amph etamine 5 mg tablet TAKE 1 TABLET BY MOUTH ONCE DAILY IN THE MORNING THEN 1 TABLET IN EARLY AFTERNOON 12/27 completed Not Available Not Available Not Available naproxen 500 mg tablet TAKE 1 TABLET BY MOUTH TWICE A DAY WITH MEALS 01/06 completed Not Available Not Available Not Available spironolact one 50 mg tablet TAKE 2 TABLETS BY MOUTH EVERY DAY active Not Available Not Available No t Available diazepam 5 mg tablet 07/30 completed Not Available Not Available Not Available progesteron e micronized 100 mg capsule TAKE 1 CAP BY MOUTH AT BEDTIME FOR 10 DAYS FOR IRREGULAR CYCLES. MENSES SHOULD START WITHIN 30 DAYS 12/15 completed Not Available Not Available Not Available oxycodone 5 mg tablet 12/16 completed Not Available Not Available Not Available Synthroid 137 mcg tablet TAKE 1 TABLET BY MOUTH EVERY DAY IN THE MORNING ON EMPTY STOMACH FOR 90 DAYS active Not Available Not Available No t Available nitrofurant oin monohydrate /macrocryst als 100 mg capsule TAKE 1 CAPSULE BY MOUTH TWICE A DAY WITH FOOD 01/06 completed Not Available Not Available Not Available Unithroid 12/16 completed Not Available Not Available Not Available aripiprazol e 2 mg tablet TAKE 1 TABLET BY MOUTH EVERY DAY active Not Available Not Available No t Available FerraPlus 90 90 mg-1 mg-12 mcg-120 mg-50mg tablet 10/01 completed Not Available Not Available Not Available Zatean-Pn DHA 27 mg iron-1 mg-300 mg capsule TAKE ONE CAPSULE BY MOUTH ONCE DAILY 12/31 completed Not Available Not Available Not Available Vitamin D3 125 mcg (5,000 unit) tablet active Not Available Not Available Not Available GOVERNMENT AFFAIRS MANAGER-PNV-DHA 28 mg iron-1 mg-200 mg capsule TAKE ONE CAPSULE BY MOUTH ONCE DAILY 12/15 completed Not Available Not Available Not Available BD Insulin Syringe Ultra-Fine 1 mL 31 gauge x 5/16 INJECT B12 UNDER THE SKIN ONCE WEEKLY X 90 DAYS 12/27 completed Not Available Not Available Not Available Ozempic 0.25 mg or 0.5 mg (2 mg/1.5 mL) subcutaneou s pen injector INJECT 0.5 MG EVERY WEEK BY SUBCUTANE OUS ROUTE AT DINNER FOR 90 DAYS. 12/16 completed Not Available Not Available Not Available Fluzone Quad 60 mcg (15 mcg x 4)/0.5 mL intramuscul ar susp. 10/01 completed Not Available Not Available Not Available Ajovy 225 mg/1.5 mL subcutaneou s auto-inject or INJECT 1.5 ML SUBCUTANE OUSLY EVERY 30 DAYS active Not Available Not Available No t Available Ozempic 1 mg/dose (4 mg/3 mL) subcutaneou s pen injector INJECT 1 MG SUBCUTANE OUSLY ONCE A WEEK 90 DAYS 01/09 completed Not Available Not Available Not Available Ozempic 2 mg/dose (8 mg/3 mL) subcutaneou s pen injector active Not Available Not Available Not Available Mounjaro 7.5 mg/0.5 mL subcutaneou s pen injector INJECT 7.5MG UNDER THE SKIN ONCE A WEEK DIRECTED active Not Available Not Available No t Available Mounjaro 5 mg/0.5 mL subcutaneou s pen injector INJECT 0.5ML SUBCUTANE OUS WEEKLY 90 DAYS 01/09 completed Not Available Not Available Not Available Mounjaro 2.5 mg/0.5 mL subcutaneou s pen injector INJECT 0.5ML SUBCUTANE OUS WEEKLY 30 DAYS 01/09 completed Not Available Not Available Not Available Ozempic 0.25 mg or 0.5 mg (2 mg/3 mL) subcutaneou s pen injector INJECT 0.5MG UNDER THE SKIN EVERY WEEK FOR 30 DAYS. 12/25 completed Not Available Not Available Not Available Vitals Date Recorded Body height Body mass index (BMI) Body weight Systolic And Diastolic Provider Name and Address Organization Details Last Updated DateTime 12/16/2022 168.91 cm 57.7 kg/m2 107354.03 g 112/72 mm[Hg] Heaven Carpenter In [facility] 12/16/2022 11:11:32 Date Recorded Body weight Body mass index (BMI) Body height Systolic And Diastolic Provider Name and Address Organization Details Last Updated DateTime 12/28/2023 418221.38 g 60.4 kg/m2 168.91 cm 108/70 mm[Hg] Heaven Carpenter In [facility] 12/28/2023 09:31:43 Date Recorded Body mass index (BMI) Body height Provider Name and Address Organization Details Last Updated DateTime 01/05/2022 62.8 kg/m2 168.91 cm Rima Santana, DO [address] [facility] [address] [place] [address], [place], [address], SURJIT Carpenter In [facility] 02/25/2022 14:01:33 Date Recorded Body weight Systolic And Diastolic Provider Name and Address Organization Details Last Updated DateTime 01/05/2022 660132.7 g 110/72 mm[Hg] Heaven Weathers ates In [facility] 01/05/2022 16:04:47 Date Recorded Body weight Body mass index (BMI) Body height Systolic And Diastolic Provider Name and Address Organization Details Last Updated DateTime 01/09/2025 765100.52 g 55.4 kg/m2 168.28 cm 116/70 mm[Hg] Heaven Carpenter In [facility] 01/09/2025 13:50:02 Date Recorded Body height Body mass index (BMI) Body weight Systolic And Diastolic Provider Name and Address Organization Details Last Updated DateTime 02/25/2022 168.91 cm 62 kg/m2 639145.02 g 110/64 mm[Hg] Heaven Carpenter In [facility] 02/25/2022 15:40:11 Social History Question Answer Notes LastModified by ScriptPad ion Details LastModified Time Tobacco Smoking Status Never Smoker Not Available [facility] 06/03/2020 03:42:13 Is Blood Transfusion Acceptable In An Emergency? Yes [email or web address] Information not available 12/16/2022 What Is Your Level Of Caffeine Consumption? Moderate Coffee, Tea, Soda [email or web address] Information not available 12/16/2022 Which Illicit Or Recreational Drugs Have You Used? Marijuana Edibles NOT RECREATIONAL [email or web address] Information not available 02/25/2022 Have There Been Any Changes To Your Family Or Social Situation? Yes [email or web address] Information not available 12/16/2022 What Was The Date Of Your Most Recent Tobacco Screening? 01/09/2025 [email or web address] Information not available 01/09/2025 Do You Have Any Pets? No [email or web address] Information not available 12/16/2022 Do You Use Protection During Sex? Always [email or web address] Information not available 12/16/2022 What Is Your Relationship Status? [email or web address] Information not available 12/16/2022 Do You Use Your Seat Belt Or Car Seat Routinely? No [email or web address] Information not available 12/16/2022 Are You Sexually Active? Yes [email or web address] Information not available 12/16/2022 Are You Passively Exposed To Smoke? No [email or web address] Information not available 12/16/2022 Has Tobacco Cessation Counseling Been Provided? No [email or web address] Information not available 12/16/2022 Sex: Unknown Functional Status Question Answer Note LastModified by Organizat ion Details LastModified Time Do you use any illicit or recreational drugs? No [email or web address] Information not available 12/16/2022 Do you or have you ever used any other forms of tobacco or nicotine? No Information not available 12/16/2022 What is your level of alcohol consumption? 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 [id number] [email or web address] Information not available 12/16/2022 Family History Relationship Description Onset Age of this Age Resolved Age Notes LastModified by Organization Details LastModified Time Father Heart disease [email or web address] Not available 2018 13:56:25 Father Hypertensive disorder [email or web address] Not available 2018 13:56:56 Father Factor V Leiden mutation negati ve [email or web address] Not available 01/09/2025 13:34:18 Mother Hypertensive disorder [email or web address] Not available 2018 13:56:56 Mother Total abdominal hysterectomy cervic al Dyspla lavelle, 38yrs with NITO [email or web address] Not available 01/09/2025 13:34:18 Mother Sj gren's syndrome [email or web address] Not available 2024 13:34:18 Mother Malignant tumor of esophagus 69 70 dx 12/2021 , 04/2022 , 70 [email or web address] Not available 12/16/2022 11:37:28 Paternal Aunt Blood coagulation disorder [email or web address] Not available 2018 14:02:21 Paternal Aunt Factor V Leiden mutation + for Factor v Leiden [email or web address] Not available 01/09/2025 13:34:18 Maternal Uncle Gastrointest inal hemorrhage 61 61 61. GI bleed with compli cation [email or web address] Not available 10/01/2020 12:43:39 Maternal Grandmother Malignant neoplasm of uterus [email or web address] Not available 2021 14:42:41 Medical History Condition Response Anxiety Disorder Y Other medical conditions Y Anemia Y Depression/ depression Y Thyroid Problems Y GI Problems Y Psychiatric Illness Y Gynecological History Statement/Question Response Abnormal Pap N Flow Heavy Date of LMP 11/22/2021 Sexually Active? Y STIs/STDs N Menses Monthly N HPV Vaccine N Date of Last Pap Smear 12/16/2022 Sexual Problems? N Duration of Flow (days) 10 Current Control Method Hysterectom y LMP Definite N Obstetrics History GPAL:G 3 P 3 0 0 3 Type Value Full Term 3 Living 3 Total 3 Immunizations Vaccine Type Date Status Note Provider Nam e and Address Organization Details Recorded Time Influenza, split virus, quadrivalent, PF 04/29/2020 completed Rima Santana DO [address], [address], [facility] [place] [facility] 10/01/2020 12:46:36 Past Encounters Encounter ID Performer Location Encounter Start Date Encounter Closed Date Diagnosis/Indication Diagnosis SNOMED-CT Code Diagnosis ICD10 Code Diagnosis Note [id number] Rima Santana DO Main Office [address] [facility] [address] [place] [address] 07/30/2019 13:44:56 07/30/2019 17:32:53 Gynecologic examination 84056589 Z01.419 Screening for malignant neoplasm of cervix 230789917 Z12.4 CALL OFFICE IN 4 WEEKS following pap for results if you hasn't heard from us Followup for [facility] or sooner as needed Body mass index 40+ - severely obese 207351391 Z68.43 consider weight loss 10% 38lb CONSIDER LETROZOLE when BMI 55, 330lb Trying to conceive 76341 9001 Z31.9 Polycystic ovary syndrome 037092429 E28.2 will restart Metformin. PLEASE START WITH HALF PILL FOR 6 DAYS THEN 2 HALF PILLS FOR 6 DAYS AND THEN REGULAR DOSING [id number] Rima Santana DO Main Office [address] [facility] [address] [place] [address] 10/01/2020 11:31:45 10/01/2020 13:23:46 Gynecologic examination 78389453 Z01.419 NO PAP 2 TO AGE AND NORMAL IN LAST 3 YEARS, 07/2019 Body mass index 40+ - severely obese 512510844 Z68.43 consider weight loss 10% 38lb CONSIDER LETROZOLE when BMI 55, 330lb Secondary physiologic amenorrhea 95881224 N91.1 Consider having withdraw bleed every 3 mos to decrease chance of uterine cancer Take September, December, Apr and July if no cycle [id number] Rima Santana , DO Main Office [address] [facility] [address] [place] [address] 12/15/2021 13:54:19 12/15/2021 14:48:45 Screening for malignant neoplasm of cervix 827642793 Z12.4 CALL OFFICE IN 4 WEEKS following pap for results if you hasn't heard from us Followup for [facility] or sooner as needed Gynecologi c examination 62192223 Z01.411 Body mass index 40+ - severely obese 322203899 Z68.43 consider weight loss 10% 38lb CONSIDER LETROZOLE when BMI 55, 330lb Menometrorrhagia 4374739 08 N92.1 HEAVY-MENS ES-PROGEST ERONE-Offe red following1 . NSAIDs, Naprosyn or Ibuprofen Day 1-3 of cycle---GI BYPASS NOPE2. Hormones daily Reviewed risks and benefits for allWishes to try PROGESTERO NE FOR HEAVY MENSES.Ple ase schedule follow up for an ultrasound in office [id number] Rima Santana , DO Main Office [address] [facility] [address] [place] [facility] [address] 01/05/2022 15:14:41 01/06/2022 10:10:33 Menometrorrhagia 826283201 N92.1 Reviewed abnormal ultrasound findings-- -14mm polyp inside uterus and would recommend HYSTEROSCO PY, D&CReviewe d risks of injury to bowel, bladder, blood vessels, and surroundin g organs requiring additional surgery.Ri sks of infection requiring antibiotic and long healing time.Risks of bleeding requiring blood transfusio ns.Risks of blood clots in legs that can go to lungs and other organs that can kill.Also discussed that problem may not get better with the surgery.Qu estions were answered. Consent was obtained.Shonna cordero understand s all of her options and wishes to schedule HDC Body mass index 40+ - severely obese 917808313 Z68.43 consider weight loss 10% 38lb CONSIDER LETROZOLE when BMI 55, 330lb [id number] Rima Santana , DO Main Office [address] [place] [address] [place] [address] 02/25/2022 14:41:47 02/26/2022 09:06:16 Postoperative visit 547023384 Z09 Complex at ypical endometrial hyperplasia 097638473 N85.02 complex atypical endometria l hyperplasi aThere is a 25-40% chance of uterine cancer with this pathologyR eviewed option of a hysterecto my with pictures to aid in understand ingUnderst ands that the benefits to the removal of the uterus would be no more mensesRevi ewed that other complaints may not resolve with surgeryUnd erstands that complicati ons are rare, but do happen.Rev iewed risks of injury to bowel, bladder, blood vessels, and surroundin g organs requiring additional surgery.Ri sks of infection requiring antibiotic and long healing time.Risks of bleeding requiring blood transfusio ns.Risks of blood clots in legs that can go to lungs and other organs that can kill.Also discussed that problem may not get better with the surgery.Qu estions were answered. Consent was obtained.P gil understand s all of her options and wishes to scheduleSe nd for gynecologi c oncologist referralOn the day of the visit, I spent minutes 40 Providing care for this patient including preparing to see the patient, obtaining and/or reviewing separately obtained history. Performing a medically appropriat e exam and/or evaluation . Counseling and educating the patient/fa howard. Ordering medication s, tests or procedures . Documentin g clinical informatio n in the medical record. Referring and communicat ion with other health care profession als not separately reported. Trying to conceive 61218 9001 Z31.9 WILL TALK TO ABOUT HAVING MORE KIDS Urgent nicolas pipo to urinate 29897103 R39.15 WILL CHECK CULTURE [id number] Rima Santana , DO Main Office [address] [place] [address] [place] [address] 12/16/2022 10:57:15 12/16/2022 11:58:42 Gynecologic examination 21913241 Z01.419 Complex at ypical endometrial hyperplasia 034588318 N85.02 S/P MAYDA WilkersonO AT EMBLEM 03/29/2022 Body mass index 40+ - severely obese 794843276 Z68.43 OUTSTANDIN G WEIGHT LOSS!!!!!3 2lb in 365days= MINUS 307 calories per day ----it is just MATH Consider the guillermo, LOSE IT or WEIGHT 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 IT MAKES IT MAD NO SOAP down here. Only CETAPHIL NO UNDERWEAR [id number] Rima Santana , Main Office [address] [facility] [address] [place] [address] [place] [address] 12/28/2023 09:12:51 12/28/2023 10:52:03 Gynecologic examination 82982238 Z01.419 NO PAP 2 TO AGE AND NORMAL IN LAST 3 YEARS, 11/2022 Complex at ypical endometrial hyperplasia 949825299 N85.02 S/P JI Wilkerson AT EMBLEM 03/29/2022- --5 yrs 03/29/2027P athology in chart.Pap every 3 yrs until 03/2027, Body mass index 40+ - severely obese 850130075 Z68.43 OUTSTANDIN G WEIGHT LOSS!!!!!1 1lb in 2yrs MINUS 50 CALORIES PER DAY--IT IS JUST MATHlast [id number] in 365days= MINUS 307 calories per day ----it is just MATH Consider the guillermo, LOSE IT or WEIGHT WATCHERSGE T PEDOMETER AND WALK 10-12,000 steps per dayBeing true to yourself Abscess of skin of breast 6533414210 4605175 N61.1 NOT TODAY EPSOM SALT + WARM WATER UNTIL CLOUDY WASHCLOTH TO AREA OR BATHTUB FOR 10 MINS TWICE DAILY UNTIL RESOLVES DO NOT SQUEEZE IT. IT MAKES IT MAD NO SOAP down here. Only CETAPHIL NO UNDERWEAR [id number] Rima Santana , Main Office [address] [facility] [address] [place] [address] [facility] [place] [address] 01/09/2025 13:33:09 01/14/2025 11:39:47 Gynecologic examination 56871462 Z01.419 NO PAP 2 TO AGE AND NORMAL IN LAST 3 YEARS, 11/2022 Complex at ypical endometrial hyperplasia 971487261 N85.02 S/P Rhea BSO AT EMBLEM 03/29/2022- --5 yrs 03/29/2027P athology in chart.Pap every 3 yrs until 03/2027, ----one more Body mass index 40+ - severely obese 058236960 Z68.43 OUTSTANDIN G WEIGHT LOSS!!!!! 11lb in 2yrs MINUS 50 CALORIES PER DAY--IT IS JUST MATHlast [email or web address] in 365days= MINUS 307 calories per day ----it is just MATH Consider the guillermo, LOSE IT or WEIGHT WATCHERSGE T PEDOMETER AND WALK 10-12,000 steps per dayBeing true to yourself Abscess of skin of breast 4155936413 7814548 N61.1 NOT TODAY EPSOM SALT + WARM WATER UNTIL CLOUDY WASHCLOTH TO AREA OR BATHTUB FOR 10 MINS TWICE DAILY UNTIL RESOLVES DO NOT SQUEEZE IT. IT MAKES IT MAD NO SOAP down here. Only CETAPHIL NO UNDERWEAR Health Concerns Section Related Observation LastModified by Organization Detai ls LastModified Time None Recorded Concern Status LastModified by Organization Details LastModified Time None Recorded Advance Directives Directive None Recorded Payers Insurance Date Sequence Insurance Name Policy Number Policy Johnson Covered Member ID Johnson Member ID Guarantor Name 12/14/2021 1 [place] [id number] Holden Martinez [id number] Julianna Juan 12/28/2023 1 [employer] ([place]) [id number] Julianna Arandabler [id number] [place]na [place] 01/14/2025 1 [place] [id number] Holden Martinez [id number] Julianna Juan Notes Date Note Type Note Provider Name and Address Organization Details Recorded Time 01/05/2022 text/html Abnormal BleedingReported bypatient.Onset/Timing: present cycle Quality:passing clots;heavy Severity:changing pad/tampon every 1-2 hours; requires double protection; interferes with daily activities; requires getting up at night; bleeding through onto clothes/sheetsAnnual GYNReported bypatient.History:no gynecologic complaints; no change in interval history Menstrual cycle:Menorrhagia;Irreg ular cycle intervals Urinary symptoms:No hematuria; No incontinence Vulva:No genital lesion Vagina:Normal vaginal discharge Breast:No breast pain; No breast lump; No nipple discharge Sexual complaints:No sexual complaints; No pain during intercourse; Normal libido Preventive measures:Encourage self breast examination; Encourage regular exercise; Followed with Q3 year pap smear and high risk HPV 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 unsure of prior to 07/2021, still irregular [place] SURPRISE CYCLEA lot of labs with new EndocrinologistNow iron def anemia, againWill need to schedule Senior Application Security Consultant and IV iron transfusing-upt was normal cycle11/30-12/13 HEAVY change overnight q1.5 hrs. 12/14 normal today spotting.Endocrinologis t ordered EXTENSIVE LABS including TSH, PROLACTIN, FSH, LH, testosterone Irregular VB continue despite Progesterone. Rima Santana DO [address] [place] [address], [address], [place] [facility] 02/25/2022 14:01:38 02/25/2022 text/html Patient returns for post operative visit.Doing well.Denies complaints.Little cramping and spotting.Urine urgency Rima Santana DO [address] [place] [address], [phone], [place] [facility] 02/25/2022 16:40:35 12/16/2022 text/html Annual GYNReport ed bypatient.History:no gynecologic complaints; no change in interval history Urinary symptoms:No hematuria; No incontinence Vulva:No genital lesion Vagina:Normal vaginal discharge Breast:No breast pain; No breast lump; No nipple discharge Current Contraception:Satisfied with current contraception Sexual complaints:No sexual complaints; No pain during intercourse; Normal libido Preventive measures:Encourage self breast examination; Encourage regular exercise; Followed with Q3 year pap smear and high risk HPV typing Sexually active w/. Denies complaints. No desire for children in the next yr. control hysterectomy No medical or surgical changes over last year x lost mom to esophageal CARIGHT BREAST MASS---SQUEEZE AND NOTHING CAME OUT Rima Santana DO [address] [place] [address], [phone], [facility] [place] [facility] 12/16/2022 11:53:34 12/28/2023 text/html Annual GYNReport ed bypatient.History:no gynecologic complaints; no change in interval history Urinary symptoms:No hematuria; No incontinence Vulva:No genital lesion Vagina:Normal vaginal discharge Breast:No breast pain; No breast lump; No nipple discharge Sexual complaints:No sexual complaints; No pain during intercourse; Normal libido Preventive measures:Encourage self breast examination; Encourage regular exercise; Followed with Q3 year pap smear and high risk HPV typing Sexually active w/. Denies complaints.No desire for children in the next yr. control hysterectomyNo medical or surgical changes over last year Rima Santana DO [address] [place] [address], [phone], [facility] [place] [facility] 12/28/2023 09:49:33 01/09/2025 text/html Annual GYNReport ed bypatient.History:no gynecologic complaints; no change in interval history Urinary symptoms:No hematuria; No incontinence Vulva:No genital lesion Vagina:Normal vaginal discharge Breast:No breast pain; No breast lump; No nipple discharge Current Contraception:Satisfied with current contraception Sexual complaints:No sexual complaints; No pain during intercourse; Normal libido Preventive measures:Encourage self breast examination; Encourage regular exercise; Followed with Q3 year pap smear and high risk HPV typing Sexually active w/. Denies complaints.No desire for children in the next yr. 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 Rima Santana DO [address] [place] [address], [phone], [place] - [facility] 01/09/2025 19:10:30 OBGyn Episode Ob Episode Information Episode Created Date Number of Fetuses Patient Bloodtype Patient rh Status Prepregnancy Weight lbs Domestic Partner Domestic Partner Phone Father Name Seafood Process Worker Status 07/19/20 1 CLOSED Fetus Data First Name Last Name Admitted to NICU Weight (g) Sex Living Outcome Pediatric Complications Fetus ID Race Codes Race Delivery Type 3430.06 2704 F Full Term 2907 vaginal Gregory Calculation Initial Gregory Date Initial Exam Date Initial Exam Provider Initial Ultrasound Date Last Menstrual Period Date Ultra Sound Weeks Gestation 0 Eighteen To Twenty Week Gregory Update Ultra Sound Date Fundal Height At Umbil Quickening Date Ultra Sound Latest Weeks Gestation Final Gregory Confirmed By Final Gregory Confirmed Date Final Gregory Date Ultra Sound Latest Days Gestation 0 0 Menstrual History Last Menstrual Date Menses Monthly On Bcp Conception Prior Menses Frequency Hcg Plus Date Menarche Onset Age Delivery Information Delivery Date Delivery Type Labor Anesthesia Weeks Gestation Incision Type Labor Labor Length Hrs Delivered By Post Complications Tubal Sterilization Discharge Date Comments 3 38 CW delivered Discharge Information Feeding Method Contraceptive Method Maternal HG B and HCT Levels Ob Episode Information Episode Created Date Number of Fetuses Patient Bloodtype Patient rh Status Prepregnancy Weight lbs Domestic Partner Domestic Partner Phone Father Name Seafood Process Worker Status 07/19/20 19 1 CLOSED Fetus Data First Name Last Name Admitted to NICU Weight (g) Sex Living Outcome Pediatric Complications Fetus ID Race Codes Race Delivery Type 3742.13 4 F Full Term 2908 vaginal Gregory Calculation Initial Gregory Date Initial Exam Date Initial Exam Provider Initial Ultrasound Date Last Menstrual Period Date Ultra Sound Weeks Gestation 0 Eighteen To Twenty Week Gregory Update Ultra Sound Date Fundal Height At Umbil Quickening Date Ultra Sound Latest Weeks Gestation Final Gregory Confirmed By Final Gregory Confirmed Date Final Gregory Date Ultra Sound Latest Days Gestation 0 0 Menstrual History Last Menstrual Date Menses Monthly On Bcp Conception Prior Menses Frequency Hcg Plus Date Menarche Onset Age Delivery Information Delivery Date Delivery Type Labor Anesthesia Weeks Gestation Incision Type Labor Labor Length Hrs Delivered By Post Complications Tubal Sterilization Discharge Date Comments 6 40.2 Discharge Information Feeding Method Contraceptive Method Maternal HG B and HCT Levels Ob Episode Information Episode Created Date Number of Fetuses Patient Bloodtype Patient rh Status Prepregnancy Weight lbs Domestic Partner Domestic Partner Phone Father Name Seafood Process Worker Status 07/20/20 19 1 CLOSED Fetus Data First Name Last Name Admitted to NICU Weight (g) Sex Living Outcome Pediatric Complications Fetus ID Race Codes Race Delivery Type F Full Term 2909 vaginal Gregory Calculation Initial Gregory Date Initial Exam Date Initial Exam Provider Initial Ultrasound Date Last Menstrual Period Date Ultra Sound Weeks Gestation 0 Eighteen To Twenty Week Gregory Update Ultra Sound Date Fundal Height At Umbil Quickening Date Ultra Sound Latest Weeks Gestation Final Gregory Confirmed By Final Gregory Confirmed Date Final Gregory Date Ultra Sound Latest Days Gestation 0 0 Menstrual History Last Menstrual Date Menses Monthly On Bcp Conception Prior Menses Frequency Hcg Plus Date Menarche Onset Age Delivery Information Delivery Date Delivery Type Labor Anesthesia Weeks Gestation Incision Type Labor Labor Length Hrs Delivered By Post Complications Tubal Sterilization Discharge Date Comments 8 Local false Discharge Information Feeding Method Contraceptive Method Maternal HG B and HCT Levels
== END 2025-01-31 08:52 | disposition home or self-care (01) ==
PROVIDERS: Visit Provider Internal Medicine Endocrinology, Diabetes & Metabolism
DX: E23.7 Disorder of pituitary gland, unspecified (principal)
CPT/HCPCS: 70553; A9577